=== PATIENT | female | born 1940 | race Caucasian/White ===

== ENCOUNTER → 2023-07-07 09:14 | Outpatient (REF) | payer MEDICARE, BC, SELFPAY | LOC: RAD 09:14 | PROVIDERS: ATTENDING PHYSICIAN Internal Medicine Gastroenterology; FAMILY PHYSICIAN Family Medicine | DX: R14.0 Abdominal distension (gaseous) (principal) | CPT/HCPCS: 74246; 74248 ==

== ENCOUNTER 2023-07-20 08:32 | Day surgery (SDC) | payer MEDICARE, BC, SELFPAY ==
[2023-07-20] VITALS (9 sets, daily range): BP systolic 125–150; BP diastolic 42–76
[2023-07-20] MEDS: CYSVIEW KIT 100 MG INTRAVES (12:25)
[2023-07-20] MEDS: NORMOSOL-R 1000 IV (12:26)
[2023-07-20] MEDS: DETROL LA 4 MG PO (14:01)
[2023-07-20] MEDS: Pyridium 200 MG PO (14:01)
== END 2023-07-20 14:52 | disposition home or self-care (01) ==
LOC: SDS 08:32
PROVIDERS: ATTENDING PHYSICIAN Surgery
DX: N32.89 Other specified disorders of bladder (principal); D49.4 Neoplasm of unspecified behavior of bladder
CPT/HCPCS: 52204; C9738; 88305; A9589

== ENCOUNTER → 2023-10-20 10:55 | Outpatient (REF) | payer MEDICARE, BC, SELFPAY | LOC: RAD 10:55 | PROVIDERS: ATTENDING PHYSICIAN Physician Assistant Medical | DX: I87.2 Venous insufficiency (chronic) (peripheral) (principal) | CPT/HCPCS: 93970 ==

== ENCOUNTER → 2023-11-19 08:58 | Outpatient (REF) | payer MEDICARE, BC, SELFPAY | LOC: RCS 08:58 | PROVIDERS: ATTENDING PHYSICIAN Internal Medicine Cardiovascular Disease; FAMILY PHYSICIAN Physician Assistant Medical | DX: I34.0 Nonrheumatic mitral (valve) insufficiency (principal) | CPT/HCPCS: 93306 ==

== ENCOUNTER 2024-03-16 19:23 | Inpatient (IN) | payer MEDICARE, BC, SELFPAY ==
[2024-03-16] VITALS (7 sets, daily range): BP systolic 132–150; BP diastolic 70–90; BMI 30.6; BMI 29.8
[2024-03-16 15:24] LABS: % Basophils 0.7 % (0-2); % Eosinophils 1.5 % (0-6); % Immature Granulocytes 0.3 % (0-0.5); % Lymphocytes 18.9 % (20.5-51.1); % Monocytes 8.9 % (1.7-9.3); % Neutrophils 69.7 % (42.2-75.2); Absolute Eosinophils 0.1 10^3/uL (0-0.7); Absolute Lymphocytes 1.1 10^3/uL (1.2-3.4); Absolute Monocytes 0.5 10^3/uL (0.1-0.6); Absolute Neutrophils 4.1 10^3/uL (1.4-6.5); Hemoglobin 10.9 g/dL (12.0-16.0); Mean Corp Hgb Conc. 31.1 g/dL (33.0-37.0); Mean Corpuscular Hgb 27.7 pg (27.0-31.0); Mean Corpuscular Volume 88.8 fL (81.0-99.0); Nucleated Red Blood Cells % 0 %; Platelet Count 351 10^3/uL (130-400); Red Blood Cell Count 3.94 10^6/uL (4.20-5.40); Red Cell Dist. Width 17.5 % (11.5-14.5); White Blood Cell Count 5.9 10^3/uL (4.8-10.8)
[2024-03-16 15:29] LABS: ALT (SGPT) 13 U/L (0-35); AST (SGOT) 29 U/L (14-36); Albumin 3.4 g/dl (3.5-5.0); Alkaline Phosphatase 77 U/L (38-126); Blood Urea Nitrogen 32 mg/dl (7-17); Calcium 8.4 mg/dl (8.4-10.2); Carbon Dioxide 28 mmol/L (22-30); Chloride 104 mmol/L (98-107); Glucose 118 mg/dl (70-99); Potassium 4.4 mmol/L (3.5-5.1); Sodium 141 mmol/L (135-145); Total Bilirubin 0.4 mg/dl (0.2-1.3); Total Protein 7.9 g/dl (6.3-8.2)
[2024-03-16 15:31] LABS: Lactic Acid 0.6 mmol/L (0.7-2.0)
--- NOTE | 2024-03-16 15:58 | ED.GENMED ---
History of Present Illness
<Coco Girard PA-C - Last Filed: 03/16/24 20:27>
General
Chief Complaint: Musculo-Skeletal Complaint
Source: patient
Exam Limitations: none
Time Seen by Provider: 03/16/24 15:25
Nursing documentation reviewed up to this point in time: agreed with
History of Present Illness
History of Present Illness:
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
lower extremity pain for the past few weeks. Patient states that when this first started, she noticed pain at the front of her knee and noticed a bump there. Patient reports that it started to become increasingly painful and the pain radiating
down the leg and she also started to get swelling in that leg as well as overlying redness. Patient also reports subjective fevers and chills. Patient states that she went to see her orthopedist Dr. Hamlin today who did her knee replacement and he
aspirated fluid from the left knee mass. Dr. Hamlin is concern for possible intra articular spread as well, patient does have a left knee replacement. She denies chest pain, shortness of breath, nausea or vomiting, diarrhea or constipation. She
states that ambulation is painful, she has not had any recent falls.
Past History
<Coco Girard PA-C - Last Filed: 03/16/24 20:27>
Past History
ED Past Medical History: Arrthythmia, NIDDM, Valvular disease, Hypothyroidism and Other
ED Past Surgical History: Appendectomy, Cardiac (Ablation for SVT/A. fib), Gynecological (Tubal ligation), Orthopedic (Shoulder surgery knee surgery), Tonsilectomy and Other (Eye operation)
Social History
Tobacco: Former smoker
Alcohol: Occasional (One glass a wine per day)
Drug: None
Personal:
Living: with family
Employment: Retired
Family History
Family History: Other (Noncontributory)
Review of Systems
<Coco Girard PA-C - Last Filed: 03/16/24 20:27>
Review of Systems
All Other Systems: ROS reviewed and negative except as documented in HPI and ROS
Phy Exam
<Coco Girard PA-C - Last Filed: 03/16/24 20:27>
Physical Exam
Physical Exam:
General: Patient is well appearing and in no acute distress; non-toxic
Skin: Warm and dry, erythema noted on the left lower extremity with soft tissue swelling, 2 cm fluctuant mass noted to left anterior knee
Head: Normocephalic, atraumatic
Eyes: Sclera non-icteric. EOMs intact.
Cardiac: Heart rate mildly tachycardic, irregular regular rhythm
Peripheral Vascular: Left-sided pedal pitting edema noted
Pulm: Normal respiratory effort, no wheezes, rales, rhonchi
Musculoskeletal: Full range of motion of bilateral lower extremity
Neuro: CN II-XII intact, no focal neurologic deficits.
Psychiatric: Appropriate mood and affect.
Course
<Coco Giradr PA-C - Last Filed: 03/16/24 20:27>
Orders/Labs/Results
Orders:
Orders
03/16/24 14:55
Electrocardiogram (*1) Urgent
Reason for Study: Other
Other Reason for Exam: Possible Sepsis
EKG- Treatment ONCE
03/16/24 15:05
C-Reactive Protein Urgent
Comment: ADD ON
Complete Blood Count/With Diff Urgent
Comprehensive Metabolic Panel Urgent
Erythrocyte Sed Rate Urgent
Comment: ADD ON
Lactic Acid Q4H
Comment: ON ICE, CANCEL 2ND ORDER IF FIRST LACTIC ACID LEVEL <2
03/16/24 16:13
CR Knee - Left 4 Or More View* Urgent
Comment:
Reason For Exam: left knee pain
US Legs, Left [US Periph Venous LOWER Ext LT] Urgent
Comment:
Reason For Exam: left calf swelling
03/16/24 16:24
Electrocardiogram (*1) Urgent
Reason for Study: Tachycardia
Blood Culture Q30M
ONEAL Source: Blood/Venous
Specimen Description:
Blood Culture Q30M
ONEAL Source: Blood/Venous
Specimen Description:
Wound Culture [Wound/Abscess/Other Culture] Urgent
ONEAL Source: Abscess
Specimen Description:
Date Specimen was Collected: 03/16/24
Time Specimen was Collected: 16:22
03/16/24 19:08
Admit/Transfer Patient As Directed
Co-Sign Provider:
Level of Care: Inpatient admission
Assign to:: Telemetry
Physician / Group: hospitalist
Diagnosis: cellulitis
Reason for Telemetry: Medication for Arrhythmia
Date to Stop Telemetry: 03/18/24
Time to Stop Telemetry: 11:00
Reason for Hospitalization: cellulitis
Expected length of stay greater than two midnights?: Yes
ELOS- Estimated Length of Stay in days: 2
I certify the patient meets the requirements for IP care: Yes
PRN Pain Medication Management As Directed
May give lesser potent ordered pain med per pt: Yes
preference::
Protocol:: Medication orders for pain may be administered in a
manner that supports deferring to patient preference
when the pt is:
- Requesting an ordered lesser potent pain medication.
Least to most potent pain medications are defined
as: acetaminophen < NSAID < tramadol < opioids
(morphine, oxycodone, hydromorphone).
- Requesting a lesser dose of the same medication IF
ORDERED.
- Requesting a less intrusive route of administration
if both routes are prescribed by the provider (PO <
IV).
03/16/24 19:10
Code Status As Directed
Resuscitation Status: Full Code
03/16/24 19:20
Add On- LAB Urgent
Tests Added?: CRP, ESR
03/18/24 11:00
DC Protocol for Telemetry ONCE
Abnormal Lab Results
03/16/24
15:05
RBC 3.94 L 10^6/uL
(4.20-5.40)
Hgb 10.9 L g/dL
(12.0-16.0)
Hct 35.0 L %
(37.0-47.0)
MCHC 31.1 L g/dL
(33.0-37.0)
RDW 17.5 H %
(11.5-14.5)
Absolute Lymphs (auto) 1.1 L 10^3/uL
(1.2-3.4)
Lymphocytes % 18.9 L %
(20.5-51.1)
ESR 82 H mm/hour
(0-20)
BUN 32 H mg/dl
(7-17)
Glucose 118 H mg/dl
(70-99)
Lactic Acid 0.6 L mmol/L
(0.7-2.0)
C-Reactive Protein 53.50 H mg/L
(0.0-10.00)
Albumin 3.4 L g/dl
(3.5-5.0)
03/16/24 15:05
03/16/24 15:05
Vital Signs
Initial and Last Documented VS:
Initial Vital Signs
Temp Pulse Resp BP Pulse Ox
99.6 F 127 16 150/90 98
03/16/24 14:51 03/16/24 14:51 03/16/24 14:51 03/16/24 14:51 03/16/24 14:51
Last Documented Vital Signs
Temp Pulse Resp BP Pulse Ox
99.6 F 104 21 133/71 96
03/16/24 14:51 03/16/24 19:15 03/16/24 19:15 03/16/24 17:19 03/16/24 19:15
<Duc Alatorre, DO - Last Filed: 03/16/24 17:16>
Orders/Labs/Results
Orders:
Orders
03/16/24 14:55
Electrocardiogram (*1) Urgent
Reason for Study: Other
Other Reason for Exam: Possible Sepsis
EKG- Treatment ONCE
03/16/24 15:05
C-Reactive Protein Urgent
Comment: ADD ON
Complete Blood Count/With Diff Urgent
Comprehensive Metabolic Panel Urgent
Erythrocyte Sed Rate Urgent
Comment: ADD ON
Lactic Acid Q4H
Comment: ON ICE, CANCEL 2ND ORDER IF FIRST LACTIC ACID LEVEL <2
03/16/24 16:13
CR Knee - Left 4 Or More View* Urgent
Comment:
Reason For Exam: left knee pain
US Legs, Left [US Periph Venous LOWER Ext LT] Urgent
Comment:
Reason For Exam: left calf swelling
03/16/24 16:24
Electrocardiogram (*1) Urgent
Reason for Study: Tachycardia
Blood Culture Q30M
ONEAL Source: Blood/Venous
Specimen Description:
Blood Culture Q30M
ONEAL Source: Blood/Venous
Specimen Description:
Wound Culture [Wound/Abscess/Other Culture] Urgent
ONEAL Source: Abscess
Specimen Description:
Date Specimen was Collected: 03/16/24
Time Specimen was Collected: 16:22
03/16/24 19:08
Admit/Transfer Patient As Directed
Co-Sign Provider:
Level of Care: Inpatient admission
Assign to:: Telemetry
Physician / Group: hospitalist
Diagnosis: cellulitis
Reason for Telemetry: Medication for Arrhythmia
Date to Stop Telemetry: 03/18/24
Time to Stop Telemetry: 11:00
Reason for Hospitalization: cellulitis
Expected length of stay greater than two midnights?: Yes
ELOS- Estimated Length of Stay in days: 2
I certify the patient meets the requirements for IP care: Yes
PRN Pain Medication Management As Directed
May give lesser potent ordered pain med per pt: Yes
preference::
Protocol:: Medication orders for pain may be administered in a
manner that supports deferring to patient preference
when the pt is:
- Requesting an ordered lesser potent pain medication.
Least to most potent pain medications are defined
as: acetaminophen < NSAID < tramadol < opioids
(morphine, oxycodone, hydromorphone).
- Requesting a lesser dose of the same medication IF
ORDERED.
- Requesting a less intrusive route of administration
if both routes are prescribed by the provider (PO <
IV).
03/16/24 19:10
Code Status As Directed
Resuscitation Status: Full Code
03/16/24 19:20
Add On- LAB Urgent
Tests Added?: CRP, ESR
03/18/24 11:00
DC Protocol for Telemetry ONCE
Abnormal Lab Results
03/16/24
15:05
RBC 3.94 L 10^6/uL
(4.20-5.40)
Hgb 10.9 L g/dL
(12.0-16.0)
Hct 35.0 L %
(37.0-47.0)
MCHC 31.1 L g/dL
(33.0-37.0)
RDW 17.5 H %
(11.5-14.5)
Absolute Lymphs (auto) 1.1 L 10^3/uL
(1.2-3.4)
Lymphocytes % 18.9 L %
(20.5-51.1)
ESR 82 H mm/hour
(0-20)
BUN 32 H mg/dl
(7-17)
Glucose 118 H mg/dl
(70-99)
Lactic Acid 0.6 L mmol/L
(0.7-2.0)
C-Reactive Protein 53.50 H mg/L
(0.0-10.00)
Albumin 3.4 L g/dl
(3.5-5.0)
03/16/24 15:05
03/16/24 15:05
Vital Signs
Initial and Last Documented VS:
Initial Vital Signs
Temp Pulse Resp BP Pulse Ox
99.6 F 127 16 150/90 98
03/16/24 14:51 03/16/24 14:51 03/16/24 14:51 03/16/24 14:51 03/16/24 14:51
Last Documented Vital Signs
Temp Pulse Resp BP Pulse Ox
99.6 F 104 21 133/71 96
03/16/24 14:51 03/16/24 19:15 03/16/24 19:15 03/16/24 17:19 03/16/24 19:15
Keyurlt;Coco Girard PA-C - Last Filed: 03/16/24 20:27>
MDM/Problems Addressed
Differential Diagnosis Includes:
Differentials include osteoarthritis, septic arthritis, cellulitis, abscess, folliculitis,
MDM/Problems Addressed:
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
lower extremity pain for the past few weeks. She also started develop redness and swelling of the left lower extremity. On physical exam, she has a fluctuant mass noted to the left anterior knee with associated surrounding erythema and swelling.
She saw her orthopedist today who is concerned about possible septic arthritis versus MRSA infection of the skin. Will admit for further evaluation IV antibiotics. Patient accepted by hospitalist for admission.
Chronic conditions affecting care:
Chronic spinal infection, hypothyroidism, chronic UTIs
<Coco Girard PA-C - Last Filed: 03/16/24 20:27>
*Pulse Oximetry
Patient hypoxic: no
*Critical Care Note
Total Time (30-74mins, 75-104mins- exclusive of procedures): Not Applicable
Data Reviewed
Review of Other/Old Records Reveals: Records (Reviewed discharge summary from 01/08/2023, patient seen for shortness of breath)
Source: patient and records
<Coco Girard PA-C - Last Filed: 03/16/24 20:27>
Patient Management
Discussion with other providers: Assignment Agent (Dr. Hamlin)
Escalation/DeEscalation of care consider admission/obs:
I did speak to Dr. Hamlin on the phone today regarding patient's case--he recommends patient be admitted and expresses concern that there may be infection within the joint itself. He saw the patient in the office today and aspirated fluid from the
abscess. He does not want knee joint aspiration or I and D of the abscess at this time and reports that an I&D of the knee abscess is too high risk and would like to take patient to the OR for incision and drainage.
ED Attending Note
<MICK Del Cid Last Filed: 03/16/24 20:27>
-
Portions of this chart may have been created with voice recognition software.� Occasional wrong word or��sound alike� substitutions may have occurred due to the inherent limitations of voice recognition software.
<Duc Alatorre DO - Last Filed: 03/16/24 17:16>
ED Attending Note
Patient seen and examined by attending physician: Yes
I performed the substantive portion of visit, reviewed & personally made and approve the management plan that is documented in note by myself or ANGEL.: Yes
ED Attending Note:
I have seen and evaluated the patient with a [id number] encounter. I have spoken to the advance practicer provider and involved in the medical history, the physical exam, medical decision making.
Evaluation and management service: agree unless noted differently below.
Results interpretation: agree unless noted differently below.
Focused HPI: 84-year-old female presenting for evaluation of abscess to her left leg. Patient orthopedics. It was apparently drained and sent for culture. She is already on chronic doxycycline for spine infection
Physical exam: Sitting in bed comfortably. Abscess noted to right leg around the tibial plateau. Surrounding cellulitic changes noted
Medical Decision Making: Orthopedics and the patient and will evaluate in the morning. Will admit
Discharge Plan
Departure
Patient Disposition: Admit
Date of Disposition: 03/16/24
Time of Disposition: 18:41
Admit to: Telemetry
Presentation/result/management discussed w/ accepting MD/DO: Hospitalist
Condition: Fair
Discharge Problem:
Cellulitis, Infection of knee
Interventions
Interventions:
*Risk Screen - Suicide Last Done: 03/16/24 14:51
*General Assessment Last Done: 03/16/24 14:51
*Neglect/Abuse Screening Last Done: 03/16/24 14:51
ED- Fall Risk Assessment Last Done: 03/16/24 15:45
*ED COVID-19 Vaccine History Last Done: 03/16/24 15:45
ED-Musculoskeletal Assessment Last Done: 03/16/24 15:45
--- NOTE | 2024-03-16 18:57 | HPS.HSE ---
Family Physician
-
Family Physician: Nannette Louise
Chief Complaint
-
Left leg swelling and redness
History of Present Illness
84 y.o female with a past medical history significant for proximal atrial fibrillation on anticoagulation, hypertension, CHF, hypothyroid and history of spinal surgery and chronic bacterial suppression with doxycycline presenting to the emergency
department with swelling and redness of the left leg.
Patient reports that she has been having pain and swelling in that leg for a few weeks now. States he particularly notices the swelling has worsened a few days ago. She complained of redness below the knee to just above the ankle. She has some
mild ambulatory difficulties with this. She reports having chills at home. She denies of maggy fevers. Patient has a history of spine surgery with implanted foreign body, incidental finding of possible abscess during that procedure and is now
currently on chronic doxycycline suppression. He has had no recent hospitalizations. She denies water antibiotic use recently.
She was seen in the office today and had a incision and drainage with culture sent.
In the Emergency Department she was afebrile with temp of 99.6, blood pressure was 133/71 and satting 99% room air. ECG shows atrial fibrillation at a ventricular rate of 111. CBC was unremarkable. Likewise electrolytes BUN/creatinine were within
normal limits. Ultrasound of the left lower extremities negative for DVT.
Medical History
Past Medical History
Past Medical History: Reports Arrhythmia (Atrial fibrillation), CHF, HTN, Hypercholesterolemia and Hypothyroidism
Past Surgical History: Reports Orthopedic (Spine surgery, bilateral total knee arthroplasty)
Social History
Tobacco: Non-smoker
Alcohol: None
Drug: None
Personal:
Living: With Family
Employment: Retired
Family History
Family History: Not pertinent
Allergies / Home Medications
Allergies reflects when Allergies were last updated in [employer].
Home Medications with original date entered in [employer]
Allergy/Medication List:
Allergies
Allergy/AdvReac Type Severity Reaction Status Date / Time
vancomycin Allergy Itching, Verified 03/16/24 14:51
Lip
swelling,
Erythema
Home Medications
ascorbic acid (vitamin C) 500 mg tablet (Vitamin C) 500 mg PO DAILY Supplement 12/01/12
levothyroxine 125 mcg tablet 125 mcg PO DAILY@0400 Thyroid 12/01/12
cholecalciferol (vitamin D3) 50 mcg (2,000 unit) tablet 2,000 unit PO DAILY Supplement 12/02/12
calcium carbonate 600 mg PO DAILY Supplement 12/10/20
vitamin E 670 mg (1,000 unit) capsule 1,000 unit PO DAILY Supplement 12/10/20
atorvastatin 10 mg tablet (Lipitor) 10 mg PO DAILY High cholesterol 07/23/22
omeprazole 20 mg tablet,delayed release 20 mg PO DAILY gerd 07/23/22
apixaban 5 mg tablet (Eliquis) 5 mg PO BID Blood Clot Prevention/Tx 01/06/23
cyanocobalamin (vitamin B-12) 500 mcg tablet 500 mcg PO DAILY Supplement 01/06/23
losartan 25 mg tablet 25 mg PO DAILY Blood Pressure 01/06/23
potassium chloride 10 mEq tablet,extended release 20 meq PO DAILY Electrolyte Repletion 01/06/23
acetaminophen 500 mg tablet 1,000 mg PO Q6HPRN PRN mild pain 07/15/23
darbepoetin joseluis in polysorbat 200 mcg/0.4 mL in polysorbate injection syringe (Aranesp) 200 mcg SC DAILYPRN PRN Hgb<11 07/15/23
doxycycline hyclate 100 mg tablet 100 mg PO BID 07/15/23
gabapentin 100 mg capsule 100 mg PO TID 07/15/23
albuterol sulfate 90 mcg/actuation aerosol inhaler 2 puff inhalation R Q6HPRN PRN sob 03/16/24
furosemide 40 mg tablet 40 mg PO DAILY 03/16/24
metoprolol succinate 25 mg tablet,extended release 24 hr 12.5 mg PO DAILY 03/16/24
polyethylene glycol 3350 17 gram oral powder packet (Miralax) 17 g PO DAILYPRN PRN constipation 03/16/24
Review of Systems
-
Constitutional: Reports Chills
EENT: Reports No Symptoms
Respiratory: Reports No Symptoms
Cardiac: Reports No Symptoms
Abdomen/GI: Reports No Symptoms
: Reports No Symptoms
Musculoskeletal: Reports Joint Swelling
Skin: Reports Rash and Other
Neurological: Reports No Symptoms
Endocrine: Reports No Symptoms
Hematologic/Lymphatic: Reports No Symptoms
Psych: Reports No Symptoms
Physical Exam
Vital Signs
Vital Signs
Temp Pulse Resp BP Pulse Ox
99.6 F 110 23 133/71 98
03/16/24 14:51 03/16/24 17:30 03/16/24 17:30 03/16/24 17:19 03/16/24 17:19
Physical Exam
General: Well Developed, Well Nourished and No Apparent Distress
HEENT: NormoCephalic, Anicteric, Moist mucous membranes and Atraumatic
Respiratory: Clear
Cardiac: S1/S2 and Irregular Rhythm
Breast: Deferred by me
GI: Soft, Non Tender, Non Distended and Normal Bowel Sounds
Genito-urinary: Deferred by me
Musculoskeletal: No Clubbing, No Cyanosis, No Edema and Other (No joint effusion)
Skin: Warm and Other (Small collection just below the knee, skin redness in the left leg above the ankle and below the knee. Mild induration.)
Neuro: AO x 3
Hematologic/Lymphatic: No Lymphadenopathy
Psych: Calm
Laboratory Results
-
03/16/24 15:05
03/16/24 15:05
Laboratory Results
Lactic Acid Cancelled 03/16/24 19:00
Total Bilirubin 0.4 mg/dl (0.2-1.3) 03/16/24 15:05
AST 29 U/L (14-36) 03/16/24 15:05
ALT 13 U/L (0-35) 03/16/24 15:05
Alkaline Phosphatase 77 U/L (38-126) 03/16/24 15:05
Data Reviewed
-
Diagnostic Radiology: Image Personally Visualized and interpreted
Ultrasound: Report Reviewed by me
Medical Tests (Nuc Med, Echo, EKG etc): Image Personally Visualized and interpreted
Lab Data: Labs Reviewed by me
Old Records: Reviewed
Impression/Plan
-
IMPRESSION:
PLAN:
1. Purulent Cellulitis - There is obvious fluid collection, erythema and edema. She has low grade temps. The collection is below the knee. The knee does not show effusion, no decrease in ROM. No tenderness to palpation of knee. Possible
bursitis.
- admit to telemetry due to afib
- she has had blood and fluid cultures sent
- abx regimen = clindamycin iv (hx of urine mrsa but otherwise no mrsa history) but concern for caMRSA. Patient on oral doxycycline chronically and has severe allergy to vancomycin
- ID consult
- Dr. Davis had office visit with tap of overlying abscess on the left knee and culture and wants to see in am, did not consult.
2. pAFIB - Slightly tachycardic afib
- amio 200 daily
- continue rate control with metoprolol succinate with prn metoprolol tartrate iv
- apixaban
3. Mitral regurge/ CHF - euvolemic
- continue lasix 40 daily, losartan 25 daily with hold parameters
DVT PPX - on apixaban
Code status - full code
[2024-03-16 19:56] LABS: Erythrocyte Sed Rate 82 mm/hour (0-20)
[2024-03-16] MEDS: CLEOCIN 50 IV (22:11)
[2024-03-16] MEDS: NEURONTIN 100 MG PO (22:11)
[2024-03-16] MEDS: VIBRAMYCIN 100 MG PO (22:11)
[2024-03-16] MEDS: ZOFRAN 4 MG IV (22:54)
--- NOTE | 2024-03-17 01:33 | PTCARENOTE ---
Pt transferred from ED. Pt ambulated into room with assistance. Pt AAOX3, able to make needs known, VSS. Pt oriented to unit, call parker within reach. Will continue with current plan.
[2024-03-17 03:02] VITALS: BP 119/69
[2024-03-17] MEDS: SYNTHROID 125 MCG PO (03:17)
[2024-03-17] MEDS: CLEOCIN 50 IV (03:18)
[2024-03-17 05:35] VITALS: BMI 29.8
[2024-03-17 07:00] VITALS: BP 128/81
--- NOTE | 2024-03-17 07:45 | W.PN.UPDATE ---
Addendum entered and electronically signed by Erich Hamlin MD 03/17/24 14:28:
Patient seen and examined. AVSS. Unchanged from yesterday. WBC normal. ESR 82 and CRP 53.5. Gram stain without bacteria. Blood cultures and abscess cultures pending. Appreciate ID consult and hospitalist assistance. MRI reveals a collection
in the pes bursa with some fluid about the knee joint. Knee ROM is 0-105 degrees without increased pain. Thickened synovium about the knee joint without erythema. Erythema and swelling as yesterday distal to the knee joint in the area of the pes
bursa. Have discussed treatment with the patient and her . Have recommended bedside aspiration of the knee joint to determine if concern for periprosthetic joint infection. Knee prepped with betadine and alcohol. No fluid able to be
aspirated from the knee joint. Based on an dry tap of the knee joint, highly unlikely patient currently has periprosthetic infection. Plan for tomorrow for I&D of the pes bursa without entering the knee joint. NPO after MN. Hold Eliquis. May
continue antibiotics.
Original Note:
Update Note
Progress Note Update
Patient underwent left total knee arthroplasty nearly [address] Hamlin. Unfortunately she has noted painful swelling with redness over the anterior aspect of her knee. X-rays of the left knee are negative for fracture, dislocation or
evidence of mechanical failure. She did undergo ultrasound which was negative for DVT but edema noted in the lower extremity. Dr. Hamlin did see her in office yesterday and aspirated the prepatellar region for blood/purulent fluid which he sent
for cultures with sensitivities. She was admitted to the hospital and started on antibiotics. Patient has declined her Eliquis last night. Her last dose of Eliquis was March 16, 2020 4 in the morning. No white count while ESR is 82 and CRP
was 53.50. Examination of the left knee had well-healed surgical incision. No pain to palpation about the knee joint. No significant effusion appreciated. Passive motion 0 to 90 degrees without pain and no evidence of instability. Along the
prepatella region there is a small pustule with trace erythema and fluctuance in the prepatellar bursa. Minimal pain noted in this vicinity. Calf is soft and nontender. Distal neurovascular was intact. At this juncture I am going to order MRI of
the left knee with that suppression for surgical planning. She is going to be n.p.o. after midnight. Dr. Hamlin to reevaluate later today.
[2024-03-17 08:00] VITALS: BMI 29.8
[2024-03-17] MEDS: VIBRAMYCIN 100 MG PO (08:00)
[2024-03-17] MEDS: LIPITOR 10 MG PO (08:00)
[2024-03-17] MEDS: NEURONTIN 100 MG PO ×3 (08:00→20:57)
[2024-03-17] MEDS: COZAAR 25 MG PO (08:00)
[2024-03-17] MEDS: LASIX 40 MG PO (08:00)
[2024-03-17] MEDS: TOPROL XL 12.5 MG PO (08:01)
[2024-03-17] MEDS: PROTONIX 40 MG PO (08:01)
[2024-03-17 08:41] LABS: Hematocrit 30.4 % (37.0-47.0); Hemoglobin 9.4 g/dL (12.0-16.0); Mean Corp Hgb Conc. 30.9 g/dL (33.0-37.0); Mean Corpuscular Hgb 28.1 pg (27.0-31.0); Mean Platelet Volume 9.3 fL (7.4-10.4); Platelet Count 267 10^3/uL (130-400); Red Blood Cell Count 3.34 10^6/uL (4.20-5.40); Red Cell Dist. Width 17.5 % (11.5-14.5); White Blood Cell Count 4.3 10^3/uL (4.8-10.8)
[2024-03-17 08:55] LABS: Blood Urea Nitrogen 26 mg/dl (7-17); Calcium 7.6 mg/dl (8.4-10.2); Carbon Dioxide 26 mmol/L (22-30); Chloride 105 mmol/L (98-107); Estimated Creatinine Clearance 48 ml/min; Glucose 83 mg/dl (70-99); Magnesium 1.7 mg/dl (1.6-2.3); Potassium 4.2 mmol/L (3.5-5.1); Sodium 139 mmol/L (135-145); eGFR > 60.00
--- NOTE | 2024-03-17 09:32 | CON.ID ---
Consultation
-
Date/Time Consultation Requested: March 17 [id number]
Date/Time Consultation Performed: March 17, 2024 [id number]
Requesting Provider: Dr. Cisco Kamara
Performing Provider: Dr. Sushila Bueno
Reason for Consultation: Purulent cellulitis, chronic antibiotic suppression with doxycycline
Chief Complaint / Past History
Chief Complaint
Keft knee swelling and pain
History of Present Illness
84-year-old female with history of atrial fibrillation, hypothyroidism, history of spinal fusion with hardware and incidental finding of abscess while in OR currently on chronic doxycycline since 2020, history of left total knee replacement 2015 who
was sent to the ED from orthopedics office on March 16 due to left knee abscess and cellulitis. Patient noted a small lump below the left knee approximately end of February. The lump continued to enlarge. She has discomfort. Then her left leg
became swollen. She developed redness from the lump extending down to her ankle. She saw orthopedic yesterday in the office who aspirated the lump with pus and blood. She was sent to the ER. She brought the aspirated fluid with her and currently
culture in progress. She denies fevers. Positive chills. No trauma or abrasion to the leg. She is able to ambulate. Mild chronic back pain stable.
Past History
Additional Past Medical History:
Spine fusion with hardware (10/2020) at [facility] with incidental finding of abscess, cx ?MSSA s/p 6 weeks ?IV cefazolin then on doxycycline suppression
Afib
CHF
HTN
HLD
Hypothyroidism
Depression
BORIS
Interstitial cystitis
Left knee TKR 2015
Right knee TKR
Arthroscopy right shoulder.
Tonsillectomy.
Appendectomy.
Tubal ligation.
Allergy History:
vancomycin Allergy (Verified 03/16/24 14:51)
Itching, Lip swelling, Erythema
Amiodarone - skin black discoloration
Medications Reviewed: Yes
Current Antibiotics:
Clindamycin 900mg IV q8h
Doxycycline (chronic)
Social History
Tobacco: Non-Smoker
Alcohol: None
Drug: None
Personal:
Living: With Family
Family History
Family History: Not Pertinent
Review of Systems
Review of Systems
General: Chills; Negative Fever or Change in Appetite
HEENT: Negative Sinus Problems or Headache
Cardiovascular: Negative Chest Pain or Dyspnea
Respiratory: Negative Dyspnea or Cough
Gasteroenterology: Negative Nausea or Vomiting
Genital / Urological: Negative Dysuria or Flank Pain
Endocrine: Negative Weakness
Neurological: Negative Headache or Dizziness
All systems: All other systems were reviewed and were negative
Vital Signs
Temp Pulse Resp BP Pulse Ox
97.8 F 87 18 119/69 96
03/17/24 03:02 03/17/24 03:02 03/17/24 03:02 03/17/24 03:02 03/17/24 03:02
Physical Exam
Physical Exam
Constitutional: No Acute Distress and Comfortable
Eyes: No Conjunctival Hemorrhage and Sclera Anicteric
Cardiovascular: Regular Rate and S1/S2
Pulmonary: Clear
Gastrointestinal: Soft, Non Tender, Non Distended and Normal Bowel Sounds
Genito-Urinary: Negative CVA Tenderness
Extremities: Erythema (LLE below knee to ankle) and Other (Below left knee + abscess); Negative Edema (LLE 3+ edema)
Musculoskeletal: Other (Left knee no erythema, + induraion, ROM intact)
Skin: Other (black skin discoloration anterior BLE)
Neurological: AO x 3
Lab / Diagnostic Study Results
03/17/24 06:49
03/17/24 06:49
Abs Immat Gran (auto) 0.0 10^3/uL (0-0.05) 03/16/24 15:05
Absolute Neuts (auto) 4.1 10^3/uL (1.4-6.5) 03/16/24 15:05
Absolute Lymphs (auto) 1.1 10^3/uL (1.2-3.4) L 03/16/24 15:05
Absolute Monos (auto) 0.5 10^3/uL (0.1-0.6) 03/16/24 15:05
Absolute Basos (auto) 0.0 10^3/uL (0-0.2) 03/16/24 15:05
Immature Gran % 0.3 % (0-0.5) 03/16/24 15:05
Neutrophils % 69.7 % (42.2-75.2) 03/16/24 15:05
Lymphocytes % 18.9 % (20.5-51.1) L 03/16/24 15:05
Monocytes % 8.9 % (1.7-9.3) 03/16/24 15:05
Eosinophils % 1.5 % (0-6) 03/16/24 15:05
Basophils % 0.7 % (0-2) 03/16/24 15:05
ESR Cancelled 03/16/24 18:42
Lactic Acid Cancelled 03/16/24 19:00
C-Reactive Protein Cancelled 03/16/24 18:42
Microbiology Results
Micro:
03/16/24 16:24 Blood Culture - Pending
Blood/Venous
03/16/24 16:24 Blood Culture - Pending
Blood/Venous
03/16/24 16:24 Wound Culture - Pending
Abscess Gram Stain - Pending
03/16/24 Left knee XRAY: Left total knee arthroplasty in place without radiographic evidence for acute periprosthetic fracture or hardware loosening. Moderate-sized left knee joint effusion and moderate diffuse anterior soft tissue
swelling/subcutaneous edema (possibly secondary to infection).
Assessment / Plan
# Left knee soft tissue abscess, septic bursitis
# LLE cellulitis
# Vancomycin allergy - lip swelling, rash
- Await aspirated fluid culture
- DC Clindamycin
- Start daptomycin. Follow CK
- For I+D, bursectomy per Ortho. Pls send deep cultures.
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
- Per pt, spinal fusion with hardware (10/2020) at [facility] with incidental finding of abscess, cx ?MSSA s/p 6 weeks ?IV cefazolin then on doxycycline suppression
- Will obtain OR report and culture from [facility]
- Hold doxycycline while on Daptomycin.
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
Spine fusion with hardware (10/2020) at [facility] with incidental finding of abscess, cx ?MSSA s/p 6 weeks ?IV cefazolin then on doxycycline suppression
Afib
CHF
HTN
HLD
Hypothyroidism
Depression
BORIS
Interstitial cystitis
Left knee TKR 2015
Right knee TKR
Arthroscopy right shoulder.
Tonsillectomy.
Appendectomy.
Tubal ligation
[2024-03-17 11:00] VITALS: BP 126/77
--- NOTE | 2024-03-17 11:35 | W.PN.HOSP.TC ---
Today's Communication/Plan
-
see PN
Assessment / Plan
Assessment / Plan
84yo F with PMHx of HTN, HFpEF, hypothyroidism, neuropathy, HLD, a.fib on eliquis, Hx of spinal Sx with recent fall and hardware dislodgement found 2 mo ago (already followed with her NeuroSx) b/l TKA came with L knee sweeling, redness and
infrapatellar collection worsening for past 2 weeks to the point that patient could not use her leg. Was sen by ortho and sent to ED.US found abscess that was aspirated.
A/P:
#L knee abscess, cellulitis, concern for arthritis (less likely)
Dapro as per ID
follow abscess Cx
Follow Bcx
MRI knee
Ortho consult
US le neg for DVT
#HLD
#Hypothyroidism
#Essential HTN
#Neuropathy
#chronic HFpEF
#Afib, paroxysmal
Cont home meds
#Anemia, chronic
anemia w/u
check FOBT if possible
#Hypocalcemia
#Hypomagnesemia
replete and follow
DVT ppx on Eliquis
FUll code
I have spent at least 59min reviewing chart, test results, communication with consultants and direct patient care
Anticipated Discharge: > 48 hours
Subjective/Interval History
-
Date of Service: March 17, 2024
Objective Data
-
Labs:
Laboratory Results
03/17/24
06:49
WBC 4.3 L
Hgb 9.4 L
Hct 30.4 L
Plt Count 267 D
Sodium 139
Potassium 4.2
Chloride 105
Carbon Dioxide 26
BUN 26 H
Creatinine 0.9
Glucose 83
Calcium 7.6 L
Vital Signs:
Vital Signs
Temp Pulse Resp BP Pulse Ox
99.3 F 110 20 128/81 100
03/17/24 07:00 03/17/24 07:00 03/17/24 07:00 03/17/24 07:00 03/17/24 08:00
I&O
03/16/24 03/17/24 03/18/24
06:59 06:59 06:59
Intake Total 240 / 240
Balance 240 / 240
Review of Systems
-
History Source: Patient
All other systems: Reviewed and negative
Musculoskeletal: Reports Joint Pain
Physical Exam
-
General: No Apparent Distress
HEENT: Moist Mucous Membranes
Musculoskeletal: No Clubbing, No Cyanosis and Other (L knee swelling)
Skin: Other (multiple bruising over UE and LE)
Neuro: Awake, Alert, Oriented and AO x 3
Psych: Calm
[2024-03-17] MEDS: OSCAL CAL 500 1000 MG PO (12:02)
[2024-03-17] MEDS: MAGNESIUM OXIDE 500 MG PO (12:03)
[2024-03-17] MEDS: CUBICIN 10 MG IV (12:22)
--- NOTE | 2024-03-17 12:46 | CM ---
CM reviewed chart, patient seen bedside. Patient resides with her in a single story home, two steps to enter through garage (grab rails into home). Patient reports having a cane for ambulation, has had [facility] in past, reports SNF in past ([facility]). Patient confirms PCP Nannette Louise, pharmacy [facility], confirms prescription coverage. Patient denies insecurities at home. Patient on IV antibiotics. CM will continue to follow for all discharge planning needs.
Plan;home with spouse, watch for VN needs
[2024-03-17 15:00] VITALS: BP 118/83
[2024-03-17 20:03] VITALS: BP 121/70
[2024-03-17] MEDS: MIRALAX 17 GRAMS PO (20:54)
[2024-03-17 23:30] VITALS: BP 118/62
[2024-03-18] VITALS (18 sets, daily range): BP systolic 81–128; BP diastolic 47–76; BMI 29.8
[2024-03-18] MEDS: SYNTHROID 125 MCG PO (04:56)
[2024-03-18 08:09] LABS: ALT (SGPT) 12 U/L (0-35); AST (SGOT) 23 U/L (14-36); Albumin 2.9 g/dl (3.5-5.0); Alkaline Phosphatase 69 U/L (38-126); Blood Urea Nitrogen 28 mg/dl (7-17); Calcium 8.2 mg/dl (8.4-10.2); Carbon Dioxide 31 mmol/L (22-30); Chloride 104 mmol/L (98-107); Creatine Phosphokinase 39 U/L (30-135); Estimated Creatinine Clearance 43 ml/min; Glucose 89 mg/dl (70-99); Iron 61 ug/dl (37-170); LDH 207 U/L (120-246); Potassium 4.4 mmol/L (3.5-5.1); Sodium 142 mmol/L (135-145); Total Bilirubin 0.3 mg/dl (0.2-1.3); Total Protein 6.9 g/dl (6.3-8.2)
[2024-03-18 08:17] LABS: % Basophils 0.7 % (0-2); % Eosinophils 2.3 % (0-6); % Immature Granulocytes 0.5 % (0-0.5); % Lymphocytes 19.6 % (20.5-51.1); % Monocytes 9.8 % (1.7-9.3); % Neutrophils 67.1 % (42.2-75.2); Absolute Eosinophils 0.1 10^3/uL (0-0.7); Absolute Lymphocytes 0.9 10^3/uL (1.2-3.4); Absolute Monocytes 0.4 10^3/uL (0.1-0.6); Hematocrit 34.1 % (37.0-47.0); Hemoglobin 10.3 g/dL (12.0-16.0); Mean Corp Hgb Conc. 30.2 g/dL (33.0-37.0); Mean Corpuscular Volume 92.7 fL (81.0-99.0); Mean Platelet Volume 9.5 fL (7.4-10.4); Nucleated Red Blood Cells % 0 %; Platelet Count 276 10^3/uL (130-400); Red Blood Cell Count 3.68 10^6/uL (4.20-5.40); Red Cell Dist. Width 17.5 % (11.5-14.5); Reticulocyte Count 1.4 % (0.4-2.8); White Blood Cell Count 4.4 10^3/uL (4.8-10.8)
[2024-03-18 08:19] LABS: Percent Saturation 35 % (20-50); Total Iron Binding Capacity 172 ug/dl (265-497)
--- NOTE | 2024-03-18 08:23 | W.PN.UPDATE ---
Update Note
Progress Note Update
84-year-old female plan for or today 18 March 2024 for right Pez anserine debridement irrigation
-N.p.o.
-Hold Eliquis
-Consent on file
-Continue antibiotics
[2024-03-18 08:45] LABS: Ferritin 62.1 ng/ml (11.1-264.0)
[2024-03-18] MEDS: PROTONIX 40 MG PO (08:59)
[2024-03-18] MEDS: OSCAL CAL 500 1000 MG PO (08:59)
[2024-03-18] MEDS: LASIX 40 MG PO (09:00)
[2024-03-18] MEDS: TOPROL XL 12.5 MG PO (09:00)
[2024-03-18] MEDS: NEURONTIN 100 MG PO ×3 (09:00→21:57)
[2024-03-18] MEDS: COZAAR 25 MG PO (09:00)
[2024-03-18] MEDS: MAGNESIUM OXIDE 500 MG PO (09:00)
[2024-03-18] MEDS: LIPITOR 10 MG PO (09:00)
[2024-03-18 09:17] LABS: Folate 10.1 ng/ml (2.76-20); Vitamin B12 > 1000 pg/ml (239-931)
[2024-03-18] MEDS: CUBICIN 10 MG IV (12:17)
--- NOTE | 2024-03-18 12:55 | W.PN.HOSP.TC ---
Today's Communication/Plan
-
cont Abx
Assessment / Plan
Assessment / Plan
84yo F with PMHx of HTN, HFpEF, hypothyroidism, neuropathy, HLD, a.fib on eliquis, Hx of spinal Sx with recent fall and hardware dislodgement found 2 mo ago (already followed with her NeuroSx) b/l TKA came with L knee sweeling, redness and
infrapatellar collection worsening for past 2 weeks to the point that patient could not use her leg. Was seen by ortho and sent to ED. US found abscess that was aspirated. Plan for further I&D by ortho as MRI showed abscess and with concern for
septic joint, however less likely as per ortho due to dry tap.
A/P:
#L knee abscess, cellulitis, concern for arthritis (less likely)
Dapro as per ID
follow abscess Cx
Follow Bcx
MRI knee
Ortho consult
US le neg for DVT
#HLD
#Hypothyroidism
#Essential HTN
#Neuropathy
#chronic HFpEF
Cont home meds
#Anemia, chronic, MIGUEL
Outpatient f/u
Iron recommended
check FOBT if possible
#Afib, paroxysmal
poorly controlled
Cardiology follow up
Telemetrt
cont Eliquis when able (stopped for I&D by ortho)
#Hypocalcemia
#Hypomagnesemia
replete and follow
DVT ppx on SCDs
FUll code
I have spent at least 58min reviewing chart, test results, communication with consultants and direct patient care
Anticipated Discharge: > 48 hours
Subjective/Interval History
-
Date of Service: March 18, 2024
Objective Data
-
Labs:
Laboratory Results
03/18/24
07:07
WBC 4.4 L
Hgb 10.3 L
Hct 34.1 L
Plt Count 276
Sodium 142
Potassium 4.4
Chloride 104
Carbon Dioxide 31 H
BUN 28 H
Creatinine 1.0
Glucose 89
Calcium 8.2 L
Total Bilirubin 0.3
AST 23
ALT 12
Alkaline Phosphatase 69
Vital Signs:
Vital Signs
Temp Pulse Resp BP Pulse Ox
97.5 F 115 18 119/76 96
03/18/24 11:10 03/18/24 11:10 03/18/24 11:10 03/18/24 11:10 03/18/24 11:10
I&O
03/17/24 03/18/24 03/19/24
06:59 06:59 06:59
Intake Total 240 / 240 480 / 480
Balance 240 / 240 480 / 480
Review of Systems
-
History Source: Patient
All other systems: Reviewed and negative
Physical Exam
-
General: No Apparent Distress
HEENT: Normocephalic
Respiratory: Clear to Auscultation
GI: Soft, Nontender and Nondistended
Musculoskeletal: No Clubbing, No Cyanosis and Other (L knee swelling)
Neuro: Awake, Alert, Oriented and AO x 3
Psych: Calm
--- NOTE | 2024-03-18 13:09 | CON.CAR ---
Addendum entered and electronically signed by Mahendra Esposito MD 03/18/24 14:11:
I saw and examined the patient.
The PARALEGAL LEGAL SECRETARY or PA's note was reviewed and I agree with the note.
Comment: General: Well developed, well nourished in NAD.
Neck: Supple, no JVD, HJR, carotids +2 B/L, no bruits bilaterally.
Heart: Non displaced PMI, irregular, no murmurs, No S3, S4, no rubs.
Lungs: Scattered rhonchi
Extremities: Black discoloration of legs bilaterally
Neuro: Grossly nonfocal, awake, alert and oriented x3.
Nicolette has a history of chronic diastolic CHF ejection fraction 40-45%, paroxysmal atrial flutter status post cardioversion July 2022 as well as PVI and atrial tach ablation 2020 on chronic Eliquis, left bundle branch block, hypertension. She
presented with possible left knee abscess. She is noted to be in atrial tachycardia and cardiology consulted. No she has no symptoms of palpitations, chest pain, shortness of breath
Discussed with patient and in detail. She does not want to have another cardioversion. She thinks she could have had a vertebrae issue at the last cardioversion. Of note amiodarone had been stopped in January 2024 and may have been the
cause of the recurrent atrial tachycardia. At this point we will rate control and continue Eliquis. Will increase Toprol. A second ablation has been discussed and this can be pursued as an outpatient but for need to remain on Eliquis indefinitely
either way and is asymptomatic. Other option would be to change to Tikosyn or sotalol.
Original Note:
Consultation
Consultation Request
Date/Time Consultation Requested: 03/18/2024
Date/Time Consultation Performed: 03/18/2024
Requesting Provider: Dr. Kamara
Performing Provider: Dr. Esposito
Reason for Consultation: Afib w/ RVR
Medical History
-
History of Present Illness:
HPI: Nicolette is an 84 year old female with PMH of chronic HFmrEF, NICM, paroxysmal atrial fibrillation/flutter, LBBB, MR, HTN, HLD, BORIS, hypothyroidism, and GERD. She [facility] to [facility] for evaluation of LLE pain and swelling. She was seen by
orthopedics earlier in the day and had an area around her knee drained. There was concern for possible intra-articular spread and she was sent to ER for further workup and management. In ER, US negative for DVT. She was admitted with cellulitis/ L
knee abscess and was started on antibiotics. In ER she was noted to be in atrial fibrillation w/ RVR. She was continued on her usual medications and Eliquis was held in preparation for pes anserine debridement and irrigation 03/18. Cardiology
consulted for evaluation due to uncontrolled heart rates in atrial fibrillation.
PMH:
Chronic HFmrEF
NICM EF 40-45%
Paroxysmal typical atrial flutter 07/23/22
urgent CV in ER restoring SR with blocked PACs and PVCs 07/23/22
Paroxysmal Afib/tach
s/p PVI and Atach ablation 12/10/20
Chronic Eliquis OAC
Chronic LBBB
Moderate to severe MR by TTE 07/23/22, but more mild to moderate by LYNETTE 08/22/22
Aortic sclerosis without stenosis
HTN
Hyperlipidemia
Chronic back pain s/p back surgery at [facility] 10/2022
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
BORIS w/ CPAP
GERD
H/o bowel obstruction
Hypothyroidism
Past Medical History
Past Medical History: Other (in HPI)
Past Surgical History: Cardiac (PVI and Atach ablation 12/10/20), Gynecological (vaginal hysterectomy) and Orthopedic
Social History
Tobacco: Former Smoker
Alcohol: Other (1-2 drinks four or more times a week, sometimes more than 4 drinks a day)
Drug: None
Personal:
Living: With Family
Family History
Family History: Cancer
Allergies / Home Medications
Allergy/AdvReac Type Severity Reaction Status Date / Time
vancomycin Allergy Itching, Verified 03/16/24 14:51
Lip
swelling,
Erythema
�Medication �Instructions �Recorded �Confirmed �Type
ascorbic acid (vitamin C) 500 mg 500 mg PO DAILY Supplement 12/01/12 03/16/24 History
tablet (Vitamin C)
levothyroxine 125 mcg tablet 125 mcg PO DAILY@0400 Thyroid 12/01/12 03/16/24 History
cholecalciferol (vitamin D3) 50 2,000 unit PO DAILY Supplement 12/02/12 03/16/24 History
mcg (2,000 unit) tablet
calcium carbonate 600 mg PO DAILY Supplement 12/10/20 03/16/24 History
vitamin E 670 mg (1,000 unit) 1,000 unit PO DAILY Supplement 12/10/20 03/16/24 History
capsule
atorvastatin 10 mg tablet (Lipitor) 10 mg PO DAILY High cholesterol 07/23/22 03/16/24 History
omeprazole 20 mg tablet,delayed 20 mg PO DAILY gerd 07/23/22 03/16/24 History
release
apixaban 5 mg tablet (Eliquis) 5 mg PO BID Blood Clot 01/06/23 03/16/24 History
Prevention/Tx
cyanocobalamin (vitamin B-12) 500 500 mcg PO DAILY Supplement 01/06/23 03/16/24 History
mcg tablet
losartan 25 mg tablet 25 mg PO DAILY Blood Pressure 01/06/23 03/16/24 History
potassium chloride 10 mEq 20 meq PO DAILY Electrolyte 01/06/23 03/16/24 History
tablet,extended release Repletion
acetaminophen 500 mg tablet 1,000 mg PO Q6HPRN PRN mild pain 07/15/23 03/16/24 History
darbepoetin joseluis in polysorbat 200 200 mcg SC DAILYPRN PRN Hgb<11 07/15/23 03/16/24 History
mcg/0.4 mL in polysorbate
injection syringe (Aranesp)
doxycycline hyclate 100 mg tablet 100 mg PO BID 07/15/23 03/16/24 History
gabapentin 100 mg capsule 100 mg PO TID 07/15/23 03/16/24 History
albuterol sulfate 90 mcg/actuation 2 puff inhalation R Q6HPRN PRN sob 03/16/24 03/16/24 History
aerosol inhaler
furosemide 40 mg tablet 40 mg PO DAILY 03/16/24 03/16/24 History
metoprolol succinate 25 mg 12.5 mg PO DAILY 03/16/24 03/16/24 History
tablet,extended release 24 hr
polyethylene glycol 3350 17 gram 17 g PO DAILYPRN PRN constipation 03/16/24 03/16/24 History
oral powder packet (Miralax)
Review of Systems
-
History Source: Patient
All other systems: Negative unless noted
Physical Exam
Vital Signs
Temp Pulse Resp BP Pulse Ox
97.5 F 115 18 119/76 96
03/18/24 11:10 03/18/24 11:10 03/18/24 11:10 03/18/24 11:10 03/18/24 11:10
Lab Results
03/18/24 07:07
03/18/24 07:07
Impression / Plan
-
PCP: Nannette Louise PA-C
[facility]: Dr. Maria Del Rosario Cortes
EP: Dr. Jose Eduardo Cortes
Impression:
Presented w/ LLE pain, swelling
L knee abscess/cellulitis
Paroxysmal afib w/ RVR
Paroxysmal typical atrial flutter/atrial tachycardia
urgent CV in ER restoring SR with blocked PACs and PVCs 07/23/22
s/p PVI and Atach ablation 12/10/20
Prior amiodarone therapy d/c due to hyperpigmentation of legs and arms
Chronic Eliquis OAC
Chronic HFmrEF
NICM EF 40-45%
Chronic LBBB
Moderate to severe MR by TTE 07/23/22, but more mild to moderate by LYNETTE 08/22/22
Aortic sclerosis without stenosis
HTN
Hyperlipidemia
Chronic back pain s/p back surgery at [facility] 10/2022
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
BORIS w/ CPAP
GERD
H/o bowel obstruction
Hypothyroidism
Exercise mibi 06/06/19: Completed 6 minutes Josesito protocol for 107% MPHR and abnormal ECG with 1.[address] depression II, III, aVF that did not improve until 2 min into recovery, but there was normal perfusion imaging
Cardiac catheterization 08/22/2022:�Nonobstructive coronary artery disease with only minor luminal irregularity, Normal/near normal LVEDP measuring 15 mmHg
Echo 10/04/20: EF 52%, possible mild abnormal relaxation, mild MR
ECHO 07/23/22:�EF 40 to 45%, mild global hypokinesis, stage I diastolic dysfunction, severely dilated left atrium, moderate to severe central mitral regurgitation, mild to moderate AAS with peak/mean gradients 19/13 mmHg, HERMINIA 1.3 cm�, mild TR, PAP 45
to 50 mmHg
LYNETTE 08/22/2022:�EF 45%, mildly reduced systolic function.� Mild to moderate central MR.
Echo 01/07/23: EF 46%, stage II diastolic dysfunction, mod to sev MR, mild peak/mean 16/10 mmHg, mild to mod TR with PAP 62 mmHg
Echo 11/19/2023: EF 48%, mild cLVH, stage I diastolic dysfunction, mild MR, mild with peak/mean gradients 18/10 mmHg, mild AI
Plan:
-Presented for evaluation of L knee abscess/cellulitis. Continue abx per primary service. Planned for I&D today, 03/18.
-Cardiology consulted due to rapid atrial fibrillation.
-EKG reviewed, Afib w/ RVR, HR 111 bpm.
-On review of telemetry, HR has been ~100 bpm. Continue metoprolol succinate, however will increase dose to 25mg daily.
-Previously on amiodarone, stopped 12/2023 due to hyperpigmentation of arms and legs.
-Will focus on rate control for now. No plans for CV as AC on hold. Will reassess as OP.
-On Eliquis 5mg BID for anticoagulation, on hold currently for planned procedure today, 03/18. Resume as soon as safe post op.
-K 4.4, check TSH. Continue levothyroxine.
-Recent echo 11/2023 with EF 48%, mid MR, mild . No need to repeat at this time. Continue Toprol, losartan.
-Appears euvolemic. Weight stable. Continue PO lasix 40mg daily
-Continue lipitor 10mg daily.
HPI: Nicolette is an 84 year old female with PMH of chronic HFrEF, NICM, paroxysmal atrial fibrillation/flutter, LBBB, MR, HTN, HLD, BORIS, hypothyroidism, and GERD. She presented to [facility] for evaluation of LLE pain and swelling. She was seen by
orthopedics earlier in the day and had an area around her knee drained. There was concern for possible intra-articular spread and she was sent to ER for further workup and management. In ER, US negative for DVT. She was admitted with cellulitis/ L
knee abscess and was started on antibiotics. In ER she was noted to be in atrial fibrillation w/ RVR. She was continued on her usual medications and Eliquis was held in preparation for pes anserine debridement and irrigation 03/18. Cardiology
consulted for evaluation due to uncontrolled heart rates in atrial fibrillation.
Data Reviewed
-
EKG: Tracing Personally Visualized and interpreted
Labs: Labs Reviewed by me
Old Records: Reviewed
--- NOTE | 2024-03-18 13:22 | W.PN.ID1 ---
Date of Service
Date of Service: March 18, 2024
Today's Communication
Continue daptomycin.
Assessment / Plan
# Left knee soft tissue abscess, septic bursitis
# LLE cellulitis
# Possible septic PJI left knee based on MRI, clinically intact ROM, no effusion.
# Vancomycin allergy - lip swelling, rash
- Abscess fluid culture: S. aureus
- Continue daptomycin.
- To OR today.
Pls send deep cultures.
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
- I spoke to Dr. Lillian Kemp (ID at [facility]) - spinal fusion with hardware (10/2021) at [facility] with incidental finding of abscess, cx MSSA s/p 6 weeks IV cefazolin then on doxycycline suppression
- Hold doxycycline while on Daptomycin.
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
Spine fusion with hardware (10/2021) at [facility] with incidental finding of abscess, cx MSSA s/p 6 weeks IV cefazolin then on doxycycline suppression
Afib
CHF
HTN
HLD
Hypothyroidism
Depression
BORIS
Interstitial cystitis
Left knee TKR 2015
Right knee TKR
Arthroscopy right shoulder.
Tonsillectomy.
Appendectomy.
Tubal ligation
Chief Complaint
-: Cellulitis and Other
Subjective / Review of Systems
To OR today.
Vital Signs / Physical Exam
Vital Signs
Vital Signs
Temp Pulse Resp BP Pulse Ox
97.5 F 115 18 119/76 96
03/18/24 11:10 03/18/24 11:10 03/18/24 11:10 03/18/24 11:10 03/18/24 11:10
Objective Data
Lab Data
Lab Results
03/18/24 07:07
03/18/24 07:07
ESR Cancelled 03/16/24 18:42
Estimated Creat Clear 43 ml/min 03/18/24 07:07
Lactic Acid Cancelled 03/16/24 19:00
Total Bilirubin 0.3 mg/dl (0.2-1.3) 03/18/24 07:07
AST 23 U/L (14-36) 03/18/24 07:07
ALT 12 U/L (0-35) 03/18/24 07:07
Alkaline Phosphatase 69 U/L (38-126) 03/18/24 07:07
C-Reactive Protein Cancelled 03/16/24 18:42
Most recent labs reviewed.
Micro Results:
03/16/24 16:24 Wound Culture - Preliminary
Abscess Staphylococcus aureus
Gram Stain - Preliminary
03/16/24 16:24 Blood Culture - Preliminary
Blood/Venous No Growth in 24 hours- Final report to follow
03/16/24 16:24 Blood Culture - Preliminary
Blood/Venous No Growth in 24 hours- Final report to follow
03/16/24 Left knee XRAY: Left total knee arthroplasty in place without radiographic evidence for acute periprosthetic fracture or hardware loosening. Moderate-sized left knee joint effusion and moderate diffuse anterior soft tissue
swelling/subcutaneous edema (possibly secondary to infection).
03/17/24 MRI left knee: Status post total left knee arthroplasty. 4.6 cm diameter collection of fluid in the anteromedial proximal left leg in the region of the pes anserine tendon insertions. This appears to be extra-articular position. This could
represent abscess. Consider percutaneous aspiration for further evaluation. Moderate amount of fluid in the lateral gutter of the knee. There is considerable synovial thickening in this portion of the knee. Findings worrisome for represent septic
arthritis. Consider arthrocentesis for further evaluation
[2024-03-18 14:38] LABS: TSH Reflex To Free T4 1.95 uIU/ml (0.47-4.68)
[2024-03-18] MEDS: MORPHINE SULFATE 1 MG IV ×2 (15:58→16:09)
[2024-03-19 03:46] VITALS: BP 137/80
[2024-03-19] MEDS: SYNTHROID 125 MCG PO (04:56)
[2024-03-19 05:24] VITALS: BMI 29.3
[2024-03-19 07:00] VITALS: BP 121/72
[2024-03-19 07:53] LABS: % Basophils 0.1 % (0-2); % Immature Granulocytes 0.3 % (0-0.5); % Lymphocytes 10.9 % (20.5-51.1); % Neutrophils 82.7 % (42.2-75.2); Absolute Lymphocytes 0.7 10^3/uL (1.2-3.4); Absolute Monocytes 0.4 10^3/uL (0.1-0.6); Absolute Neutrophils 5.6 10^3/uL (1.4-6.5); Hematocrit 31.7 % (37.0-47.0); Hemoglobin 9.8 g/dL (12.0-16.0); Mean Corp Hgb Conc. 30.9 g/dL (33.0-37.0); Mean Corpuscular Hgb 28.3 pg (27.0-31.0); Mean Corpuscular Volume 91.6 fL (81.0-99.0); Mean Platelet Volume 9.4 fL (7.4-10.4); Nucleated Red Blood Cells % 0 %; Platelet Count 305 10^3/uL (130-400); Red Blood Cell Count 3.46 10^6/uL (4.20-5.40); Red Cell Dist. Width 17.1 % (11.5-14.5); White Blood Cell Count 6.7 10^3/uL (4.8-10.8)
[2024-03-19 08:31] LABS: ALT (SGPT) 12 U/L (0-35); AST (SGOT) 22 U/L (14-36); Albumin 2.8 g/dl (3.5-5.0); Alkaline Phosphatase 72 U/L (38-126); Blood Urea Nitrogen 24 mg/dl (7-17); Calcium 8.3 mg/dl (8.4-10.2); Carbon Dioxide 31 mmol/L (22-30); Chloride 104 mmol/L (98-107); Estimated Creatinine Clearance 48 ml/min; Glucose 121 mg/dl (70-99); Potassium 4.9 mmol/L (3.5-5.1); Sodium 140 mmol/L (135-145); Total Bilirubin 0.2 mg/dl (0.2-1.3); Total Protein 6.7 g/dl (6.3-8.2); eGFR > 60.00
[2024-03-19] MEDS: COZAAR 25 MG PO (09:29)
[2024-03-19] MEDS: PROTONIX 40 MG PO (09:30)
[2024-03-19] MEDS: LASIX 40 MG PO (09:30)
[2024-03-19] MEDS: LIPITOR 10 MG PO (09:30)
[2024-03-19] MEDS: NEURONTIN 100 MG PO ×3 (09:30→21:28)
[2024-03-19] MEDS: OSCAL CAL 500 1000 MG PO (09:30)
[2024-03-19] MEDS: TOPROL XL 25 MG PO ×2 (09:30→20:20)
[2024-03-19] MEDS: MAGNESIUM OXIDE 500 MG PO (09:31)
--- NOTE | 2024-03-19 09:40 | W.PN.CARDCBS ---
Today's Communication / Plan
-
Increase Toprol to 25 mg p.o. twice daily for atrial tachycardia with rapid rates at times which are asymptomatic
She does not want to consider cardioversion or other medications and might consider a second ablation but can be discussed as an outpatient
Stable cardiology status for discharge but may need to stay for IV antibiotics
Discussed with primary service
Impression / Plan
-
PCP: Nannette Louise PA-C
Garbage Stoker: Dr. Maria Del Rosario Cortes
EP: Dr. Jose Eduardo Cortes
Impression:
Presented w/ LLE pain, swelling
L knee abscess/cellulitis
Paroxysmal afib w/ RVR
Paroxysmal typical atrial flutter/atrial tachycardia
urgent CV in ER restoring SR with blocked PACs and PVCs 07/23/22
s/p PVI and Atach ablation 12/10/20
Prior amiodarone therapy d/c due to hyperpigmentation of legs and arms
Chronic Eliquis OAC
Chronic HFmrEF
NICM EF 40-45%
Chronic LBBB
Moderate to severe MR by TTE 07/23/22, but more mild to moderate by LYNETTE 08/22/22
Aortic sclerosis without stenosis
HTN
Hyperlipidemia
Chronic back pain s/p back surgery at [facility] 10/2022
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
BORIS w/ CPAP
GERD
H/o bowel obstruction
Hypothyroidism
Exercise mibi 06/06/19: Completed 6 minutes Josesito protocol for 107% MPHR and abnormal ECG with 1.[address] depression II, III, aVF that did not improve until 2 min into recovery, but there was normal perfusion imaging
Cardiac catheterization 08/22/2022:�Nonobstructive coronary artery disease with only minor luminal irregularity, Normal/near normal LVEDP measuring 15 mmHg
Echo 10/04/20: EF 52%, possible mild abnormal relaxation, mild MR
ECHO 07/23/22:�EF 40 to 45%, mild global hypokinesis, stage I diastolic dysfunction, severely dilated left atrium, moderate to severe central mitral regurgitation, mild to moderate AAS with peak/mean gradients 19/13 mmHg, HERMINIA 1.3 cm�, mild TR, PAP 45
to 50 mmHg
LYNETTE 08/22/2022:�EF 45%, mildly reduced systolic function.� Mild to moderate central MR.
Echo 01/07/23: EF 46%, stage II diastolic dysfunction, mod to sev MR, mild peak/mean 16/10 mmHg, mild to mod TR with PAP 62 mmHg
Echo 11/19/2023: EF 48%, mild cLVH, stage I diastolic dysfunction, mild MR, mild with peak/mean gradients 18/10 mmHg, mild AI
Plan:
She feels much better after drainage procedure on left knee
Heart rate control in atrial tachycardia at times is fast but remains asymptomatic
She does not want to consider cardioversion or other medications and might consider a second ablation but can be discussed as an outpatient
Will increase Toprol to 25 mg p.o. twice daily
Patient wants to go home and stable cardiology status for discharge but may need to stay for IV antibiotic
Discussed with primary service
HPI: Nicolette is an 84 year old female with PMH of chronic HFrEF, NICM, paroxysmal atrial fibrillation/flutter, LBBB, MR, HTN, HLD, BORIS, hypothyroidism, and GERD. She presented to [facility] for evaluation of LLE pain and swelling. She was seen by
orthopedics earlier in the day and had an area around her knee drained. There was concern for possible intra-articular spread and she was sent to ER for further workup and management. In ER, US negative for DVT. She was admitted with cellulitis/ L
knee abscess and was started on antibiotics. In ER she was noted to be in atrial fibrillation w/ RVR. She was continued on her usual medications and Eliquis was held in preparation for pes anserine debridement and irrigation 03/18. Cardiology
consulted for evaluation due to uncontrolled heart rates in atrial fibrillation.
Progress Note - Garbage Stoker
Subjective
Date of Service: March 19, 2024
No complaints
Objective
Labs:
03/19/24 07:01
03/19/24 07:01
Labs
Hgb 9.8 g/dL (12.0-16.0) L 03/19/24 07:01
Hct 31.7 % (37.0-47.0) L 03/19/24 07:01
Plt Count 305 10^3/uL (130-400) 03/19/24 07:01
Sodium 140 mmol/L (135-145) 03/19/24 07:01
Potassium 4.9 mmol/L (3.5-5.1) 03/19/24 07:01
BUN 24 mg/dl (7-17) H 03/19/24 07:01
Creatinine 0.9 mg/dL (0.6-1.0) 03/19/24 07:01
Glucose 121 mg/dl (70-99) H 03/19/24 07:01
Vital Signs and I&O:
Vital Signs
Temp Pulse Resp BP Pulse Ox
97.7 F 96 18 121/72 98
03/19/24 07:00 03/19/24 07:00 03/19/24 07:00 03/19/24 07:00 03/19/24 07:00
Vital Signs
Temp Pulse Resp BP Pulse Ox
97.7 F 96 18 121/72 98
03/19/24 07:00 03/19/24 07:00 03/19/24 07:00 03/19/24 07:00 03/19/24 07:00
Intake & Output
03/17/24 03/18/24 03/19/24 03/20/24
06:59 06:59 06:59 06:59
Intake Total 240 / 240 480 / 480 1350 / 1350
Balance 240 / 240 480 / 480 1350 / 1350
Physical Exam
Physical Exam
General: Well developed, well nourished in NAD.
Neck: Supple, no JVD, HJR, carotids +2 B/L, no bruits bilaterally.
Heart: Non displaced PMI, irregular, no murmurs, No S3, S4, no rubs.
Lungs: Clear to auscultation bilaterally, no wheeze, rhonchi, rubs bilaterally,
normal expiratory phase.
Extremities: No clubbing, cyanosis or edema bilaterally.
Neuro: Grossly nonfocal, awake, alert and oriented x3.
[2024-03-19 11:00] VITALS: BP 125/70
--- NOTE | 2024-03-19 11:39 | W.PN.ID1 ---
Date of Service
Date of Service: March 19, 2024
Today's Communication
- Continue daptomycin.
- At time if discharge, will transition to po abx.
Assessment / Plan
# Left knee soft tissue abscess, septic bursitis
# LLE cellulitis
# Vancomycin allergy - lip swelling, rash
- 03/18/24 s/p I+D of bursa, NO joint infection per Ortho Dr. Hamlin
- OR cx pending
- Outpt abscess fluid culture: S. aureus
- Continue daptomycin.
- At time if discharge, will transition to po abx.
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
- I spoke to Dr. Lillian Kemp (ID at [facility]) - spinal fusion with hardware (10/2021) at [facility] with incidental finding of abscess, cx MSSA s/p 6 weeks IV cefazolin then on doxycycline suppression
- Hold doxycycline while on Daptomycin.
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
Spine fusion with hardware (10/2021) at [facility] with incidental finding of abscess, cx MSSA s/p 6 weeks IV cefazolin then on doxycycline suppression
Afib
CHF
HTN
HLD
Hypothyroidism
Depression
BORIS
Interstitial cystitis
Left knee TKR 2016
Right knee TKR
Arthroscopy right shoulder.
Tonsillectomy.
Appendectomy.
Tubal ligation
Chief Complaint
-: Cellulitis and Other
Subjective / Review of Systems
feels well
Vital Signs / Physical Exam
Vital Signs
Vital Signs
Temp Pulse Resp BP Pulse Ox
97.7 F 96 18 121/72 98
03/19/24 07:00 03/19/24 07:00 03/19/24 07:00 03/19/24 07:00 03/19/24 07:00
Physical Exam
Constitutional: No Acute Distress and Comfortable
Musculoskeletal: Other (Left leg darion-wrap in place)
Objective Data
Lab Data
Lab Results
03/19/24 07:01
03/19/24 07:01
ESR Cancelled 03/16/24 18:42
Estimated Creat Clear 48 ml/min 03/19/24 07:01
Lactic Acid Cancelled 03/16/24 19:00
Total Bilirubin 0.2 mg/dl (0.2-1.3) 03/19/24 07:01
AST 22 U/L (14-36) 03/19/24 07:01
ALT 12 U/L (0-35) 03/19/24 07:01
Alkaline Phosphatase 72 U/L (38-126) 03/19/24 07:01
C-Reactive Protein Cancelled 03/16/24 18:42
Most recent labs reviewed.
Micro Results:
03/16/24 16:24 Wound Culture - Preliminary
Abscess Staphylococcus aureus
Gram Stain - Preliminary
03/18/24 15:05 Wound Culture - Pending
Bursa Gram Stain - Preliminary
03/16/24 16:24 Blood Culture - Preliminary
Blood/Venous No Growth in 48 hours- Final report to follow
03/16/24 16:24 Blood Culture - Preliminary
Blood/Venous No Growth in 48 hours- Final report to follow
03/18/24 15:05 Anaerobic Culture - Pending
Bursa
03/16/24 Left knee XRAY: Left total knee arthroplasty in place without radiographic evidence for acute periprosthetic fracture or hardware loosening. Moderate-sized left knee joint effusion and moderate diffuse anterior soft tissue
swelling/subcutaneous edema (possibly secondary to infection).
03/17/24 MRI left knee: Status post total left knee arthroplasty. 4.6 cm diameter collection of fluid in the anteromedial proximal left leg in the region of the pes anserine tendon insertions. This appears to be extra-articular position. This could
represent abscess. Consider percutaneous aspiration for further evaluation. Moderate amount of fluid in the lateral gutter of the knee. There is considerable synovial thickening in this portion of the knee. Findings worrisome for represent septic
arthritis. Consider arthrocentesis for further evaluation
--- NOTE | 2024-03-19 12:04 | W.PN.HOSP.TC ---
Today's Communication/Plan
-
cont Abx pending Cx result
Assessment / Plan
Assessment / Plan
84yo F with PMHx of HTN, HFpEF, hypothyroidism, neuropathy, HLD, a.fib on eliquis, Hx of spinal Sx with recent fall and hardware dislodgement found 2 mo ago (already followed with her NeuroSx) b/l TKA came with L knee sweeling, redness and
infrapatellar collection worsening for past 2 weeks to the point that patient could not use her leg. Was seen by ortho and sent to ED. US found abscess that was aspirated. Plan for further I&D by ortho as MRI showed abscess and with concern for
septic joint, however less likely as per ortho due to dry tap.
A/P:
#L knee abscess, cellulitis, concern for arthritis (less likely)
Dapro as per ID, eventual oral Abx when Cx results
abscess Cx S.aureus
Follow Bcx
MRI knee: fluid collection and synovial thickening,m however dry tap as per ortho. Septic bursitis suspected
Ortho consult: s/p I&D on 03/18/24 - periOP Cx pending
US le neg for DVT
#HLD
#Hypothyroidism
#Essential HTN
#Neuropathy
#chronic HFpEF
Cont home meds
#Anemia, chronic, MIGUEL
Outpatient f/u
Iron recommended
check FOBT if possible
#Afib, paroxysmal
poorly controlled
Cardiology follow up: increased BB, possible outpatient ablation
since tachy asymptomatic - patient would like to defer CV
Telemetry
cont Eliquis when able (stopped for I&D by ortho)
#Hypocalcemia
#Hypomagnesemia
replete and follow
DVT ppx on SCDs
FUll code
I have spent at least 38min reviewing chart, test results, communication with consultants and direct patient care
Anticipated Discharge: 24 - 48 hours
Subjective/Interval History
-
Date of Service: March 19, 2024
Objective Data
-
Labs:
Laboratory Results
03/19/24
07:01
WBC 6.7
Hgb 9.8 L
Hct 31.7 L
Plt Count 305
Sodium 140
Potassium 4.9
Chloride 104
Carbon Dioxide 31 H
BUN 24 H
Creatinine 0.9
Glucose 121 H
Calcium 8.3 L
Total Bilirubin 0.2
AST 22
ALT 12
Alkaline Phosphatase 72
Vital Signs:
Vital Signs
Temp Pulse Resp BP Pulse Ox
97.9 F 98 16 125/70 98
03/19/24 11:00 03/19/24 11:00 03/19/24 11:00 03/19/24 11:00 03/19/24 11:00
I&O
03/18/24 03/19/24 03/20/24
06:59 06:59 06:59
Intake Total 480 / 480 1350 / 1350
Balance 480 / 480 1350 / 1350
Review of Systems
-
History Source: Patient
All other systems: Reviewed and negative
Physical Exam
-
General: Well Nourished
HEENT: Normocephalic
Cardiac: Regular Rhythm
GI: Soft, Nontender and Nondistended
Neuro: Awake, Alert, Oriented and AO x 3
Psych: Calm
[2024-03-19] MEDS: CUBICIN 10 MG IV (12:25)
--- NOTE | 2024-03-19 13:11 | W.PN.ORTHO ---
Today's Communication / Plan
-
Postop day #1 status post left knee I&D of pes anserine bursa.
-PT/OT as tolerated. May continue with activities to tolerance.
-Appreciate infectious disease involvement for antibiotic recommendations. Currently on IV daptomycin with eventual transition to p.o. antibiotics.
-Intraoperative cultures currently with no growth, but preoperative cultures with Staph aureus.
-Will continue to follow along with cultures to determine appropriate antibiotics and discharge home.
-Aquacel dressing to remain in place. Sutures will remain in place for 3 to 4 weeks.
-Would like to see her back 7 to 10 days postop for wound check.
Assessment
.
Distal Motor Intact: Yes
Dressing:
Clean, dry and intact.
Assessment:
Postop day #1 status post left knee I&D of pes anserine bursa.
-PT/OT as tolerated. May continue with activities to tolerance.
-Appreciate infectious disease involvement for antibiotic recommendations. Currently on IV daptomycin with eventual transition to p.o. antibiotics.
-Intraoperative cultures currently with no growth, but preoperative cultures with Staph aureus.
-Will continue to follow along with cultures to determine appropriate antibiotics and discharge home.
-Aquacel dressing to remain in place. Sutures will remain in place for 3 to 4 weeks.
-Would like to see her back 7 to 10 days postop for wound check.
Plan
.
Surgery / Date: 03/18/24 Left knee I&D pes anserine bursa
Activity:
Out of bed.
PT/OT
Discharge Plan: Home
Subjective
.
.:
Patient resting comfortably. She denies any pain in her left knee and reports she has been able to ambulate and move the knee without any discomfort
Vital Signs and Labs
.
Vital Signs and Labs:
Lab Results
03/19/24 07:01
03/19/24 07:01
Temp Pulse Resp BP Pulse Ox
97.9 F 98 16 125/70 98
03/19/24 11:00 03/19/24 11:00 03/19/24 11:00 03/19/24 11:00 03/19/24 11:00
Physical Exam
-
Left knee: Geovanny wrap in place over left lower extremity. Aquacel dressing in place on top of incision is clean, dry, and intact. Mild sanguinous drainage noted. Minimal swelling. No erythema. Gentle range of motion without any discomfort.
[2024-03-19 15:00] VITALS: BP 100/62
[2024-03-19 19:51] VITALS: BP 103/56
[2024-03-19 20:30] VITALS: BMI 29.3
[2024-03-19] MEDS: SENOKOT-S 1 TABLET PO (21:32)
[2024-03-19 23:27] VITALS: BP 112/63
[2024-03-20] MEDS: SYNTHROID 125 MCG PO (03:00)
[2024-03-20 03:41] VITALS: BP 134/76
[2024-03-20 05:43] VITALS: BMI 29.5
[2024-03-20 08:00] VITALS: BP 121/64
[2024-03-20] MEDS: MIRALAX 17 GRAMS PO (09:11)
[2024-03-20] MEDS: OSCAL CAL 500 1000 MG PO (09:12)
[2024-03-20] MEDS: MAGNESIUM OXIDE 500 MG PO (09:12)
[2024-03-20] MEDS: PROTONIX 40 MG PO (09:12)
[2024-03-20] MEDS: NEURONTIN 100 MG PO (09:13)
[2024-03-20] MEDS: LIPITOR 10 MG PO (09:14)
[2024-03-20] MEDS: COZAAR 25 MG PO (09:14)
[2024-03-20] MEDS: TOPROL XL 25 MG PO (09:15)
[2024-03-20] MEDS: LASIX 40 MG PO (09:15)
--- NOTE | 2024-03-20 09:56 | W.PN.CARDCBS ---
Today's Communication / Plan
-
Remains in rate controlled atrial tachycardia on Toprol
Stable cardiology status for discharge
Sign off, call with questions
Impression / Plan
-
PCP: Nannette Louise PA-C
Per Diem: Dr. Maria Del Rosario Cortes
EP: Dr. Jose Eduardo Cortes
Impression:
Presented w/ LLE pain, swelling
L knee abscess/cellulitis
Atrial tachycardia
Paroxysmal typical atrial flutter/atrial tachycardia
urgent CV in ER restoring SR with blocked PACs and PVCs 07/23/22
s/p PVI and Atach ablation 12/10/20
Prior amiodarone therapy d/c due to hyperpigmentation of legs and arms
Chronic Eliquis OAC
Chronic HFmrEF
NICM EF 40-45%
Chronic LBBB
Moderate to severe MR by TTE 07/23/22, but more mild to moderate by LYNETTE 08/22/22
Aortic sclerosis without stenosis
HTN
Hyperlipidemia
Chronic back pain s/p back surgery at [facility] 10/2022
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
BORIS w/ CPAP
GERD
H/o bowel obstruction
Hypothyroidism
Exercise mibi 06/06/19: Completed 6 minutes Josesito protocol for 107% MPHR and abnormal ECG with 1.[address] depression II, III, aVF that did not improve until 2 min into recovery, but there was normal perfusion imaging
Cardiac catheterization 08/22/2022:�Nonobstructive coronary artery disease with only minor luminal irregularity, Normal/near normal LVEDP measuring 15 mmHg
Echo 10/04/20: EF 52%, possible mild abnormal relaxation, mild MR
ECHO 07/23/22:�EF 40 to 45%, mild global hypokinesis, stage I diastolic dysfunction, severely dilated left atrium, moderate to severe central mitral regurgitation, mild to moderate AAS with peak/mean gradients 19/13 mmHg, HERMINIA 1.3 cm�, mild TR, PAP 45
to 50 mmHg
LYNETTE 08/22/2022:�EF 45%, mildly reduced systolic function.� Mild to moderate central MR.
Echo 01/07/23: EF 46%, stage II diastolic dysfunction, mod to sev MR, mild peak/mean 16/10 mmHg, mild to mod TR with PAP 62 mmHg
Echo 11/19/2023: EF 48%, mild cLVH, stage I diastolic dysfunction, mild MR, mild with peak/mean gradients 18/10 mmHg, mild AI
Plan:
Heart rate control much better on higher doses of Toprol
Continue Eliquis
She declined cardioversion
Could consider redo ablation as an outpatient versus rate control and anticoagulation
HPI: Nicolette is an 84 year old female with PMH of chronic HFrEF, NICM, paroxysmal atrial fibrillation/flutter, LBBB, MR, HTN, HLD, BORIS, hypothyroidism, and GERD. She presented to [facility] for evaluation of LLE pain and swelling. She was seen by
orthopedics earlier in the day and had an area around her knee drained. There was concern for possible intra-articular spread and she was sent to ER for further workup and management. In ER, US negative for DVT. She was admitted with cellulitis/ L
knee abscess and was started on antibiotics. In ER she was noted to be in atrial fibrillation w/ RVR. She was continued on her usual medications and Eliquis was held in preparation for pes anserine debridement and irrigation 03/18. Cardiology
consulted for evaluation due to uncontrolled heart rates in atrial fibrillation.
Progress Note - Per Diem
Subjective
Date of Service: March 20, 2024
No complaints
Objective
Labs:
03/19/24 07:01
03/19/24 07:01
Labs
Hgb 9.8 g/dL (12.0-16.0) L 03/19/24 07:01
Hct 31.7 % (37.0-47.0) L 03/19/24 07:01
Plt Count 305 10^3/uL (130-400) 03/19/24 07:01
Sodium 140 mmol/L (135-145) 03/19/24 07:01
Potassium 4.9 mmol/L (3.5-5.1) 03/19/24 07:01
BUN 24 mg/dl (7-17) H 03/19/24 07:01
Creatinine 0.9 mg/dL (0.6-1.0) 03/19/24 07:01
Glucose 121 mg/dl (70-99) H 03/19/24 07:01
Vital Signs and I&O:
Vital Signs
Temp Pulse Resp BP Pulse Ox
97.6 F 73 17 121/64 98
03/20/24 08:00 03/20/24 08:00 03/20/24 08:00 03/20/24 08:00 03/20/24 08:00
Vital Signs
Temp Pulse Resp BP Pulse Ox
97.6 F 73 17 121/64 98
03/20/24 08:00 03/20/24 08:00 03/20/24 08:00 03/20/24 08:00 03/20/24 08:00
Intake & Output
03/18/24 03/19/24 03/20/24 03/21/24
06:59 06:59 06:59 06:59
Intake Total 480 / 480 1350 / 1350 1620 / 1620
Balance 480 / 480 1350 / 1350 1620 / 1620
Physical Exam
Physical Exam
General: Well developed, well nourished in NAD.
Neck: Supple, no JVD, HJR, carotids +2 B/L, no bruits bilaterally.
Heart: Non displaced PMI, irregular, no murmurs, No S3, S4, no rubs.
Lungs: Clear to auscultation bilaterally, no wheeze, rhonchi, rubs bilaterally,
normal expiratory phase.
Extremities: Left leg dressings noted
Neuro: Grossly nonfocal, awake, alert and oriented x3.
--- NOTE | 2024-03-20 10:55 | W.PN.HOSP.TC ---
Today's Communication/Plan
-
restart Eliquis
pending final ID recommendations
Assessment / Plan
Assessment / Plan
84yo F with PMHx of HTN, HFpEF, hypothyroidism, neuropathy, HLD, a.fib on eliquis, Hx of spinal Sx with recent fall and hardware dislodgement found 2 mo ago (already followed with her NeuroSx) b/l TKA came with L knee sweeling, redness and
infrapatellar collection worsening for past 2 weeks to the point that patient could not use her leg. Was seen by ortho and sent to ED. US found abscess that was aspirated. Plan for further I&D by ortho as MRI showed abscess and with concern for
septic joint, however less likely as per ortho due to dry tap. Abscess Cx grew MSSA.
A/P:
#L knee abscess, cellulitis, concern for arthritis (less likely)
Dapro as per ID, eventual oral Abx when Cx results
abscess Cx - MSSA
Bcx NTD
MRI knee: fluid collection and synovial thickening,m however dry tap as per ortho. Septic bursitis suspected
Ortho consult: s/p I&D on 03/18/24 - periOP Cx pending
US le neg for DVT
#HLD
#Hypothyroidism
#Essential HTN
#Neuropathy
#chronic HFpEF
Cont home meds
#Anemia, chronic, MIGUEL
Outpatient f/u
Iron recommended
check FOBT if possible
#Afib, paroxysmal
poorly controlled
Cardiology follow up: increased BB, possible outpatient ablation
since tachy asymptomatic - patient would like to defer CV
Telemetry
cont Eliquis
#Hypocalcemia
#Hypomagnesemia
replete and follow
DVT ppx on Eliquis
FUll code
I have spent at least 38min reviewing chart, test results, communication with consultants and direct patient care
Anticipated Discharge: Within 24 hours
Subjective/Interval History
-
Date of Service: March 20, 2024
Objective Data
-
Vital Signs:
Vital Signs
Temp Pulse Resp BP Pulse Ox
97.6 F 73 17 121/64 98
03/20/24 08:00 03/20/24 08:00 03/20/24 08:00 03/20/24 08:00 03/20/24 08:00
I&O
03/19/24 03/20/24 03/21/24
06:59 06:59 06:59
Intake Total 1350 / 1350 1620 / 1620
Balance 1350 / 1350 1620 / 1620
Review of Systems
-
History Source: Patient
All other systems: Reviewed and negative
Physical Exam
-
HEENT: Normocephalic, Atraumatic and Moist Mucous Membranes
Neuro: Awake, Alert, Oriented and AO x 3
Psych: Calm
[2024-03-20 11:06] VITALS: BP 112/52
--- NOTE | 2024-03-20 11:09 | W.PN.ORTHO ---
Today's Communication / Plan
-
Postop day #2 status post left knee I&D of pes anserine bursa.
-PT/OT as tolerated. May continue with activities to tolerance.
-Appreciate infectious disease involvement for antibiotic recommendations. Currently on IV daptomycin with eventual transition to p.o. antibiotics.
-Intraoperative cultures currently with no growth, but preoperative cultures with Staph aureus - methicillin sensitive.
-Will continue to follow along with cultures to determine appropriate antibiotics and discharge home.
-Aquacel dressing to remain in place. Dressing changed today. Sutures will remain in place for 3 to 4 weeks.
-Would like to see her back 7 to 10 days postop for wound check.
Assessment
.
Distal Motor Intact: Yes
Dressing:
Clean, dry and intact.
Assessment:
Postop day #2 status post left knee I&D of pes anserine bursa.
-PT/OT as tolerated. May continue with activities to tolerance.
-Appreciate infectious disease involvement for antibiotic recommendations. Currently on IV daptomycin with eventual transition to p.o. antibiotics.
-Intraoperative cultures currently with no growth, but preoperative cultures with Staph aureus - methicillin sensitive.
-Will continue to follow along with cultures to determine appropriate antibiotics and discharge home.
-Aquacel dressing to remain in place. Dressing changed today. Sutures will remain in place for 3 to 4 weeks.
-Would like to see her back 7 to 10 days postop for wound check.
Plan
.
Surgery / Date: 03/18/24 Left knee I&D pes anserine bursa
Activity:
Out of bed.
PT/OT
Discharge Plan: Home
Subjective
.
.:
Patient resting comfortably.
More discomfort today than yesterday, but still able to be more active than pre-op
Vital Signs and Labs
.
Vital Signs and Labs:
Lab Results
03/19/24 07:01
03/19/24 07:01
Temp Pulse Resp BP Pulse Ox
97.9 F 70 17 112/52 98
03/20/24 11:06 03/20/24 11:06 03/20/24 11:06 03/20/24 11:06 03/20/24 11:06
Physical Exam
-
Left knee: aquacel dressing in place with stable saturation. Dressing is peeling away and no longer water proof. New dressing to be applied. Diffuse swelling of LLE with discoloration. Calf soft and non tender to palpation. n/v intact.
--- NOTE | 2024-03-20 11:25 | W.PN.ID1 ---
Date of Service
Date of Service: March 20, 2024
Today's Communication
Transition daptomycin to cephalexin 1000mg po qq8 through 04/01/24
Resume chronic doxycycline on 04/02/24.
Follow-up with me in 2 weeks.
Assessment / Plan
# Left knee MSSA soft tissue abscess, septic bursitis
# LLE cellulitis improving
# Vancomycin allergy - lip swelling, rash
- 03/18/24 s/p I+D of bursa, NO joint infection per Ortho Dr. Hamlin
- OR cx negative to date (on abx)
- Outpt abscess fluid culture: MSSA (interestingly sensitive to doxycycline, pt on chronic suppression)
- Source controlled with I+D
- Transition daptomycin to cephalexin 1000mg po qq8 through
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
- I spoke to Dr. Lillian Kemp (ID at [facility]) - spinal fusion with hardware (10/2021) at [facility] with incidental finding of abscess, cx MSSA s/p 6 weeks IV cefazolin then on doxycycline suppression
- Hold doxycycline while on cephalexin.
-Can resume doxycycline 04/02.
# Conditions [employer]
Spine fusion with hardware (10/2021) at [facility] with incidental finding of abscess, cx MSSA s/p 6 weeks IV cefazolin then on doxycycline suppression
Afib
CHF
HTN
HLD
Hypothyroidism
Depression
BORIS
Interstitial cystitis
Left knee TKR 2015
Right knee TKR
Arthroscopy right shoulder.
Tonsillectomy.
Appendectomy.
Tubal ligation
Chief Complaint
-: Cellulitis and Other
Subjective / Review of Systems
no complaints
Vital Signs / Physical Exam
Vital Signs
Vital Signs
Temp Pulse Resp BP Pulse Ox
97.9 F 70 17 112/52 98
03/20/24 11:06 03/20/24 11:06 03/20/24 11:06 03/20/24 11:06 03/20/24 11:06
Physical Exam
Constitutional: No Acute Distress and Comfortable
Pulmonary: Clear
Gastrointestinal: Soft, Non Tender and Non Distended
Neurological: AO x 3
Objective Data
Lab Data
Lab Results
03/19/24 07:01
03/19/24 07:01
ESR Cancelled 03/16/24 18:42
Estimated Creat Clear 48 ml/min 03/19/24 07:01
Lactic Acid Cancelled 03/16/24 19:00
Total Bilirubin 0.2 mg/dl (0.2-1.3) 03/19/24 07:01
AST 22 U/L (14-36) 03/19/24 07:01
ALT 12 U/L (0-35) 03/19/24 07:01
Alkaline Phosphatase 72 U/L (38-126) 03/19/24 07:01
C-Reactive Protein Cancelled 03/16/24 18:42
Most recent labs reviewed.
Micro Results:
03/16/24 16:24 Wound Culture - Final
Abscess S aureus-Methicillin Sensitive
Gram Stain - Final
03/16/24 16:24 Blood Culture - Preliminary
Blood/Venous No Growth in 72 hours- Final report to follow
03/16/24 16:24 Blood Culture - Preliminary
Blood/Venous No Growth in 72 hours- Final report to follow
03/18/24 15:05 Anaerobic Culture - Preliminary
Bursa Culture pending. Anaerobic cultures are examined after 3
days incubation. Additional information to follow.
03/18/24 15:05 Wound Culture - Preliminary
Bursa No growth
Gram Stain - Preliminary
03/16/24 Left knee XRAY: Left total knee arthroplasty in place without radiographic evidence for acute periprosthetic fracture or hardware loosening. Moderate-sized left knee joint effusion and moderate diffuse anterior soft tissue
swelling/subcutaneous edema (possibly secondary to infection).
03/17/24 MRI left knee: Status post total left knee arthroplasty. 4.6 cm diameter collection of fluid in the anteromedial proximal left leg in the region of the pes anserine tendon insertions. This appears to be extra-articular position. This could
represent abscess. Consider percutaneous aspiration for further evaluation. Moderate amount of fluid in the lateral gutter of the knee. There is considerable synovial thickening in this portion of the knee. Findings worrisome for represent septic
arthritis. Consider arthrocentesis for further evaluation
Care Review
Plan reviewed with: Physician (Dr. Kamara)
--- NOTE | 2024-03-20 11:50 | W.DCSUMMARY ---
Discharge Summary
Discharge Data
Date of Admission: 03/16/24
Date of Discharge: 03/20/24
-
Pending Results: Yes
Additional Pending Results:
Surgical cultures
Hospital Course
84yo F with PMHx of HTN, HFpEF, hypothyroidism, neuropathy, HLD, a.fib on eliquis, Hx of spinal Sx with recent fall and hardware dislodgement found 2 mo ago (already followed with her NeuroSx), spinal abscess on chronic Doxy, b/l TKA came with L
knee swelling, redness and infrapatellar collection worsening for past 2 weeks to the point that patient could not use her leg. Was seen by ortho and sent to ED. US found abscess that was aspirated. Plan for further I&D by ortho as MRI showed
abscess and with concern for septic joint, however less likely as per ortho due to dry tap. Abscess Cx grew MSSA - ID recommended 13 days of Keflex 1g TID, then restart chronic doxy
I have spent at least 38min reviewing chart, test results, communication with consultants and direct patient care
Patient was managed for:
#L knee abscess, cellulitis, concern for arthritis (less likely)
#HLD
#Hypothyroidism
#Essential HTN
#Neuropathy
#chronic HFpEF
#Anemia, chronic, MIGUEL
#Afib, paroxysmal
#Hypocalcemia
#Hypomagnesemia
Discharge Plan
-
Patient Disposition: Home (Routine Discharge)
Discharge Diagnosis/Procedures: L knee bursitis
Diet: Low Cholesterol
Activity: As tolerated
Driving Restrictions: As prior to admission
Activity Restrictions/Additional Instructions:
Transition daptomycin to cephalexin 1000mg po qq8 through 04/01/24
Resume chronic doxycycline on 04/02/24.
Referrals:
Erich Hamlin MD [Active] - in less than 1 week
Nannette Louise PA-C [Family Provider] - in less than 1 week (Iron deficiency workup, might need repeated EGD/Colonoscopy)
Marty Cortes MD [Active] - 03/29/24 12:40 pm (You have a follow up visit with Dr. Jose Eduardo Cortes at the [place] office. Please call with questions. )
Sushila Bueno MD [Active] - in two weeks
Prescriptions:
New
cephalexin 500 mg capsule
1,000 mg PO Q8H 13 Days Qty: 78 0RF
ferrous sulfate 325 mg (65 mg iron) tablet
325 mg PO DAILY Qty: 30 0RF
sennosides-docusate sodium 8.6-50 mg tablet
1 tab-cap PO HS Qty: 30 0RF
Continued
levothyroxine 125 MCG tablet
125 mcg PO DAILY@0400
cholecalciferol (vitamin D3) 2,000 UNIT tablet
2,000 unit PO DAILY
calcium carbonate 600 MG tablet
600 mg PO DAILY
atorvastatin [Lipitor] 10 mg Tablet
10 mg PO DAILY
omeprazole 20 mg Tablet,Delayed Release (Dr/Ec)
20 mg PO DAILY
potassium chloride 10 mEq Tablet Extended Release
20 meq PO DAILY
cyanocobalamin (vitamin B-12) 500 mcg Tablet
500 mcg PO DAILY
losartan 25 mg tablet
25 mg PO DAILY
Eliquis 5 MG tablet
5 mg PO BID
acetaminophen 500 mg Tablet
1,000 mg PO Q6HPRN PRN (Reason: mild pain)
gabapentin 100 mg Capsule
100 mg PO TID
Aranesp (in polysorbate) 200 mcg/0.4 mL Syringe
200 mcg SC DAILYPRN PRN (Reason: Hgb<11)
furosemide 40 mg Tablet
40 mg PO DAILY
polyethylene glycol 3350 [Miralax] 17 gram Powder In Packet
17 g PO DAILYPRN PRN (Reason: constipation)
metoprolol succinate 25 mg Tablet Extended Release 24 Hr
12.5 mg PO DAILY
albuterol sulfate 90 mcg/actuation Hfa Aerosol Inhaler
2 puff INHALATION R Q6HPRN PRN (Reason: sob)
Held
doxycycline hyclate 100 mg Tablet
100 mg PO BID
Hold Instructions: Resume on 04/02/24. Restart after completion of cefalexin
Discontinued
ascorbic acid (vitamin C) [Vitamin C] 500 MG tablet
500 mg PO DAILY
vitamin E 1,000 UNIT capsule
1,000 unit PO DAILY
Discharge Orders:
Discharge Patient (As Directed); Ordered 03/20/24
Ordered By: Cisco Kamara
Discharge Date and Time
Print Language: ARGENTINE
[2024-03-20] MEDS: ELIQUIS 5 MG PO (12:08)
[2024-03-20] MEDS: CUBICIN 10 MG IV (12:09)
[2024-03-20] MEDS: FLUAD (65 yr+) 2024-2025 FORMULA 0.5 ML IM (12:15)
--- NOTE | 2024-03-20 12:26 | CM ---
Patient is for discharge to home today, no needs.
Plan; Home no needs.
== END 2024-03-20 14:06 | disposition home or self-care (01) | DRG 501 ==
LOC: 4 WEST ACU 19:23
PROVIDERS: Emergency Medicine; Orthopaedic Surgery; ADMITTING PHYSICIAN Internal Medicine; ATTENDING PHYSICIAN Internal Medicine; CONSULT PHYSICIAN Internal Medicine Cardiovascular Disease; CONSULT PHYSICIAN Internal Medicine Infectious Disease; EMERGENCY PHYSICIAN Student in an Organized Health Care Education/Training Program; FAMILY PHYSICIAN Physician Assistant Medical
PROC: 5A09357 Assistance with Respiratory Ventilation, Less than 24 Consecutive Hours, Continuous Positive Airway Pressure (ICD-10-PCS; 2024-03-16)
PROC: 0J9P0ZZ Drainage of Left Lower Leg Subcutaneous Tissue and Fascia, Open Approach (ICD-10-PCS; 2024-03-18)
PROC: 0MBP0ZZ Excision of Left Knee Bursa and Ligament, Open Approach (ICD-10-PCS; 2024-03-18)
PROC: 3E02340 Introduction of Influenza Vaccine into Muscle, Percutaneous Approach (ICD-10-PCS; 2024-03-20)
DX: M71.162 Other infective bursitis, left knee (principal); I42.8 Other cardiomyopathies; L02.416 Cutaneous abscess of left lower limb; I50.42 Chronic combined systolic (congestive) and diastolic (congestive) heart failure; I47.19 Other supraventricular tachycardia; I48.3 Typical atrial flutter; L03.116 Cellulitis of left lower limb; I48.0 Paroxysmal atrial fibrillation; E03.9 Hypothyroidism, unspecified; E11.40 Type 2 diabetes mellitus with diabetic neuropathy, unspecified; I11.0 Hypertensive heart disease with heart failure; E78.00 Pure hypercholesterolemia, unspecified; D64.9 Anemia, unspecified; M25.462 Effusion, left knee; E83.51 Hypocalcemia; E83.42 Hypomagnesemia; F32.A Depression, unspecified; G47.33 Obstructive sleep apnea (adult) (pediatric); N30.10 Interstitial cystitis (chronic) without hematuria; I44.7 Left bundle-branch block, unspecified; K21.9 Gastro-esophageal reflux disease without esophagitis; I70.0 Atherosclerosis of aorta; G89.29 Other chronic pain; I34.0 Nonrheumatic mitral (valve) insufficiency; B95.61 Methicillin susceptible Staphylococcus aureus infection as the cause of diseases classified elsewhere; Z96.653 Presence of artificial knee joint, bilateral; Z88.1 Allergy status to other antibiotic agents; Z98.1 Arthrodesis status; Z90.710 Acquired absence of both cervix and uterus; Z86.61 Personal history of infections of the central nervous system; Z79.890 Hormone replacement therapy; Z87.891 Personal history of nicotine dependence; Z98.51 Tubal ligation status; Z79.01 Long term (current) use of anticoagulants; Z79.2 Long term (current) use of antibiotics; Z23 Encounter for immunization; Z87.19 Personal history of other diseases of the digestive system
CPT/HCPCS: 73564; 73721; 80048; 80053; 82550; 82607; 82728; 82746; 83540; 83550; 83605; 83615; 83735; 84443; 85025; 85027; 85045; 85652; 86140; 87040; 87070; 87075; 87147; 87186; 87205; 90662; 93005; 93971; 99285; G0008; J0878

== ENCOUNTER → 2024-04-14 13:49 | Outpatient (REF) | payer MEDICARE, BC, SELFPAY | LOC: CLAB 13:49 | PROVIDERS: ATTENDING PHYSICIAN Internal Medicine Infectious Disease | DX: M71.162 Other infective bursitis, left knee (principal) | CPT/HCPCS: 87070; 87205 ==

== ENCOUNTER 2024-04-18 08:53 | Inpatient (IN) | payer MEDICARE, BC, SELFPAY ==
[2024-04-18 10:02] VITALS: BP 105/55
--- NOTE | 2024-04-18 10:16 | CON.ID ---
Consultation
-
Date/Time Consultation Requested: April 18, 2024 0950
Date/Time Consultation Performed: April 18, 2024 1020
Requesting Provider: ANAID Willoughby
Performing Provider: Dr. Sushila Bueno
Reason for Consultation: Septic knee bursitis
Chief Complaint / Past History
Chief Complaint
Admitted for Tikosyn infusion
History of Present Illness
84-year-old female with history of atrial fibrillation, hypothyroidism, history of MSSA discitis s/p spinal fusion with hardware on chronic doxycycline since 2022, history of left total knee replacement 2015 who was recently hospitalized from
03/16/24 to 03/20/24 with left knee prepatellar bursitis s/p I+D 03/18/24, no joint involvement seen in OR.� OR cx +MSSA (pansensitive). She received daptomycin in the hospital then dc'd on� cephalexin through 04/01/24 then resume suppressive
doxycycline 100mg daily.� She had follow-up with me in the office last week. Moderate amount of serous drainage noted on the gauze. There was soft induration medial to the sutures. (Of note, I did swab the drainage for culture which was probably
false negative as the collection swab had . I recommended trial of 6 weeks of IV cefazolin. If drainage persists on IV abx, she may need eventual prosthetic left knee revision. Since patient scheduled for admission today for Tikosyn, plan was
to set up PICC IV abx during hospitalization. Today, the nurse changed the dressing and purulence noted. She cleaned the area. Pt c/o soreness of the knee. Still able to ambulate.
Past History
Additional Past Medical History:
Afib
CHF
HTN
HLD
Hypothyroidism
Depression
BORIS
Interstitial cystitis
MSSA (pansensitive) bacteremia 10/01/22 ([facility])
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
MSSA left knee bursitis s/p I+D 03/18/24
Left knee TKR 2015
Right knee TKR
Arthroscopy right shoulder.
Tonsillectomy.
Appendectomy.
Tubal ligation.
Allergy History:
vancomycin Allergy (Verified 03/16/24 14:51)
Itching, Lip swelling, Erythema
Medications Reviewed: Yes
Current Antibiotics:
Clindamycin 900mg IV q8h
Doxycycline (chronic)
Social History
Tobacco: Non-Smoker
Alcohol: None
Drug: None
Personal:
Living: With Family
Family History
Family History: Not Pertinent
Review of Systems
Review of Systems
General: Negative Fever, Chills or Change in Appetite
HEENT: Negative Lymphadenopathy, Sinus Problems or Headache
Cardiovascular: Negative Chest Pain or Edema
Respiratory: Negative Dyspnea or Cough
Gasteroenterology: Negative Nausea, Vomiting or Diarrhea
Genital / Urological: Negative Dysuria or Flank Pain
Endocrine: Negative Weakness
Neurological: Negative Dizziness
All systems: All other systems were reviewed and were negative
Vital Signs
T= 98.8, P 80, BP 105/55,
Physical Exam
Physical Exam
Constitutional: No Acute Distress and Comfortable
Eyes: No Conjunctival Hemorrhage and Sclera Anicteric
Cardiovascular: Irregular Rate and S1/S2
Pulmonary: Clear
Gastrointestinal: Soft, Non Tender and Normal Bowel Sounds
Genito-Urinary: Negative CVA Tenderness
Musculoskeletal: Other (left knee: mild induration, no erythema/warmth, ROM intact)
Wound: Other (LLE below knee sutures in place, laterally increase in size of fluctuant collection)
Neurological: Awake and AO x 3
Assessment / Plan
#Relapsed Left knee MSSA septic bursitis
- Recent 03/18/24 s/p I+D of bursa, NO left knee prosthetic joint involvement as per Ortho Dr. Hamlin. OR cx MSSA (interestingly sensitive to doxycycline, pt on chronic suppression), Completed�cephalexin 1000mg po qq8 through , now on
suppressive doxycyline for hx MSSA spine discititis with hardware in place.
- There appears to be an abscess in surgical site. Suspect she may have developed sinus tract to bone. There is also small possibility of left knee PJI.
- Consult Orthopedic to drain abscess. Please send culture.
- Plan to treat with 6 weeks of IV cefazolin 2g IV q8 through 05/30/24.
- Ordered PICC.
#Conditions [employer]
Afib
CHF
HTN
HLD
Hypothyroidism
Depression
BORIS
Interstitial cystitis
MSSA (pansensitive) bacteremia 10/01/22 ([facility])
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
MSSA left knee bursitis s/p I+D 03/18/24
Left knee TKR 2015
Right knee TKR
Arthroscopy right shoulder.
Tonsillectomy.
Appendectomy.
Tubal ligation.
Care Review
Plan reviewed with: Other Provider (ANAID Holland)
[2024-04-18 10:23] VITALS: BMI 28.7
--- NOTE | 2024-04-18 10:35 | CON.HOSP ---
Consultation
-
Date/Time Consultation Requested: 04/18/24
Date/Time Consultation Performed: 04/18/24
Requesting Provider: Carmita More PA-C
Performing Provider: Dr. Louis Akers
Reason for Consultation: Concern for Septic Arthritis
Family Physician
-
Family Physician: Nannette Louise
Chief Complaint
-
Knee area infection
History of Present Illness
84 year old female with past medical history of chronic HFmrEF, NICM EF 40-45%, paroxysmal atrial fibrillation (s/p PVI and Atach ablation 12/10/20), paroxysmal typical atrial flutter status post cardioversion, aortic sclerosis without stenosis,
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
patient was hospitalized in [facility] in March 2024 for left knee abscess and cellulitis and underwent anserine debridement and irrigation 03/18/2024. During that admission, cardiology was consulted for evaluation due to uncontrolled
heart rates in atrial fibrillation and patient was rate controlled with increase in outpatient Toprol dose to 25 mg twice daily. She was seen by infectious disease last week and there were concerns for persistent serous drainage from the prepatellar
bursa with concern for development of sinus tract to the bone. A 6-week course of IV cefazolin was advised, patient was being admitted for Tikon and it was decided to also place a PICC line to set up for IV antibiotics while inpatient.
At the time patient was seen, she denied any complaints, no chest pain, fever or any other new symptoms.
Medical History
Past Medical History
Past Medical History: Reports Other (As per HPI above)
Past Surgical History: Reports Cardiac (PVI and Atach ablation 12/10/20), Gynocological (Vaginal hysterectomy) and Orthopedic
Social History
Tobacco: Former Smoker
Alcohol: Occasional
Drug: None
Family History
Family History: Cancer
Allergies / Home Medications
Allergies reflects when Allergies were last updated in [facility].
Home Medications with original date entered in [facility]
Allergy/Medication List:
Allergies
Allergy/AdvReac Type Severity Reaction Status Date / Time
vancomycin Allergy Itching, Verified 03/16/24 14:51
Lip
swelling,
Erythema
Home Medications
levothyroxine 125 mcg tablet 125 mcg PO DAILY@0400 Thyroid 12/01/12
cholecalciferol (vitamin D3) 50 mcg (2,000 unit) tablet 2,000 unit PO DAILY Supplement 12/02/12
calcium carbonate 600 mg PO DAILY Supplement 12/10/20
atorvastatin 10 mg tablet (Lipitor) 10 mg PO DAILY High cholesterol 07/23/22
omeprazole 20 mg tablet,delayed release 20 mg PO DAILY gerd 07/23/22
apixaban 5 mg tablet (Eliquis) 5 mg PO BID Blood Clot Prevention/Tx 01/06/23
cyanocobalamin (vitamin B-12) 500 mcg tablet 500 mcg PO DAILY Supplement 01/06/23
losartan 25 mg tablet 25 mg PO DAILY Blood Pressure 01/06/23
potassium chloride 10 mEq tablet,extended release 20 meq PO DAILY Electrolyte Repletion 01/06/23
acetaminophen 500 mg tablet 1,000 mg PO Q6HPRN PRN mild pain 07/15/23
darbepoetin joseluis in polysorbat 200 mcg/0.4 mL in polysorbate injection syringe (Aranesp) 200 mcg SC DAILYPRN PRN Hgb<11 07/15/23
doxycycline hyclate 100 mg tablet 100 mg PO BID 07/15/23
gabapentin 100 mg capsule 100 mg PO TID 07/15/23
albuterol sulfate 90 mcg/actuation aerosol inhaler 2 puff inhalation R Q6HPRN PRN sob 03/16/24
furosemide 40 mg tablet 40 mg PO DAILY 03/16/24
polyethylene glycol 3350 17 gram oral powder packet (Miralax) 17 g PO DAILYPRN PRN constipation 03/16/24
cephalexin 500 mg capsule 1,000 mg (2 x 500 mg) PO Q8H 13 days #78 caps 03/20/24
ferrous sulfate 325 mg (65 mg iron) tablet 325 mg PO DAILY #30 tabs 03/20/24
metoprolol succinate 25 mg tablet,extended release 24 hr 25 mg PO BID #60 tabs 03/20/24
sennosides 8.6 mg-docusate sodium 50 mg tablet 1 tab-cap PO HS #30 tabs 03/20/24
Review of Systems
-
A 12 point Review of Systems was completed except as noted: Yes
Physical Exam
Vital Signs
Vital Signs
Temp Pulse Resp BP Pulse Ox
98.8 F 80 20 105/55 96
04/18/24 10:00 04/18/24 10:15 04/18/24 10:00 04/18/24 10:02 04/18/24 10:00
Physical Exam
General: No Apparent Distress
HEENT: Normocephalic
Respiratory: Clear
Cardiac: S1/S2 and Irregular Rhythm
GI: Soft, Non Tender and Normal Bowel Sounds
Musculoskeletal: No Cyanosis
Skin: Warm and Dry
Neuro: Awake, Alert and AO x 3
Psych: Calm and Intact Judgement
Impression / Plan
-
Assessment/Plan
Relapsed Left knee MSSA septic bursitis
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
Left knee prepatellar bursitis status post I&D 03/18/2024 no joint involvement seen in OR
-Antibiotics as per ID: plan to treat with 6 weeks of IV cefazolin 2g IV q8 through 05/30/24.
-Ortho consulted by cardiology, drained some fluid from abscess
Chronic HFmrEF
NICM EF 40-45%
-Continue Losartan, Toprol and Lasix
Paroxysmal atrial fibrillation (s/p PVI and Atach ablation 12/10/20)
Paroxysmal typical atrial flutter status post cardioversion
-Given hyperpigmentation of legs and arms, prior amiodarone therapy stopped
-Continues Eliquis anticoagulation
-Continue Toprol 25 mg twice daily
-Eventual initiation of dofetilide once ID evaluated wound and plan for treatment determined (will need to wait for wound cultures to see whether alternative antibiotics that could be contraindicated with Tikosyn and/or surgery requiring hold of
anticoagulation is not needed).
Aortic sclerosis without stenosis
Chronic LBBB
MR
Hypertension
Hyperlipidemia
BORIS
Hypothyroidism
GERD
Chronic back pain status post back surgery
DVT Prophylaxis: Eliquis
Code Status: Full Code
--- NOTE | 2024-04-18 11:00 | PTCARENOTE ---
Pt admitted as a direct admit this AM for Tikosyn loading; Pt AAOx3 w/no CP or SOB. Pt does c/o 'mild, 3/10 L knee pain'. Upon examination & during pt's admission assessment, pt found to have a chronic L knee wound that she's been seeing ID & Ortho
for since Mar 2024. Pt explained that she is supposed to be getting a PICC line after this D/C to start on 6 wks of IV ABX. The L knee wound found to be draining clear, orange serous fluid from near healing sutures & then another small open area was
draining yellowish-green purulent drainage. This RN spoke w/cardiology & rec'd orders for WOC, ID, & Ortho consults for the pt. L knee wound cleaned, measured & redressed by this RN. Pt's VS stable w/HR in the 80's & BP 105/55 on admission. RUE
single lumen PICC line placed by VAT. Awaiting CXR for PICC placement confirmation. Pt w/call pakrer within reach & plan of care ongoing.
[2024-04-18 11:28] VITALS: BMI 28.7
[2024-04-18 12:11] VITALS: BP 126/84
[2024-04-18 12:11] LABS: Hematocrit 33.7 % (37.0-47.0); Hemoglobin 10.4 g/dL (12.0-16.0); Mean Corp Hgb Conc. 30.9 g/dL (33.0-37.0); Mean Corpuscular Hgb 27.9 pg (27.0-31.0); Mean Corpuscular Volume 90.3 fL (81.0-99.0); Mean Platelet Volume 9.1 fL (7.4-10.4); Platelet Count 243 10^3/uL (130-400); Red Blood Cell Count 3.73 10^6/uL (4.20-5.40); White Blood Cell Count 6.3 10^3/uL (4.8-10.8)
[2024-04-18 12:35] LABS: ALT (SGPT) 13 U/L (0-35); AST (SGOT) 23 U/L (14-36); Albumin 3.3 g/dl (3.5-5.0); Alkaline Phosphatase 75 U/L (38-126); Blood Urea Nitrogen 30 mg/dl (7-17); Calcium 8.4 mg/dl (8.4-10.2); Carbon Dioxide 32 mmol/L (22-30); Chloride 102 mmol/L (98-107); Estimated Creatinine Clearance 44 ml/min; Glucose 94 mg/dl (70-99); Magnesium 1.9 mg/dl (1.6-2.3); Sodium 140 mmol/L (135-145); Total Bilirubin 0.5 mg/dl (0.2-1.3)
[2024-04-18] MEDS: LIPITOR PO (13:04)
[2024-04-18] MEDS: HIPREX PO (13:05)
[2024-04-18] MEDS: NEURONTIN PO ×3 (13:05→22:25)
[2024-04-18] MEDS: ELIQUIS PO (13:05)
[2024-04-18] MEDS: MIRALAX PO ×2 (13:05→20:00)
--- NOTE | 2024-04-18 13:12 | CON.CAR ---
Addendum entered and electronically signed by Maria Del Rosario Cortes MD 04/18/24 13:50:
I saw and examined the patient.
The Seismograph Recorder's note was reviewed and I agree with the note.
Comment: She was initially brought in for elective dofetilide load. She however has a left knee MSSA soft tissue abscess with septic bursitis. On initial assessment it appeared worse than previously described. Infectious disease was consulted and
agreed that this is worse. Dofetilide load is on hold right now pending assessment by ID, orthopedics and hospitalist service. Appreciate hospitalist service becoming primary service on this patient. Dofetilide loading is on hold at this point.
Continue oral anticoagulation. Continue to follow rhythm. Defer current care to services as noted above. Continue to follow telemetry.
Exam is stable without change. No evidence of heart failure on exam. Vital signs stable.
Original Note:
Consultation
Consultation Request
Date/Time Consultation Requested: 04/18/2024
Date/Time Consultation Performed: 04/18/2024, 11 AM
Performing Provider: ANAID Willoughby for Maria Del Rosario Cortes MD
Reason for Consultation: afib, initiation for Dofetilide
Medical History
-
Chief Complaint: afib
History of Present Illness:
HPI: Nicolette is an 84 year old female with PMH of chronic HFmrEF, NICM, paroxysmal atrial fibrillation/flutter, LBBB, MR, HTN, HLD, BORIS, hypothyroidism, GERD, left knee MSSA soft tissue abscess with septic bursitis.
Her atrial fibrillation had been managed with amiodarone but she developed bluegray hyperpigmentation of her bilateral lower and upper extremities and the medication was stopped on 01/30/2024. She has developed paroxysmal atrial fibrillation since
coming off amiodarone. An echocardiogram 11/19/2023 showed mildly reduced left ventricular systolic function with a EF of 48% and moderately enlarged left atrium with mild MR and mild aortic stenosis. It was decided to initiate dofetilide after 2
months amiodarone washout. Of note she was hospitalized at March 2024 for left knee abscess and cellulitis and underwent anserine debridement and irrigation 03/18/2024. Cardiology consulted during that admission for evaluation due to
uncontrolled heart rates in atrial fibrillation and patient was rate controlled with increase in outpatient Toprol dose to 25 mg twice daily.
She was seen by ID last week and there were concerns for persistent serous drainage from the prepatellar bursa with concern for development of sinus tract to the bone. A 6-week course of IV cefazolin was advised. Since she was being admitted for
Tikosyn it was decided to also place a PICC line to set up for IV antibiotics while inpatient.
PMH:
Paroxysmal atrial fibrillation
-s/p PVI and Atach ablation 12/10/20
-Developed blue-garibay hyper pigmentation on amiodarone, medication stopped 01/30/2024
-Chronic Eliquis OAC
Chronic HFmrEF
NICM EF 40-45%
Paroxysmal typical atrial flutter 07/23/22
urgent CV in ER restoring SR with blocked PACs and PVCs 07/23/22
Chronic LBBB
Moderate to severe MR by TTE 07/23/22, but more mild to moderate by LYNETTE 08/22/22
Aortic sclerosis without stenosis
HTN
Hyperlipidemia
Chronic back pain s/p back surgery at [facility] 10/2022
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
Left knee prepatellar bursitis status post I&D 03/18/2024 no joint involvement seen in OR
BORIS w/ CPAP
GERD
H/o bowel obstruction
Hypothyroidism
Past Medical History
Past Medical History: Other (in HPI)
Past Surgical History: Cardiac (PVI and Atach ablation 12/10/20), Gynecological (vaginal hysterectomy) and Orthopedic
Social History
Tobacco: Former Smoker
Alcohol: Other (1-2 drinks four or more times a week, sometimes more than 4 drinks a day)
Drug: None
Personal:
Living: With Family
Family History
Family History: Cancer
Allergies / Home Medications
Allergy/AdvReac Type Severity Reaction Status Date / Time
vancomycin Allergy Itching, Verified 03/16/24 14:51
Lip
swelling,
Erythema
�Medication �Instructions �Recorded �Confirmed �Type
levothyroxine 125 mcg tablet 125 mcg PO DAILY@0400 Thyroid 12/01/12 03/16/24 History
cholecalciferol (vitamin D3) 50 2,000 unit PO DAILY Supplement 12/02/12 03/16/24 History
mcg (2,000 unit) tablet
calcium carbonate 600 mg PO DAILY Supplement 12/10/20 03/16/24 History
atorvastatin 10 mg tablet (Lipitor) 10 mg PO DAILY High cholesterol 07/23/22 03/16/24 History
omeprazole 20 mg tablet,delayed 20 mg PO DAILY gerd 07/23/22 03/16/24 History
release
apixaban 5 mg tablet (Eliquis) 5 mg PO BID Blood Clot 01/06/23 03/16/24 History
Prevention/Tx
cyanocobalamin (vitamin B-12) 500 500 mcg PO DAILY Supplement 01/06/23 03/16/24 History
mcg tablet
losartan 25 mg tablet 25 mg PO DAILY Blood Pressure 01/06/23 03/16/24 History
potassium chloride 10 mEq 20 meq PO DAILY Electrolyte 01/06/23 03/16/24 History
tablet,extended release Repletion
acetaminophen 500 mg tablet 1,000 mg PO Q6HPRN PRN mild pain 07/15/23 03/16/24 History
darbepoetin joseluis in polysorbat 200 200 mcg SC DAILYPRN PRN Hgb<11 07/15/23 03/16/24 History
mcg/0.4 mL in polysorbate
injection syringe (Aranesp)
doxycycline hyclate 100 mg tablet 100 mg PO BID 07/15/23 03/16/24 History
gabapentin 100 mg capsule 100 mg PO TID 07/15/23 03/16/24 History
albuterol sulfate 90 mcg/actuation 2 puff inhalation R Q6HPRN PRN sob 03/16/24 03/16/24 History
aerosol inhaler
furosemide 40 mg tablet 40 mg PO DAILY 03/16/24 03/16/24 History
polyethylene glycol 3350 17 gram 17 g PO DAILYPRN PRN constipation 03/16/24 03/16/24 History
oral powder packet (Miralax)
cephalexin 500 mg capsule 1,000 mg (2 x 500 mg) PO Q8H 13 03/20/24 Rx
days #78 caps
ferrous sulfate 325 mg (65 mg 325 mg PO DAILY #30 tabs 03/20/24 Rx
iron) tablet
metoprolol succinate 25 mg 25 mg PO BID #60 tabs 03/20/24 Rx
tablet,extended release 24 hr
sennosides 8.6 mg-docusate sodium 1 tab-cap PO HS #30 tabs 03/20/24 Rx
50 mg tablet
Review of Systems
-
History Source: Patient
All other systems: Negative unless noted
Physical Exam
Vital Signs
Temp Pulse Resp BP Pulse Ox
98.8 F 80 20 105/55 96
04/18/24 10:00 04/18/24 10:15 04/18/24 10:00 04/18/24 10:02 04/18/24 10:00
GEN: No distress, awake, Ox3
HEENT: supple, anicteric, mmm
LUNGS: CTA, no wheezes/rales
CV: Irregular irregular, no murmur
ABD: soft, BS+, NT/ND
EXT: Bluegray hyperpigmentation bilateral lower extremities and upper extremities. Left knee with dressing covering wound
NEURO: Gross non-focal
Lab Results
04/18/24 11:59
04/18/24 11:59
Impression / Plan
-
PCP: Nannette Louise PA-C
Security System Engineer: Dr. Maria Del Rosario Cortes
EP: Dr. Jose Eduardo Cortes
Impression/plan:
Paroxysmal atrial fibrillation
-Prior amiodarone therapy d/c due to hyperpigmentation of legs and arms
-Continues oral anticoagulation with Eliquis
-Rate control with Toprol 25 mg twice daily
-Eventual initiation of dofetilide once ID/Ortho have evaluated wound and plan for treatment determined
-QTc monitoring with initiation of dofetilide
-EKG: Atrial fibrillation: QT 446 ms, QTc 508 ms
Left knee MSSA soft tissue abscess with septic bursitis, concern for worsening infection upon presentation
-ID consult
-Ortho consult
Paroxysmal typical atrial flutter/atrial tachycardia
urgent CV in ER restoring SR with blocked PACs and PVCs 07/23/22
s/p PVI and Atach ablation 12/10/20
Chronic HFmrEF
-Continue outpatient meds: Losartan, Toprol, Lasix
NICM EF 40-45%
Chronic LBBB
Moderate to severe MR by TTE 07/23/22, but more mild to moderate by LYNETTE 08/22/22
Aortic sclerosis without stenosis
HTN
Hyperlipidemia
Chronic back pain s/p back surgery at [facility] 10/2022
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
BORIS w/ CPAP
GERD
H/o bowel obstruction
Hypothyroidism
Exercise mibi 06/06/19: Completed 6 minutes Josesito protocol for 107% MPHR and abnormal ECG with 1.[address] depression II, III, aVF that did not improve until 2 min into recovery, but there was normal perfusion imaging
Cardiac catheterization 08/22/2022:�Nonobstructive coronary artery disease with only minor luminal irregularity, Normal/near normal LVEDP measuring 15 mmHg
Echo 10/04/20: EF 52%, possible mild abnormal relaxation, mild MR
ECHO 07/23/22:�EF 40 to 45%, mild global hypokinesis, stage I diastolic dysfunction, severely dilated left atrium, moderate to severe central mitral regurgitation, mild to moderate AAS with peak/mean gradients 19/13 mmHg, HERMINIA 1.3 cm�, mild TR, PAP 45
to 50 mmHg
LYNETTE 08/22/2022:�EF 45%, mildly reduced systolic function.� Mild to moderate central MR.
Echo 01/07/23: EF 46%, stage II diastolic dysfunction, mod to sev MR, mild peak/mean 16/10 mmHg, mild to mod TR with PAP 62 mmHg
Echo 11/19/2023: EF 48%, mild cLVH, stage I diastolic dysfunction, mild MR, mild with peak/mean gradients 18/10 mmHg, mild AI
Nicolette is an 84 year old female with PMH of chronic HFmrEF, NICM, paroxysmal atrial fibrillation/flutter, LBBB, MR, HTN, HLD, BORIS, hypothyroidism, GERD, left knee MSSA soft tissue abscess with septic bursitis.
Her atrial fibrillation had been managed with amiodarone but she developed bluegray hyperpigmentation of her bilateral lower and upper extremities and the medication was stopped on 01/30/2024. She has developed paroxysmal atrial fibrillation since
coming off amiodarone. An echocardiogram 11/19/2023 showed mildly reduced left ventricular systolic function with a EF of 48% and moderately enlarged left atrium with mild MR and mild aortic stenosis. It was decided to initiate dofetilide after 2
months amiodarone washout. Of note she was hospitalized at March 2024 for left knee abscess and cellulitis and underwent anserine debridement and irrigation 03/18/2024. Cardiology consulted during that admission for evaluation due to
uncontrolled heart rates in atrial fibrillation and patient was rate controlled with increase in outpatient Toprol dose to 25 mg twice daily.
She was seen by ID last week and there were concerns for persistent serous drainage from the prepatellar bursa with concern for development of sinus tract to the bone. A 6-week course of IV cefazolin was advised. Since she was being admitted for
Tikosyn it was decided to also place a PICC line to set up for IV antibiotics while inpatient.
--- NOTE | 2024-04-18 13:52 | W.PN.UPDATE ---
Update Note
Progress Note Update
Mrs. Castillo is an 84 year old female known to our practice s/p I&D left knee pes anserine bursa with Dr. Hamlin on 03/18/24. She was placed on oral antibiotics on discharge and has resumed her suppressive doxycycline. She was seen by Dr. Hamlin
and myself last Thursday and noted to have persistent serous drainage, but the incision itself was healing nicely. Attempted aspiration of the pes anserine bursa at that time did not yield anything other than scant bloody drainage. She was seen
by Dr. Bueno the following day and it was determined they would proceed with IV antibiotics x 6 weeks upon her regularly scheduled admission to initiate Tikosyn for a-fib.
On exam today, there is increased swelling about the incision, moreso than noted on 04/13/24, with associated fluctuance. Purulent material is easily expressed just distal to the remaining sutures. No surrounding erythema spreading beyond the
surgical incision. No joint effusion. Good ROM knee without pain. No swelling of lower extremity.
Under sterile technique, I attempted to aspirate fluid from the bursal region. No material was aspirated through the needle, but through palpation, gross purulent material was easily expressed. This was swabbed and sent to the lab to run gram
stain, culture and sensitivity. No material was able to be sent for cell count. A new dressing was applied. Wound care nursing has been consulted to help with wound care recommendations going forward. She may continue with activities to
tolerance. Appreciate Dr. Bueno's recommendations for IV antibiotics. PICC line has been placed in patient. She is currently admitted for Tikosyn monitoring, so we will continue to follow cultures during this admission. Will order updated x-rays
to be completed today.
[2024-04-18 14:56] VITALS: BP 101/63
[2024-04-18] MEDS: LASIX PO (15:26)
[2024-04-18] MEDS: COZAAR PO (15:26)
[2024-04-18] MEDS: PROTONIX PO (15:27)
[2024-04-18] MEDS: TOPROL XL PO (15:27)
[2024-04-18] MEDS: VITAMIN E PO (15:29)
[2024-04-18] MEDS: VITAMIN B-12 PO (15:29)
[2024-04-18] MEDS: VITAMIN D3 (cholecalciferol) PO (15:29)
[2024-04-18] MEDS: VITAMIN C PO (15:29)
[2024-04-18] MEDS: ANCEF 10 IV ×2 (15:32→22:30)
[2024-04-18] MEDS: KCL 20 MEQ PO (15:32)
--- NOTE | 2024-04-18 16:19 | WOUNDNOTE ---
WO RN NOTE: Reviewed chart and met with patient. ARAVIND Ortiz had recently palpated left knee wound for culture. The wound was draining a small amount of serosanguineous drainage and was swollen. Wound was clean and local wound care completed
with assistance of BENOIT Carcamo. Patient will continue to follow up with ortho and ID as planned. Will confirm orders and update care plan and discharge information. Will continue to follow as needed.
--- NOTE | 2024-04-18 17:31 | W.PN.UPDATE ---
Update Note
Progress Note Update
- Plan to hold on starting Tikosyn load at this time due to current ID issues. Wait for wound cultures to come back to make sure alternative antibiotics that could be contraindicated with Tikosyn and/or surgery requiring hold of anticoagulation is
not needed. Continue Toprol 25 mg bid and Eliquis. Case discussed with Dr Jose Eduardo Cortes.
--- NOTE | 2024-04-18 18:05 | CM ---
spoke to pt in room, she is pre vindep, lives with her husb in a 2 story home with a first floor set up. and 3 steps to enter. she ldenies any dc planning needs. she has a cane she uses. plan is for dc to home when medically stable.
[2024-04-18 18:19] VITALS: BP 128/72
[2024-04-18 19:56] VITALS: BP 119/62
[2024-04-18] MEDS: TOPROL XL 25 MG PO (20:00)
[2024-04-18] MEDS: HIPREX 1 GRAM PO (20:01)
[2024-04-18] MEDS: ELIQUIS 5 MG PO (20:01)
--- NOTE | 2024-04-18 20:40 | PTCARENOTE ---
received patient at the change of shift. AAOx3. denies any cp/palps/sob. Afib on tele 80s-90s. bp stable. reviewed plan of care and verbalized understanding. oob independently-steady. L knee dressing intact/dry. denies any knee pain. educated
patient to inform RN with any changes. patient wears own CPAP HS. call parker within reach.
[2024-04-18 22:33] VITALS: BP 104/74
[2024-04-19 03:47] VITALS: BP 134/81
--- NOTE | 2024-04-19 04:08 | PTCARENOTE ---
patient questioning plan of care-asking when she can start cardiac medications. patient states increased labored breathing this morning, on exertion. patient ambulated to the BR- appeared dyspneic. increased HR as well- 120s. at rest- HR 80s-90s. bp
134/81. once patient was back in bed- breathing normalized. educated patient to inform RN with any new changes.
L knee wound care completed per order. mild drainage from site-serosanguineous.
patient asking for sleeping pill to be added. added to plan of care on white board. patient states taking one at home.
[2024-04-19 05:05] LABS: Hematocrit 36.1 % (37.0-47.0); Hemoglobin 10.9 g/dL (12.0-16.0); Mean Corp Hgb Conc. 30.2 g/dL (33.0-37.0); Mean Corpuscular Hgb 28.2 pg (27.0-31.0); Mean Corpuscular Volume 93.3 fL (81.0-99.0); Mean Platelet Volume 9.3 fL (7.4-10.4); Platelet Count 271 10^3/uL (130-400); Red Blood Cell Count 3.87 10^6/uL (4.20-5.40); Red Cell Dist. Width 17.2 % (11.5-14.5); White Blood Cell Count 5.8 10^3/uL (4.8-10.8)
[2024-04-19 05:42] LABS: Blood Urea Nitrogen 30 mg/dl (7-17); Calcium 8.7 mg/dl (8.4-10.2); Carbon Dioxide 31 mmol/L (22-30); Chloride 102 mmol/L (98-107); Estimated Creatinine Clearance 44 ml/min; Glucose 100 mg/dl (70-99); Potassium 4.5 mmol/L (3.5-5.1); Sodium 141 mmol/L (135-145)
[2024-04-19] MEDS: ANCEF 10 IV ×3 (05:56→22:00)
[2024-04-19] MEDS: SYNTHROID 125 MCG PO (05:56)
[2024-04-19 06:00] VITALS: BMI 28.6
--- NOTE | 2024-04-19 06:45 | W.PN.UPDATE ---
Update Note
Progress Note Update
Patient seen and examined by Orthopedic surgery this AM. Resting comfortably in bedside chair. Wound culture currently pending; will continue to follow. Continue wound care treatment. Continue treatment per primary team and ID. Currently on
Cefazolin per ID. Orthopedic surgery will continue to follow.
--- NOTE | 2024-04-19 08:03 | PTCARENOTE ---
resumed care of patient from previous RN. AAOx3. Afib on tele 80s-90s at rest. 115+ while walking. VSS. independent with care. L knee dressing intact/dry. PRN neurontin/tylenol for knee pain. RA. PICC line intact for IV ABX. will continue to monitor.
[2024-04-19 08:13] VITALS: BP 121/70
[2024-04-19] MEDS: HIPREX 1 GRAM PO ×2 (08:34→19:49)
[2024-04-19] MEDS: VITAMIN B-12 500 MCG PO (08:35)
[2024-04-19] MEDS: VITAMIN C 500 MG PO (08:35)
[2024-04-19] MEDS: ELIQUIS 5 MG PO ×2 (08:36→19:49)
[2024-04-19] MEDS: LASIX 40 MG PO (08:36)
[2024-04-19] MEDS: VITAMIN D3 (cholecalciferol) 50 MCG PO (08:36)
[2024-04-19] MEDS: KCL 20 MEQ PO (08:36)
[2024-04-19] MEDS: VITAMIN E 800 UNITS PO (08:36)
[2024-04-19] MEDS: PROTONIX 20 MG PO (08:37)
[2024-04-19] MEDS: MIRALAX PO ×2 (08:38→19:49)
[2024-04-19] MEDS: NEURONTIN 100 MG PO (08:41)
[2024-04-19] MEDS: COZAAR 25 MG PO (08:42)
[2024-04-19] MEDS: TOPROL XL 25 MG PO ×3 (08:50→19:49)
--- NOTE | 2024-04-19 08:56 | W.PN.HOSP.TC ---
Today's Communication/Plan
-
Continue Ancef, follow cultures
Toprol increased for better rate control
Assessment / Plan
Assessment / Plan
Physical Exam
General: No Apparent Distress
HEENT: Normocephalic
Respiratory: Clear
Cardiac: S1/S2 and Irregular Rhythm
GI: Soft, Non Tender and Normal Bowel Sounds
Musculoskeletal: No Cyanosis. RLE covered in dressing/bandage.
Skin: Warm and Dry
Neuro: Awake, Alert and AO x 3
Psych: Calm and Intact Judgement
Assessment/Plan
Relapsed Left knee MSSA septic bursitis -- abscess in surgical site (from surgical procedure in March 2024)
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
Left knee prepatellar bursitis status post I&D 03/18/2024 no joint involvement seen in OR
-Antibiotics as per ID: plan to treat with 6 weeks of IV cefazolin 2g IV q8 through 05/30/24.
-Ortho consulted by cardiology, drained some fluid from abscess, follow cultures
Chronic HFmrEF
NICM EF 40-45%
-Continue Losartan and Lasix
-Toprol: Increase Toprol to 50 mg in am and 25 mg in evening and continue to uptitrate for rate control.
Paroxysmal atrial fibrillation (s/p PVI and Atach ablation 12/10/20)
Paroxysmal typical atrial flutter status post cardioversion
-Given hyperpigmentation of legs and arms, prior amiodarone therapy stopped
-Continues Eliquis anticoagulation
-Toprol: Increase Toprol to 50 mg in am and 25 mg in evening and continue to uptitrate for rate control
-Eventual initiation of dofetilide once ID evaluated wound and plan for treatment determined (will need to wait for wound cultures to see whether alternative antibiotics that could be contraindicated with Tikosyn and/or surgery requiring hold of
anticoagulation is not needed).
Aortic sclerosis without stenosis
Chronic LBBB
MR
Hypertension
Hyperlipidemia
BORIS
Hypothyroidism
GERD
Chronic back pain status post back surgery
DVT Prophylaxis: Eliquis
Code Status: Full Code
Anticipated Discharge: > 48 hours
Subjective/Interval History
-
Date of Service: April 19, 2024
Patient was seen and examined. She reported no new significant chest pain or shortness of breath.
Objective Data
-
Labs:
Laboratory Results
04/19/24
03:41
WBC 5.8
Hgb 10.9 L
Hct 36.1 L
Plt Count 271
Sodium 141
Potassium 4.5
Chloride 102
Carbon Dioxide 31 H
BUN 30 H
Creatinine 1.0
Glucose 100 H
Calcium 8.7
Vital Signs:
Vital Signs
Temp Pulse Resp BP Pulse Ox
97.8 F 89 18 121/70 98
04/19/24 08:11 04/19/24 08:42 04/19/24 08:11 04/19/24 08:42 04/19/24 08:11
I&O
04/18/24 04/19/24 04/20/24
06:59 06:59 06:59
Intake Total 960 / 960
Balance 960 / 960
--- NOTE | 2024-04-19 10:45 | W.PN.ID1 ---
Date of Service
Date of Service: April 19, 2024
Today's Communication
Continue cefazolin.
Assessment / Plan
#Relapsed Left knee MSSA septic bursitis
- Recent 03/18/24 s/p I+D of bursa, NO left knee prosthetic joint involvement as per Ortho Dr. Hamlin. OR cx MSSA (interestingly sensitive to doxycycline, pt on chronic suppression), Completed�cephalexin 1000mg po qq8 through , now on
suppressive doxycyline for hx MSSA spine discititis with hardware in place.
- There appears to be an abscess in surgical site. Suspect she may have developed sinus tract to bone. There is also small possibility of left knee PJI.
- Ortho expressed pus from site, cx pending
- Plan to treat with 6 weeks of IV cefazolin 2g IV q8 through 05/30/24.
- PICC in place.
- Infusion sheet submitted to strategic alliances manager on 04/18.
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
Afib
CHF
HTN
HLD
Hypothyroidism
Depression
BORIS
Interstitial cystitis
MSSA (pansensitive) bacteremia 10/01/22 ([facility])
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
MSSA left knee bursitis s/p I+D 03/18/24
Left knee TKR 2015
Right knee TKR
Arthroscopy right shoulder.
Tonsillectomy.
Appendectomy.
Tubal ligation.
Chief Complaint
-: Other (bursitis)
Subjective / Review of Systems
Feels SOB today especially with activity.
Vital Signs / Physical Exam
Vital Signs
Vital Signs
Temp Pulse Resp BP Pulse Ox
97.8 F 80 18 121/70 98
04/19/24 08:11 04/19/24 09:00 04/19/24 08:11 04/19/24 08:42 04/19/24 08:11
Physical Exam
Constitutional: Comfortable
Pulmonary: Clear; Negative Rales
Gastrointestinal: Soft, Non Tender, Non Distended and Normal Bowel Sounds
Wound: Other (Reviewed wound photos: Inferior right knee sutures were removed, + induration, erythema at site)
Objective Data
Lab Data
Lab Results
04/19/24 03:41
04/19/24 03:41
Estimated Creat Clear 44 ml/min 04/19/24 03:41
Total Bilirubin 0.5 mg/dl (0.2-1.3) 04/18/24 11:59
AST 23 U/L (14-36) 04/18/24 11:59
ALT 13 U/L (0-35) 04/18/24 11:59
Alkaline Phosphatase 75 U/L (38-126) 04/18/24 11:59
Most recent labs reviewed.
Micro Results:
04/18/24 14:29 Wound Culture - Preliminary
Knee - Left No growth
Gram Stain - Preliminary
04/18/24 14:29 Anaerobic Culture - Preliminary
Knee - Left Culture pending. Anaerobic cultures are examined after 3
days incubation. Additional information to follow.
[2024-04-19 11:44] VITALS: BP 130/78
--- NOTE | 2024-04-19 12:12 | W.PN.CARDCBS ---
Addendum entered and electronically signed by Lico Jo MD 04/19/24 13:56:
patient seen and examined
agree with MICK Whitt's notes and assessment
agree with MICK Whitt's plan
exam:
cor irregularly irregular
lungs ctab
tele noted
aao x 3
non focal neurologically
Impression/plan:
Presented 04/18/2024 for elective admission for Tikosyn initiation
Concern for left lower extremity soft tissue abscess
Paroxysmal atrial fibrillation
NICM EF 40-45%
Chronic LBBB
Moderate to severe MR by TTE 07/23/22, but more mild to moderate by LYNETTE 08/22/22
Aortic sclerosis without stenosis
HTN
Hyperlipidemia
Chronic back pain s/p back surgery at [facility] 10/2022
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
BORIS w/ CPAP
GERD
H/o bowel obstruction
Hypothyroidism
Exercise mibi 06/06/19: Completed 6 minutes Josesito protocol for 107% MPHR and abnormal ECG with 1.[address] depression II, III, aVF that did not improve until 2 min into recovery, but there was normal perfusion imaging
Cardiac catheterization 08/22/2022:�Nonobstructive coronary artery disease with only minor luminal irregularity, Normal/near normal LVEDP measuring 15 mmHg
Echo 10/04/20: EF 52%, possible mild abnormal relaxation, mild MR
ECHO 07/23/22:�EF 40 to 45%, mild global hypokinesis, stage I diastolic dysfunction, severely dilated left atrium, moderate to severe central mitral regurgitation, mild to moderate AAS with peak/mean gradients 19/13 mmHg, HERMINIA 1.3 cm�, mild TR, PAP 45
to 50 mmHg
LYNETTE 08/22/2022:�EF 45%, mildly reduced systolic function.� Mild to moderate central MR.
Echo 01/07/23: EF 46%, stage II diastolic dysfunction, mod to sev MR, mild peak/mean 16/10 mmHg, mild to mod TR with PAP 62 mmHg
Echo 11/19/2023: EF 48%, mild cLVH, stage I diastolic dysfunction, mild MR, mild with peak/mean gradients 18/10 mmHg, mild AI
Plan:
Patient presented 04/18/2024 for elective admission for Tikosyn initiation due to paroxysmal atrial fibrillation. However on presentation patient found to have progression/worsening of left knee soft tissue abscess with septic bursitis. Given
these findings initiation of Tikosyn has been placed on hold given ongoing infection
Paroxysmal atrial fibrillation/atrial fibrillation/tachycardia
-Prior amiodarone therapy d/c due to hyperpigmentation of legs and arms
-Continues oral anticoagulation with Eliquis
-Increase Toprol to 50 mg in am and 25 mg in evening; continue to uptitrate for rate control.
-Eventual initiation of dofetilide; Possibly bring back in 2-4 weeks after infection is under better control
Left knee MSSA soft tissue abscess with septic bursitis, concern for worsening infection upon presentation
-Wound cultures pending
-Appreciate ID input. Plan to treat with 6 weeks of IV cefazolin 2g IV q8 through 05/30/24. PICC in place.
-Appreciate Ortho input; continue antibiotics.
Chronic HFmrEF
-Continue outpatient meds: Losartan, Toprol, Lasix
Original Note:
Today's Communication / Plan
-
Hold on initiation of Tikosyn at this time
Will increase Toprol for better rate control
Continue Eliquis
Continue IV antibiotics 6 weeks of IV cefazolin per ID
Impression / Plan
-
PCP: Nannette Louise PA-C
Subway Train Operator: Dr. Maria Del Rosario Cortes
EP: Dr. Jose Eduardo Cortes
Impression/plan:
Presented 04/18/2024 for elective admission for Tikosyn initiation
Concern for left lower extremity soft tissue abscess
Paroxysmal atrial fibrillation
NICM EF 40-45%
Chronic LBBB
Moderate to severe MR by TTE 07/23/22, but more mild to moderate by LYNETTE 08/22/22
Aortic sclerosis without stenosis
HTN
Hyperlipidemia
Chronic back pain s/p back surgery at [facility] 10/2022
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
BORIS w/ CPAP
GERD
H/o bowel obstruction
Hypothyroidism
Exercise mibi 06/06/19: Completed 6 minutes Josesito protocol for 107% MPHR and abnormal ECG with 1.[address] depression II, III, aVF that did not improve until 2 min into recovery, but there was normal perfusion imaging
Cardiac catheterization 08/22/2022:�Nonobstructive coronary artery disease with only minor luminal irregularity, Normal/near normal LVEDP measuring 15 mmHg
Echo 10/04/20: EF 52%, possible mild abnormal relaxation, mild MR
ECHO 07/23/22:�EF 40 to 45%, mild global hypokinesis, stage I diastolic dysfunction, severely dilated left atrium, moderate to severe central mitral regurgitation, mild to moderate AAS with peak/mean gradients 19/13 mmHg, HERMINIA 1.3 cm�, mild TR, PAP 45
to 50 mmHg
LYNETTE 08/22/2022:�EF 45%, mildly reduced systolic function.� Mild to moderate central MR.
Echo 01/07/23: EF 46%, stage II diastolic dysfunction, mod to sev MR, mild peak/mean 16/10 mmHg, mild to mod TR with PAP 62 mmHg
Echo 11/19/2023: EF 48%, mild cLVH, stage I diastolic dysfunction, mild MR, mild with peak/mean gradients 18/10 mmHg, mild AI
Plan:
Patient presented 04/18/2024 for elective admission for Tikosyn initiation due to paroxysmal atrial fibrillation. However on presentation patient found to have progression/worsening of left knee soft tissue abscess with septic bursitis. Given
these findings initiation of Tikosyn has been placed on hold given ongoing infection
Paroxysmal atrial fibrillation/atrial fibrillation/tachycardia
-Prior amiodarone therapy d/c due to hyperpigmentation of legs and arms
-Continues oral anticoagulation with Eliquis
-Increase Toprol to 50 mg in am and 25 mg in evening; continue to uptitrate for rate control.
-Eventual initiation of dofetilide; Possibly bring back in 2-4 weeks after infection is under better control
Left knee MSSA soft tissue abscess with septic bursitis, concern for worsening infection upon presentation
-Wound cultures pending
-Appreciate ID input. Plan to treat with 6 weeks of IV cefazolin 2g IV q8 through 05/30/24. PICC in place.
-Appreciate Ortho input; continue antibiotics.
Chronic HFmrEF
-Continue outpatient meds: Losartan, Toprol, Lasix
HPI 04/18/2024:
Nicolette is an 84 year old female with PMH of chronic HFmrEF, NICM, paroxysmal atrial fibrillation/flutter, LBBB, MR, HTN, HLD, BORIS, hypothyroidism, GERD, left knee MSSA soft tissue abscess with septic bursitis.
Her atrial fibrillation had been managed with amiodarone but she developed bluegray hyperpigmentation of her bilateral lower and upper extremities and the medication was stopped on 01/30/2024. She has developed paroxysmal atrial fibrillation since
coming off amiodarone. An echocardiogram 11/19/2023 showed mildly reduced left ventricular systolic function with a EF of 48% and moderately enlarged left atrium with mild MR and mild aortic stenosis. It was decided to initiate dofetilide after 2
months amiodarone washout. Of note she was hospitalized at March 2024 for left knee abscess and cellulitis and underwent anserine debridement and irrigation 03/18/2024. Cardiology consulted during that admission for evaluation due to
uncontrolled heart rates in atrial fibrillation and patient was rate controlled with increase in outpatient Toprol dose to 25 mg twice daily.
She was seen by ID last week and there were concerns for persistent serous drainage from the prepatellar bursa with concern for development of sinus tract to the bone. A 6-week course of IV cefazolin was advised. Since she was being admitted for
Tikosyn it was decided to also place a PICC line to set up for IV antibiotics while inpatient.
Progress Note - Subway Train Operator
Subjective
Date of Service: April 19, 2024
Patient seen and examined. Patient sitting up comfortably in chair. Notes palpitations and higher heart rates with activity but comfortable at rest. Still complaining of left knee pain
Objective
Labs:
04/19/24 03:41
04/19/24 03:41
Labs
Hgb 10.9 g/dL (12.0-16.0) L 04/19/24 03:41
Hct 36.1 % (37.0-47.0) L 04/19/24 03:41
Plt Count 271 10^3/uL (130-400) 04/19/24 03:41
Sodium 141 mmol/L (135-145) 04/19/24 03:41
Potassium 4.5 mmol/L (3.5-5.1) 04/19/24 03:41
BUN 30 mg/dl (7-17) H 04/19/24 03:41
Creatinine 1.0 mg/dL (0.6-1.0) 04/19/24 03:41
Glucose 100 mg/dl (70-99) H 04/19/24 03:41
Vital Signs and I&O:
Vital Signs
Temp Pulse Resp BP Pulse Ox
97.8 F 79 18 121/70 95
04/19/24 11:42 04/19/24 10:45 04/19/24 11:42 04/19/24 08:42 04/19/24 11:42
Vital Signs
Temp Pulse Resp BP Pulse Ox
97.8 F 79 18 121/70 95
04/19/24 11:42 04/19/24 10:45 04/19/24 11:42 04/19/24 08:42 04/19/24 11:42
Intake & Output
04/17/24 04/18/24 04/19/24 04/20/24
06:59 06:59 06:59 06:59
Intake Total 960 / 960
Balance 960 / 960
Physical Exam
Physical Exam
GEN: No distress, awake, Ox3, sitting up in chair
HEENT: supple, anicteric, mmm
LUNGS: CTA, no wheezes/rales
CV: Irregularly irregular, S1/S2, 1/6 murmur
ABD: soft, BS+, NT/ND
EXT: Bluegray hyperpigmentation bilateral lower extremities and upper extremities. Left knee with dressing covering wound
NEURO: Gross non-focal
--- NOTE | 2024-04-19 14:41 | CM ---
[facility] referral faxed, spoke to danielle jackson. she will confirm that a rep can come tomorrow to teach pt and that delivery of her med will be by 10pm thu evening. referral to fay- for am start date to care for the PICC .
copay for pt is approx- $140/wk-supplies and $90/wk for Medication cost.
[2024-04-19 15:53] VITALS: BP 122/89
[2024-04-19] MEDS: NEURONTIN PO ×2 (16:35→19:49)
[2024-04-19 19:31] VITALS: BP 107/82
[2024-04-19] MEDS: MELATONIN 3 MG PO (19:49)
[2024-04-19] MEDS: TOPROL XL PO (19:55)
--- NOTE | 2024-04-19 20:38 | PTCARENOTE ---
Pt received at change of shift. afib HR ranging from 90s- 120s with movement. Plan of care discussed. pt verbalized understanding. L knee dressing remains CDI. education on BB given. PICC flushed and wipes completed per protocol. Call parker within
reach.
[2024-04-19 22:05] VITALS: BP 116/99
[2024-04-20 04:29] VITALS: BP 135/92
[2024-04-20] MEDS: ANCEF 10 IV ×2 (04:58→14:46)
[2024-04-20] MEDS: SYNTHROID 125 MCG PO (04:58)
[2024-04-20 05:36] LABS: Hematocrit 35.6 % (37.0-47.0); Mean Corp Hgb Conc. 30.9 g/dL (33.0-37.0); Mean Corpuscular Volume 90.6 fL (81.0-99.0); Mean Platelet Volume 9.2 fL (7.4-10.4); Platelet Count 259 10^3/uL (130-400); Red Blood Cell Count 3.93 10^6/uL (4.20-5.40); Red Cell Dist. Width 17.1 % (11.5-14.5); White Blood Cell Count 5.3 10^3/uL (4.8-10.8)
[2024-04-20 05:47] LABS: Blood Urea Nitrogen 27 mg/dl (7-17); Calcium 8.8 mg/dl (8.4-10.2); Carbon Dioxide 33 mmol/L (22-30); Chloride 100 mmol/L (98-107); Estimated Creatinine Clearance 49 ml/min; Glucose 98 mg/dl (70-99); Potassium 4.2 mmol/L (3.5-5.1); Sodium 138 mmol/L (135-145); eGFR > 60.00
[2024-04-20 06:00] VITALS: BMI 28.7
--- NOTE | 2024-04-20 07:43 | W.PN.UPDATE ---
Update Note
Progress Note Update
Patient seen and examined by Orthopedic surgery.. She reports that she is feeling better this AM. Resting comfortably in bed. Preliminary Gram stain revealing many WBC, no organisms seen. Preliminary culture without growth; will continue to follow.
Continue wound care treatment. Continue treatment per primary team and ID. Currently on Cefazolin. Plan to treat with 6 weeks of IV cefazolin 2g IV q8 through 05/30/[address] ID. PICC in place. Orthopedic surgery will continue to follow.
[2024-04-20 07:52] VITALS: BP 133/67
[2024-04-20] MEDS: LASIX 40 MG PO (07:58)
[2024-04-20] MEDS: ELIQUIS 5 MG PO (07:58)
[2024-04-20] MEDS: PROTONIX 20 MG PO (07:59)
[2024-04-20] MEDS: KCL 20 MEQ PO (07:59)
[2024-04-20] MEDS: VITAMIN C 500 MG PO (07:59)
[2024-04-20] MEDS: VITAMIN E 800 UNITS PO (07:59)
[2024-04-20] MEDS: COZAAR 25 MG PO (08:00)
[2024-04-20] MEDS: HIPREX 1 GRAM PO (08:00)
[2024-04-20] MEDS: VITAMIN B-12 500 MCG PO (08:00)
[2024-04-20] MEDS: VITAMIN D3 (cholecalciferol) 50 MCG PO (08:00)
[2024-04-20] MEDS: LIPITOR 10 MG PO (08:04)
[2024-04-20] MEDS: MIRALAX 17 GRAMS PO (08:05)
[2024-04-20] MEDS: NEURONTIN 100 MG PO ×2 (08:05→16:07)
[2024-04-20] MEDS: TOPROL XL 50 MG PO (08:05)
--- NOTE | 2024-04-20 09:40 | PTCARENOTE ---
Assumed care of pt from night RN. Pt received awake and alert, Ox3. VSS, CM shows AF80's, POX 97% on RA. Ortho in to check left knee, which remains CDI. Pt ambulating to BR with walker easily. She denies any pain or discomfort. Will continue
to monitor closely.
--- NOTE | 2024-04-20 10:30 | W.PN.CARDCBS ---
Addendum entered and electronically signed by Lico Jo MD 04/20/24 10:55:
Patient seen and examined
Agree with MICK More's note and assessment
Agree with MICK More's plan
Exam:
Telemetry with underlying atrial tachyarrhythmias with better rate control
Palpation of left knee demonstrates less tenderness today and less swollen
Remainder of examination per MICK More's note
Impression:
Presented 04/18/2024 for elective admission for Tikosyn initiation
Concern for left lower extremity soft tissue abscess
Paroxysmal atrial fibrillation
NICM EF 40-45%
Chronic LBBB
Moderate to severe MR by TTE 07/23/22, but more mild to moderate by LYNETTE 08/22/22
Aortic sclerosis without stenosis
HTN
Hyperlipidemia
Chronic back pain s/p back surgery at [facility] 10/2022
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
BORIS w/ CPAP
GERD
H/o bowel obstruction
Hypothyroidism
Exercise mibi 06/06/19: Completed 6 minutes Josesito protocol for 107% MPHR and abnormal ECG with 1.[address] depression II, III, aVF that did not improve until 2 min into recovery, but there was normal perfusion imaging
Cardiac catheterization 08/22/2022:�Nonobstructive coronary artery disease with only minor luminal irregularity, Normal/near normal LVEDP measuring 15 mmHg
Echo 10/04/20: EF 52%, possible mild abnormal relaxation, mild MR
ECHO 07/23/22:�EF 40 to 45%, mild global hypokinesis, stage I diastolic dysfunction, severely dilated left atrium, moderate to severe central mitral regurgitation, mild to moderate AAS with peak/mean gradients 19/13 mmHg, HERMINIA 1.3 cm�, mild TR, PAP 45
to 50 mmHg
LYNETTE 08/22/2022:�EF 45%, mildly reduced systolic function.� Mild to moderate central MR.
Echo 01/07/23: EF 46%, stage II diastolic dysfunction, mod to sev MR, mild peak/mean 16/10 mmHg, mild to mod TR with PAP 62 mmHg
Echo 11/19/2023: EF 48%, mild cLVH, stage I diastolic dysfunction, mild MR, mild with peak/mean gradients 18/10 mmHg, mild AI
Plan:
-Patient was scheduled for direct admission for Tikosyn loading for paroxysmal Afib 04/18/24, but in the interim was found to MSSA septic bursitis and ID recommended a PICC line be placed and IV antibiotics be started at the time of Tikosyn
admission. When patient arrived for direct admission the knee infection looked worse and case was transferred to hospitalists service. Given the need for long-term antibiotics we will postpone dofetilide initiation and bring her back in 4 to 6
weeks for reattempt at antiarrhythmic drug therapy. From a cardiovascular standpoint on increased metoprolol she has better rate control and feels better. I have no objection to discharge from a cardiovascular standpoint but understand that there
is ongoing management of her septic arthritis.
-Patient was seen by ID and Ortho. ID note is concerned for possible sinus tract to bone, but Ortho note feels patient is improving. Current plan is for 6 weeks of cefazolin.
-From a cardiac standpoint the patient is not a candidate for Tikosyn loading at this time. Will arrange for outpatient follow up to see if patient is a candidate in the next 6-8 weeks pending current course.
-Tele reviewed by me and patient remains in Afib with HRs controlled in the 90s with slightly increased compared to admission dose of Toprol XL 50 mg AM and 25 mg PM daily.
-Outpatient dose of losartan 25 mg daily has been continued
-Outpatient dose of Lasix 40 mg daily has been continued
-Outpatient dose of Eliquis 5 mg twice daily has been continued. If there is interruption in her OAC then she will need to push back Tikosyn loading 4 weeks or would need a LYNETTE prior to Tikosyn loading if less than 4 weeks
-Will sign off, please call with questions
Original Note:
Today's Communication / Plan
-
Patient is not a candidate for Tikosyn loading at this time, will try again in 6-8 weeks
Will sign off, please call with questions
Impression / Plan
-
PCP: Nannette Louise PA-C
Turbo Electric Operator: Dr. Maria Del Rosario Cortes
EP: Dr. Jose Eduardo Cortes
Impression:
Presented 04/18/2024 for elective admission for Tikosyn initiation
Concern for left lower extremity soft tissue abscess
Paroxysmal atrial fibrillation
NICM EF 40-45%
Chronic LBBB
Moderate to severe MR by TTE 07/23/22, but more mild to moderate by LYNETTE 08/22/22
Aortic sclerosis without stenosis
HTN
Hyperlipidemia
Chronic back pain s/p back surgery at [facility] 10/2022
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
BORIS w/ CPAP
GERD
H/o bowel obstruction
Hypothyroidism
Exercise mibi 06/06/19: Completed 6 minutes Josesito protocol for 107% MPHR and abnormal ECG with 1.[address] depression II, III, aVF that did not improve until 2 min into recovery, but there was normal perfusion imaging
Cardiac catheterization 08/22/2022:�Nonobstructive coronary artery disease with only minor luminal irregularity, Normal/near normal LVEDP measuring 15 mmHg
Echo 10/04/20: EF 52%, possible mild abnormal relaxation, mild MR
ECHO 07/23/22:�EF 40 to 45%, mild global hypokinesis, stage I diastolic dysfunction, severely dilated left atrium, moderate to severe central mitral regurgitation, mild to moderate AAS with peak/mean gradients 19/13 mmHg, HERMINIA 1.3 cm�, mild TR, PAP 45
to 50 mmHg
LYNETTE 08/22/2022:�EF 45%, mildly reduced systolic function.� Mild to moderate central MR.
Echo 01/07/23: EF 46%, stage II diastolic dysfunction, mod to sev MR, mild peak/mean 16/10 mmHg, mild to mod TR with PAP 62 mmHg
Echo 11/19/2023: EF 48%, mild cLVH, stage I diastolic dysfunction, mild MR, mild with peak/mean gradients 18/10 mmHg, mild AI
Plan:
-Patient was scheduled for direct admission for Tikosyn loading for paroxysmal Afib 04/18/24, but in the interim was found to MSSA septic bursitis and ID recommended a PICC line be placed and IV antibiotics be started at the time of Tikosyn
admission. When patient arrived for direct admission the knee infection looked worse and case was transferred to hospitalists service
-Patient was seen by ID and Ortho. ID note is concerned for possible sinus tract to bone, but Ortho note feels patient is improving. Current plan is for 6 weeks of cefazolin.
-From a cardiac standpoint the patient is not a candidate for Tikosyn loading at this time. Will arrange for outpatient follow up to see if patient is a candidate in the next 6-8 weeks pending current course.
-Tele reviewed by me and patient remains in Afib with HRs controlled in the 90s with slightly increased compared to admission dose of Toprol XL 50 mg AM and 25 mg PM daily.
-Outpatient dose of losartan 25 mg daily has been continued
-Outpatient dose of Lasix 40 mg daily has been continued
-Outpatient dose of Eliquis 5 mg twice daily has been continued. If there is interruption in her OAC then she will need to push back Tikosyn loading 4 weeks or would need a LYNETTE prior to Tikosyn loading if less than 4 weeks
-Will sign off, please call with questions
HPI 04/18/2024:
Nicolette is an 84 year old female with PMH of chronic HFmrEF, NICM, paroxysmal atrial fibrillation/flutter, LBBB, MR, HTN, HLD, BORIS, hypothyroidism, GERD, left knee MSSA soft tissue abscess with septic bursitis.
Her atrial fibrillation had been managed with amiodarone but she developed bluegray hyperpigmentation of her bilateral lower and upper extremities and the medication was stopped on 01/30/2024. She has developed paroxysmal atrial fibrillation since
coming off amiodarone. An echocardiogram 11/19/2023 showed mildly reduced left ventricular systolic function with a EF of 48% and moderately enlarged left atrium with mild MR and mild aortic stenosis. It was decided to initiate dofetilide after 2
months amiodarone washout. Of note she was hospitalized at March 2024 for left knee abscess and cellulitis and underwent anserine debridement and irrigation 03/18/2024. Cardiology consulted during that admission for evaluation due to
uncontrolled heart rates in atrial fibrillation and patient was rate controlled with increase in outpatient Toprol dose to 25 mg twice daily.
She was seen by ID last week and there were concerns for persistent serous drainage from the prepatellar bursa with concern for development of sinus tract to the bone. A 6-week course of IV cefazolin was advised. Since she was being admitted for
Tikosyn it was decided to also place a PICC line to set up for IV antibiotics while inpatient.
Progress Note - Turbo Electric Operator
Subjective
Date of Service: April 20, 2024
Feels like she is doing better, no palpitations
Objective
Labs:
04/20/24 05:08
04/20/24 05:08
Labs
Hgb 11.0 g/dL (12.0-16.0) L 04/20/24 05:08
Hct 35.6 % (37.0-47.0) L 04/20/24 05:08
Plt Count 259 10^3/uL (130-400) 04/20/24 05:08
Sodium 138 mmol/L (135-145) 04/20/24 05:08
Potassium 4.2 mmol/L (3.5-5.1) 04/20/24 05:08
BUN 27 mg/dl (7-17) H 04/20/24 05:08
Creatinine 0.9 mg/dL (0.6-1.0) 04/20/24 05:08
Glucose 98 mg/dl (70-99) 04/20/24 05:08
Vital Signs and I&O:
Vital Signs
Temp Pulse Resp BP Pulse Ox
97.1 F 91 16 133/67 97
04/20/24 07:47 04/20/24 07:52 04/20/24 07:47 04/20/24 07:52 04/20/24 09:33
Vital Signs
Temp Pulse Resp BP Pulse Ox
97.1 F 91 16 133/67 97
04/20/24 07:47 04/20/24 07:52 04/20/24 07:47 04/20/24 07:52 04/20/24 09:33
Intake & Output
04/18/24 04/19/24 04/20/24 04/21/24
06:59 06:59 06:59 06:59
Intake Total 960 / 960
Balance 960 / 960
Physical Exam
Physical Exam
GEN: AAOx3
HEENT: mmm
LUNGS: RA. No audible wheeze
CV: Afib on tele
ABD: sND
EXT: Left knee with dressing covering wound
NEURO: Gross non-focal
--- NOTE | 2024-04-20 10:52 | W.PN.HOSP.TC ---
Today's Communication/Plan
-
Discharge today
Assessment / Plan
Assessment / Plan
Physical Exam
General: No Apparent Distress
HEENT: Normocephalic
Respiratory: Clear
Cardiac: S1/S2 and Irregular Rhythm
GI: Soft, Non Tender and Normal Bowel Sounds
Musculoskeletal: No Cyanosis. RLE covered in dressing/bandage.
Skin: Warm and Dry
Neuro: Awake, Alert and AO x 3
Psych: Calm and Intact Judgement
Assessment/Plan
Relapsed Left knee MSSA septic bursitis -- abscess in surgical site (from surgical procedure in March 2024)
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
Left knee prepatellar bursitis status post I&D 03/18/2024 no joint involvement seen in OR
-Antibiotics as per ID: continue 6 weeks of IV cefazolin 2g IV q8 through 05/30/24.
-Follow up with Dr. Sushila Bueno (Infectious Diseases) in 3 to 4 weeks.
Chronic HFmrEF
NICM EF 40-45%
-Continue Losartan 25 mg daily and Lasix 40 mg daily
-Toprol increased this hospitalization for better rate control: Toprol XL 50 mg in AM and 25 mg in PM
Paroxysmal atrial fibrillation (s/p PVI and Atach ablation 12/10/20)
Paroxysmal typical atrial flutter status post cardioversion
-Given hyperpigmentation of legs and arms, prior amiodarone therapy stopped
-Continues Eliquis 5 mg BID
-Toprol: Increase Toprol to 50 mg in am and 25 mg in evening and continue to uptitrate for rate control
-Eventual initiation of dofetilide once ID evaluated wound and plan for treatment determined (will need to wait for wound cultures to see whether alternative antibiotics that could be contraindicated with Tikosyn and/or surgery requiring hold of
anticoagulation is not needed).
Aortic sclerosis without stenosis
Chronic LBBB
MR
Hypertension
Hyperlipidemia
BORIS
Hypothyroidism
GERD
Chronic back pain status post back surgery
DVT Prophylaxis: Eliquis
Code Status: Full Code
More than 30 minutes spent in discharge including
Final examination of the patient
Summarizing hospital stay
Instructions for continuing care to all relevant caregivers
Preparation of discharge records, prescriptions, and referral forms
Total time spent (in minutes): 37
Anticipated Discharge: Today
Subjective/Interval History
-
Date of Service: April 20, 2024
Patient was seen and examined. She was feeling well, denied any pain, any new symptoms or complaints.
Objective Data
-
Labs:
Laboratory Results
04/20/24
05:08
WBC 5.3
Hgb 11.0 L
Hct 35.6 L
Plt Count 259
Sodium 138
Potassium 4.2
Chloride 100
Carbon Dioxide 33 H
BUN 27 H
Creatinine 0.9
Glucose 98
Calcium 8.8
Vital Signs:
Vital Signs
Temp Pulse Resp BP Pulse Ox
97.1 F 91 16 133/67 97
04/20/24 07:47 04/20/24 07:52 04/20/24 07:47 04/20/24 07:52 04/20/24 09:33
I&O
04/19/24 04/20/24 04/21/24
06:59 06:59 06:59
Intake Total 960 / 960
Balance 960 / 960
--- NOTE | 2024-04-20 11:01 | W.PN.ID1 ---
Date of Service
Date of Service: April 20, 2024
Today's Communication
Continue 6 weeks of IV cefazolin 2g IV q8 through 05/30/24.
Assessment / Plan
#Relapsed Left knee MSSA septic bursitis
- Recent 03/18/24 s/p I+D of bursa, NO left knee prosthetic joint involvement as per Ortho Dr. Hamlin. OR cx MSSA (interestingly sensitive to doxycycline, pt on chronic suppression), Completed�cephalexin 1000mg po qq8 through , now on
suppressive doxycyline for hx MSSA spine discititis with hardware in place.
- Suspect she may have developed sinus tract to bone. There is also small possibility of left knee PJI.
- Ortho expressed pus from site, cx negative to date.
- Plan to treat with 6 weeks of IV cefazolin 2g IV q8 through 05/30/24.
- PICC in place.
-Follow up with me in 3 to 4 weeks.
# Afib
- Not Tikosyn candidate at this time
#Conditions [employer] PERSON
Afib
CHF
HTN
HLD
Hypothyroidism
Depression
BORIS
Interstitial cystitis
MSSA (pansensitive) bacteremia 10/01/22 ([facility])
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
MSSA left knee bursitis s/p I+D 03/18/24
Left knee TKR 2016
Right knee TKR
Arthroscopy right shoulder.
Tonsillectomy.
Appendectomy.
Tubal ligation.
Chief Complaint
-: Other (bursitis)
Subjective / Review of Systems
No complaints today.
Vital Signs / Physical Exam
Vital Signs
Vital Signs
Temp Pulse Resp BP Pulse Ox
97.1 F 91 16 133/67 97
04/20/24 07:47 04/20/24 07:52 04/20/24 07:47 04/20/24 07:52 04/20/24 09:33
Physical Exam
Constitutional: No Acute Distress and Comfortable
Pulmonary: Clear
Gastrointestinal: Soft, Non Tender, Non Distended and Normal Bowel Sounds
Genito-Urinary: Negative CVA Tenderness
Wound: Other (Left inferior patella induration decreased)
Objective Data
Lab Data
Lab Results
04/20/24 05:08
04/20/24 05:08
Estimated Creat Clear 49 ml/min 04/20/24 05:08
Total Bilirubin 0.5 mg/dl (0.2-1.3) 04/18/24 11:59
AST 23 U/L (14-36) 04/18/24 11:59
ALT 13 U/L (0-35) 04/18/24 11:59
Alkaline Phosphatase 75 U/L (38-126) 04/18/24 11:59
Most recent labs reviewed.
Micro Results:
04/18/24 14:29 Wound Culture - Preliminary
Knee - Left No growth
Gram Stain - Preliminary
04/18/24 14:29 Anaerobic Culture - Preliminary
Knee - Left Culture pending. Anaerobic cultures are examined after 3
days incubation. Additional information to follow.
Care Review
Plan reviewed with: Physician (Dr. Akers)
--- NOTE | 2024-04-20 12:04 | CM ---
Chart reviewed. Patient is independent of ADLS, lives with her in a 2 STH, 1st floor set up, 3 ZULAY, ambulates with a SPC. Patient going home with IV antibiotics. [facility] in to see patient and teaching. Antibiotics to be delivered
Caroline MONTALVO to be see patient tomorrow 04/21. Plan is for the patient to go home with [facility] and [facility]. CM to follow
[2024-04-20 12:14] VITALS: BP 130/74
[2024-04-20 15:46] VITALS: BP 104/54
[2024-04-20] MEDS: TYLENOL 325 MG PO (18:27)
--- NOTE | 2024-04-20 18:33 | PTCARENOTE ---
All d/c info reviewed with pt, all questions answered. Pt d/c'd home with spouse.
== END 2024-04-20 18:30 | disposition home health service (06) | DRG 309 ==
LOC: IVU 08:53
PROVIDERS: Nurse Practitioner; ADMITTING PHYSICIAN Internal Medicine Cardiovascular Disease; ATTENDING PHYSICIAN Hospitalist; CONSULT PHYSICIAN Internal Medicine Infectious Disease; FAMILY PHYSICIAN Physician Assistant Medical; OTHER PHYSICIAN Internal Medicine Cardiovascular Disease
PROC: 02HV33Z Insertion of Infusion Device into Superior Vena Cava, Percutaneous Approach (ICD-10-PCS; 2024-04-18)
DX: I48.0 Paroxysmal atrial fibrillation (principal); I50.22 Chronic systolic (congestive) heart failure; B95.61 Methicillin susceptible Staphylococcus aureus infection as the cause of diseases classified elsewhere; I42.8 Other cardiomyopathies; M70.42 Prepatellar bursitis, left knee; I11.0 Hypertensive heart disease with heart failure; E78.00 Pure hypercholesterolemia, unspecified; E03.9 Hypothyroidism, unspecified; K21.9 Gastro-esophageal reflux disease without esophagitis; Z87.891 Personal history of nicotine dependence; I48.3 Typical atrial flutter
CPT/HCPCS: 71045; 73564; 80048; 80053; 83735; 85027; 87070; 87075; 87205; 93005

== ENCOUNTER 2024-04-27 09:24 | Emergency (ER) | payer MEDICARE, BC, SELFPAY ==
[2024-04-27 09:33] VITALS: BP 123/59
[2024-04-27 10:11] LABS: % Basophils 0.8 % (0-2); % Eosinophils 6.4 % (0-6); % Immature Granulocytes 0.4 % (0-0.5); % Lymphocytes 18.2 % (20.5-51.1); % Monocytes 6.8 % (1.7-9.3); % Neutrophils 67.4 % (42.2-75.2); Absolute Eosinophils 0.3 10^3/uL (0-0.7); Absolute Monocytes 0.4 10^3/uL (0.1-0.6); Absolute Neutrophils 3.6 10^3/uL (1.4-6.5); Hematocrit 37.6 % (37.0-47.0); Hemoglobin 11.7 g/dL (12.0-16.0); Mean Corp Hgb Conc. 31.1 g/dL (33.0-37.0); Mean Corpuscular Hgb 28.5 pg (27.0-31.0); Mean Corpuscular Volume 91.7 fL (81.0-99.0); Mean Platelet Volume 9.4 fL (7.4-10.4); Nucleated Red Blood Cells % 0 %; Platelet Count 267 10^3/uL (130-400); Red Cell Dist. Width 16.4 % (11.5-14.5); White Blood Cell Count 5.3 10^3/uL (4.8-10.8)
[2024-04-27 10:22] LABS: ALT (SGPT) < 10 U/L (0-35); AST (SGOT) 26 U/L (14-36); Albumin 3.8 g/dl (3.5-5.0); Alkaline Phosphatase 54 U/L (38-126); Blood Urea Nitrogen 33 mg/dl (7-17); Carbon Dioxide 33 mmol/L (22-30); Chloride 99 mmol/L (98-107); Glucose 99 mg/dl (70-99); Potassium 3.7 mmol/L (3.5-5.1); Sodium 140 mmol/L (135-145); Total Bilirubin 0.3 mg/dl (0.2-1.3); Total Protein 7.9 g/dl (6.3-8.2)
[2024-04-27 10:33] LABS: NT-proBNP 3860 pg/ml; Troponin I < 0.012 ng/ml
--- NOTE | 2024-04-27 11:34 | ED.GENMED ---
Addendum entered and electronically signed by Monik Melendez MD 04/27/24 15:09:
3:09 PM of note patient dropped her wallet while in the waiting room and suffered a superficial skin tear to the right lower alarcon in a V shape. This was cleaned, Steri-Strips were applied as well as a pressure dressing and patient advised regarding
importance of follow-up and close monitoring.
Original Note:
History of Present Illness
General
Chief Complaint: Breathing Problem
Source: patient, records and spouse
Time Seen by Provider: 04/27/24 11:17
History of Present Illness
History of Present Illness:
This patient is an 84-year-old female who who provides the history with at bedside. She states she was feeling perfectly well and she went to bed and she awoke at 4 AM feeling like she was short of breath. She said it took her 10 minutes
to catch her breath and then she walked to her recliner, sitting upright thinking that this would help her. However, every time she tried to sleep she would feel short of breath again and wake up. She denies associated palpitations but she does
note that she had chest 'pressure' which she says is 'not pain'. She decided to take her metoprolol approximately 5 AM and she states 'I am convinced that is what help'. She now denies dyspnea, but still notes mild chest pressure. She denies
radiation of the pressure. It is not pleuritic in nature. She denies recent URI symptoms such as cough, sore throat, fever, chills. She denies new leg swelling, hemoptysis, or history of DVT. Of note, patient is getting antibiotics through a
PICC line for a left lower extremity infection. She was recently taken off amiodarone but not yet transition to Tikosyn.
Past History
Past History
ED Past Medical History: Arrthythmia, NIDDM, Valvular disease, Hypothyroidism and Other
ED Past Surgical History: Appendectomy, Cardiac (Ablation for SVT/A. fib), Gynecological (Tubal ligation), Orthopedic (Shoulder surgery knee surgery), Tonsilectomy and Other (Eye operation)
Social History
Tobacco: Former smoker
Alcohol: Occasional (One glass a wine per day)
Drug: None
Personal:
Living: with family
Employment: Retired
Family History
Family History: Other (Noncontributory)
Phy Exam
Physical Exam
Physical Exam:
GENERAL: Alert , in no apparent distress, extremely well-appearing, pleasant, smiling, in no distress
EYE: pupils equal and reactive
NECK: Supple, no significant adenopathy.
ENT: o/p clr, mmm.
CARDIAC: Irregularly irregular
LUNGS: Clear breath sounds bilaterally, no acute respiratory distress, no wheezes rales or rhonchi, speaks in full sentences easily, no splinting
ABDOMEN: Soft, without focal tenderness, no r/g, no cvat
NEUROLOGICAL: Alert and oriented, no focal neuro deficits
SKIN: Warm and dry, skin intact.
MUSCULOSKELETAL: No edema, well perfused.
PSYCH: Normal and appropriate interaction.
Scores
Heart Failure Risk
Heart Failure Risk Score: Not Applicable
Course
Orders/Labs/Results
Orders:
Orders
04/27/24 09:38
Electrocardiogram (*1) Urgent
Reason for Study: Shortness of Breath
EKG- Treatment ONCE
04/27/24 09:39
CR Chest - 2 Views Urgent
Comment:
Reason For Exam: sob and chest pressure
04/27/24 09:54
Complete Blood Count/With Diff Urgent
Comprehensive Metabolic Panel Urgent
NT-proBNP Urgent
Troponin I Urgent
04/27/24 13:28
EKG [Electrocardiogram (*1)] Urgent
Reason for Study: Chest Pain
Comment: 2nd trop
EKG- Treatment ONCE
04/27/24 13:45
Troponin I Urgent
Abnormal Lab Results
04/27/24
09:54
RBC 4.10 L 10^6/uL
(4.20-5.40)
Hgb 11.7 L g/dL
(12.0-16.0)
MCHC 31.1 L g/dL
(33.0-37.0)
RDW 16.4 H %
(11.5-14.5)
Absolute Lymphs (auto) 1.0 L 10^3/uL
(1.2-3.4)
Lymphocytes % 18.2 L %
(20.5-51.1)
Eosinophils % 6.4 H %
(0-6)
Carbon Dioxide 33 H mmol/L
(22-30)
BUN 33 H mg/dl
(7-17)
Creatinine 1.3 H mg/dL
(0.6-1.0)
04/27/24 09:54
04/27/24 09:54
Vital Signs
Initial and Last Documented VS:
Initial Vital Signs
Temp Pulse Resp BP Pulse Ox
97.5 F 68 18 123/59 100
04/27/24 09:33 04/27/24 09:33 04/27/24 09:33 04/27/24 09:33 04/27/24 09:33
Last Documented Vital Signs
Temp Pulse Resp BP Pulse Ox
97.5 F 68 16 123/66 99
04/27/24 09:33 04/27/24 09:33 04/27/24 11:48 04/27/24 11:47 04/27/24 11:56
*Critical Care Note
Total Time (30-74mins, 75-104mins- exclusive of procedures): Not Applicable
Update Note
Update Note:
Patient presents to the Emergency Department with shortness of breath and chest pressure____
Number and Complexity of Problems Addressed at the Encounter
� Chronic conditions affecting care:
� Acute Exacerbation and/or Progression of Chronic Illness:
� Differential Diagnosis includes: But not limited to arrhythmia, pneumonia, ACS, etc. etc.
Amount and/or Complexity of Data to be Reviewed and Analyzed
� I performed an independent evaluation of and my interpretation is:
EKG: Read by me, A-fib, LAD, left bundle, no acute ischemia
CT:
Xrays: Read by me, NAD confirmed by radiology
Laboratory Studies: Generally unremarkable, renal insufficiency noted and patient made aware regarding importance of follow-up, troponin x 2 unremarkable
Other:
� Review of other/old records reveals: Admission 04/20/2024 given need for long-term antibiotics Tikosyn initiation will be delayed for several weeks, metoprolol increased
� Clinical information was obtained by an independent historian: who is bedside
� Prescriptions/Medications Considered but not given:
� Further testing considered but not performed:
Risk of Complications and/or Morbidity or Mortality of Patient Management
� Social determinants of health affecting care:
� Discussion with other providers (PCP, Hospitalists, Consultants, etc):
� Escalation of care including admission/observation vs risk of discharge considered: Patient remains asymptomatic here 2:43 PM she did a walking trial here her pulse ox remained normal no dyspnea. It is possible patient had
tachycardia that caused her dyspnea, particular because she felt better after taking the metoprolol. No acute ischemic changes to suggest ACS. Highly doubt PE given lack of associated symptoms such as pleuritic chest pain, leg swelling, etc.
Discussed with patient importance of follow-up and reasons return to the ER.
ED Attending Note
-
Portions of this chart may have been created with voice recognition software.� Occasional wrong word or��sound alike� substitutions may have occurred due to the inherent limitations of voice recognition software.
Discharge Plan
Departure
Patient Disposition: Home (Routine Discharge)
Date of Disposition: 04/27/24
Time of Disposition: 14:41
Patient with high blood pressure during this ER visit?: Yes
Condition: Good
Discharge Problem:
Dyspnea
Instructions: Shortness of Breath (Dyspnea) (DC), BLOOD PRESSURE
Prescriptions:
No Action
levothyroxine 125 MCG tablet
125 mcg PO DAILY@0400
cholecalciferol (vitamin D3) 2,000 UNIT tablet
2,000 unit PO DAILY
calcium carbonate 600 MG tablet
600 mg PO DAILY
atorvastatin [Lipitor] 10 mg Tablet
10 mg PO DAILY
omeprazole 20 mg Tablet,Delayed Release (Dr/Ec)
20 mg PO DAILY
potassium chloride 10 mEq Tablet Extended Release
20 meq PO DAILY
cyanocobalamin (vitamin B-12) 500 mcg Tablet
500 mcg PO DAILY
losartan 25 mg tablet
25 mg PO DAILY
Eliquis 5 MG tablet
5 mg PO BID
gabapentin 100 mg Capsule
100 mg PO TID
Aranesp (in polysorbate) 200 mcg/0.4 mL Syringe
200 mcg SC DAILYPRN PRN (Reason: Hgb<11)
furosemide 40 mg Tablet
40 mg PO DAILY
polyethylene glycol 3350 [Miralax] 17 gram Powder In Packet
17 g PO DAILYPRN PRN (Reason: constipation)
albuterol sulfate 90 mcg/actuation Hfa Aerosol Inhaler
2 puff INHALATION R Q6HPRN PRN (Reason: sob)
sennosides-docusate sodium 8.6-50 mg tablet
1 tab-cap PO HS
ferrous sulfate 325 mg (65 mg iron) tablet
325 mg PO DAILY
cefazolin 10 gram Recon Soln
2 g IV Q8H 42 Days Qty: 10 0RF
Rx Instructions:
Continue 6 weeks of IV cefazolin 2g IV q8 through 05/30/24
metoprolol succinate 25 mg Tablet Extended Release 24 Hr
25 mg PO HS Qty: 30 1RF
metoprolol succinate 50 mg Tablet Extended Release 24 Hr
50 mg PO .daily in the morning Qty: 30 1RF
Rx Instructions:
50 mg daily in the morning
acetaminophen 500 mg Tablet
1,000 mg PO [id number] PRN (Reason: mild pain) Qty: 0 0RF
Referrals:
Charlie Stringer MD [Family Provider] - Follow up in 2-3 days
Activity Restrictions/Additional Instructions:
PLEASE TAKE YOUR MEDICATIONS YOU NORMALLY WOULD. IF YOU DEVELOP SHORTNESS OF BREATH, CHEST PAIN, FEVER, VOMITING, DIZZINESS, OR OTHER WORRISOME SIGNS, PLEASE RETURN TO THE ER IMMEDIATELY. PLEASE SEE ATTACHED LAB VALUES WHICH REQUIRE CLOSE
FOLLOW-UP PARTICULAR REGARDING KIDNEY FUNCTION.
Interventions
Interventions:
*Risk Screen - Suicide Last Done: 04/27/24 09:33
*General Assessment Last Done: 04/27/24 09:33
*Neglect/Abuse Screening Last Done: 04/27/24 09:33
ED- Fall Risk Assessment Last Done: 04/27/24 11:56
*ED COVID-19 Vaccine History Last Done: 04/27/24 11:56
ED- Cardiac Assessment Last Done: 04/27/24 11:56
ED- Pulmonary Assessment Last Done: 04/27/24 11:56
Discharge Date and Time
Print Language: KAZAKH
[2024-04-27 11:47] VITALS: BP 123/66
[2024-04-27 11:56] VITALS: BMI 29.6
[2024-04-27 12:00] VITALS: BP 126/68
[2024-04-27 13:53] VITALS: BP 139/74
[2024-04-27 14:00] VITALS: BP 126/70
[2024-04-27 14:13] LABS: Troponin I < 0.012 ng/ml
--- NOTE | 2024-04-27 15:17 | EDRN ---
REviewed discharge instructions with patient. Verbalized understanding.
[2024-04-27 15:20] VITALS: BP 128/74
== END 2024-04-27 15:22 | disposition home or self-care (01) ==
LOC: EMR 09:24
PROVIDERS: Emergency Medicine; EMERGENCY PHYSICIAN Emergency Medicine; FAMILY PHYSICIAN Family Medicine
DX: R06.00 Dyspnea, unspecified (principal); E11.9 Type 2 diabetes mellitus without complications; I38 Endocarditis, valve unspecified; E03.9 Hypothyroidism, unspecified; I48.91 Unspecified atrial fibrillation; Z87.891 Personal history of nicotine dependence; Z90.49 Acquired absence of other specified parts of digestive tract; Z98.51 Tubal ligation status
CPT/HCPCS: 99283; 71046; 80053; 83880; 84484; 85025; 93005

== ENCOUNTER → 2024-05-11 10:14 | Outpatient (REF) | payer MEDICARE, BC, SELFPAY ==
[2024-05-11 10:27] LABS: % Basophils 0.4 % (0-2); % Eosinophils 10.2 % (0-6); % Immature Granulocytes 0.2 % (0-0.5); % Lymphocytes 20.8 % (20.5-51.1); % Monocytes 8.7 % (1.7-9.3); % Neutrophils 59.7 % (42.2-75.2); Absolute Eosinophils 0.5 10^3/uL (0-0.7); Absolute Lymphocytes 1.1 10^3/uL (1.2-3.4); Absolute Monocytes 0.5 10^3/uL (0.1-0.6); Absolute Neutrophils 3.1 10^3/uL (1.4-6.5); Hematocrit 36.9 % (37.0-47.0); Hemoglobin 11.2 g/dL (12.0-16.0); Mean Corp Hgb Conc. 30.4 g/dL (33.0-37.0); Mean Corpuscular Hgb 28.2 pg (27.0-31.0); Mean Corpuscular Volume 92.9 fL (81.0-99.0); Mean Platelet Volume 8.8 fL (7.4-10.4); Platelet Count 233 10^3/uL (130-400); Red Blood Cell Count 3.97 10^6/uL (4.20-5.40); Red Cell Dist. Width 15.7 % (11.5-14.5); White Blood Cell Count 5.2 10^3/uL (4.8-10.8)
[2024-05-11 13:06] LABS: Iron 73 ug/dl (37-170)
[2024-05-11 13:16] LABS: Percent Saturation 27 % (20-50); Total Iron Binding Capacity 264 ug/dl (265-497)
[2024-05-11 13:40] LABS: Ferritin 56.1 ng/ml (11.1-264.0)
== END ==
LOC: OIDL 10:14
PROVIDERS: ATTENDING PHYSICIAN Internal Medicine Hematology & Oncology; FAMILY PHYSICIAN Physician Assistant Medical
DX: D64.9 Anemia, unspecified (principal); D63.8 Anemia in other chronic diseases classified elsewhere; D50.8 Other iron deficiency anemias
CPT/HCPCS: 36415; 82728; 83540; 83550; 85025

== ENCOUNTER 2024-05-11 16:00 | Emergency (ER) | payer MEDICARE, BC, SELFPAY ==
[2024-05-11 16:04] VITALS: BP 131/88
--- NOTE | 2024-05-11 16:04 | ED.GENMED ---
ED Provider Triage
-
Patient seen by provider in Triage?: Seen in Triage
84-year-old female presents complaining that her PICC line has been bleeding since this morning. She has been getting antibiotics 3 times a day for the past 3 weeks for a staph infection in her skin. She has been seen by orthopedics as well as
infectious disease. She last used the PICC line at 2 PM today. No other complaints
Patient is stable through triage. Will contact IV team for troubleshooting of the PICC line
Patient evaluated by healthcare provider at triage but warrants further assessment
Update: Patient evaluated by IV team at triage. Troubleshooting performed. The PICC was slightly pulled out however the PICC is still functional and was flushed. Chest x-ray pending to evaluate for placement stable for discharge if chest x-ray
looks okay
History of Present Illness
General
Chief Complaint: Catheter/Tube Problem
Source: patient
Time Seen by Provider: 05/11/24 16:47
History of Present Illness
History of Present Illness:
See above triage note. Bleeding from PICC line
Past History
Past History
ED Past Medical History: Arrthythmia, NIDDM, Valvular disease, Hypothyroidism and Other
ED Past Surgical History: Appendectomy, Cardiac (Ablation for SVT/A. fib), Gynecological (Tubal ligation), Orthopedic (Shoulder surgery knee surgery), Tonsilectomy and Other (Eye operation)
Social History
Tobacco: Former smoker
Alcohol: Occasional (One glass a wine per day)
Drug: None
Personal:
Living: with family
Employment: Retired
Family History
Family History: Other (Noncontributory)
Phy Exam
Physical Exam
Physical Exam:
General: Well-appearing female no acute respiratory distress
Mild amount of blood at the insertion site of the PICC line of the right upper extremity
Course
Orders/Labs/Results
Orders:
Orders
05/11/24 16:13
CR Chest - 2 Views Urgent
Comment:
Reason For Exam: picc line placement
Vital Signs
Initial and Last Documented VS:
Initial Vital Signs
Temp Pulse Resp BP Pulse Ox
98.4 F 102 20 131/88 97
05/11/24 16:04 05/11/24 16:04 05/11/24 16:04 05/11/24 16:04 05/11/24 16:04
Last Documented Vital Signs
Temp Pulse Resp BP Pulse Ox
98.4 F 102 20 131/88 97
05/11/24 16:04 05/11/24 16:04 05/11/24 16:04 05/11/24 16:04 05/11/24 16:04
MDM/Problems Addressed
Differential Diagnosis Includes:
Patient evaluated by IV team. PICC line was cleaned and flushed and is functional. Chest x-ray shows the PICC line is in the superior vena cava. No indication for any further intervention she may continue her antibiotics through the PICC line as
planned stable for discharge
*Critical Care Note
Total Time (30-74mins, 75-104mins- exclusive of procedures): Not Applicable
ED Attending Note
-
Portions of this chart may have been created with voice recognition software.� Occasional wrong word or��sound alike� substitutions may have occurred due to the inherent limitations of voice recognition software.
Discharge Plan
Departure
Patient Disposition: Home (Routine Discharge)
Date of Disposition: 05/11/24
Time of Disposition: 16:49
Patient with high blood pressure during this ER visit?: No
Discharge Problem:
Bleeding from PICC line
Instructions: How to care for a peripherally inserted central catheter (PICC)
Prescriptions:
No Action
levothyroxine 125 MCG tablet
125 mcg PO DAILY@0400
cholecalciferol (vitamin D3) 2,000 UNIT tablet
2,000 unit PO DAILY
calcium carbonate 600 MG tablet
600 mg PO DAILY
atorvastatin [Lipitor] 10 mg Tablet
10 mg PO DAILY
omeprazole 20 mg Tablet,Delayed Release (Dr/Ec)
20 mg PO DAILY
potassium chloride 10 mEq Tablet Extended Release
20 meq PO DAILY
cyanocobalamin (vitamin B-12) 500 mcg Tablet
500 mcg PO DAILY
losartan 25 mg tablet
25 mg PO DAILY
Eliquis 5 MG tablet
5 mg PO BID
gabapentin 100 mg Capsule
100 mg PO TID
Aranesp (in polysorbate) 200 mcg/0.4 mL Syringe
200 mcg SC DAILYPRN PRN (Reason: Hgb<11)
furosemide 40 mg Tablet
40 mg PO DAILY
polyethylene glycol 3350 [Miralax] 17 gram Powder In Packet
17 g PO DAILYPRN PRN (Reason: constipation)
albuterol sulfate 90 mcg/actuation Hfa Aerosol Inhaler
2 puff INHALATION R Q6HPRN PRN (Reason: sob)
sennosides-docusate sodium 8.6-50 mg tablet
1 tab-cap PO HS
ferrous sulfate 325 mg (65 mg iron) tablet
325 mg PO DAILY
cefazolin 10 gram Recon Soln
2 g IV Q8H 42 Days Qty: 10 0RF
Rx Instructions:
Continue 6 weeks of IV cefazolin 2g IV q8 through 05/30/24
metoprolol succinate 25 mg Tablet Extended Release 24 Hr
25 mg PO HS Qty: 30 1RF
metoprolol succinate 50 mg Tablet Extended Release 24 Hr
50 mg PO .daily in the morning Qty: 30 1RF
Rx Instructions:
50 mg daily in the morning
acetaminophen 500 mg Tablet
1,000 mg PO [id number] PRN (Reason: mild pain) Qty: 0 0RF
Activity Restrictions/Additional Instructions:
Continue your antibiotics as planned. Return if worse otherwise
Interventions
Interventions:
*Risk Screen - Suicide Last Done: 05/11/24 16:04
*General Assessment Last Done: 05/11/24 16:04
*Neglect/Abuse Screening Last Done: 05/11/24 16:04
*Nursing Disposition Last Done: 05/11/24 17:06
Discharge Date and Time
Discharge Date/Time: 05/11/24 17:07
Print Language: BURKINAN
--- NOTE | 2024-05-11 16:31 | VATNOTE ---
Called to assess bleeding PICC line. PICC line place at [facility] on 04/18/24 for 6 weeks of antibiotics. At the time of insertion PICC had 0cm external catheter length. At time of inspection PICC line now has an external catheter length
of 2cm. Dressed and secured in sterile fashion. Flushed with 10 mls NSS. Brisk blood return and no further bleeding noted. Recommended chest x-ray to make sure picc tip remains in the SVC.
== END 2024-05-11 17:07 | disposition home or self-care (01) ==
LOC: EMR 16:00
PROVIDERS: EMERGENCY PHYSICIAN Student in an Organized Health Care Education/Training Program; FAMILY PHYSICIAN Physician Assistant Medical
DX: T82.838A Hemorrhage due to vascular prosthetic devices, implants and grafts, initial encounter (principal); Y83.8 Other surgical procedures as the cause of abnormal reaction of the patient, or of later complication, without mention of misadventure at the time of the procedure; E11.9 Type 2 diabetes mellitus without complications; E03.9 Hypothyroidism, unspecified; I38 Endocarditis, valve unspecified; Z87.891 Personal history of nicotine dependence; Z90.49 Acquired absence of other specified parts of digestive tract; Z98.51 Tubal ligation status
CPT/HCPCS: 99283; 71046

== ENCOUNTER 2024-05-24 14:43 | Inpatient (IN) | payer MEDICARE, BC, SELFPAY ==
[2024-05-24 14:57] VITALS: BMI 28.0
[2024-05-24 15:05] VITALS: BP 116/68
--- NOTE | 2024-05-24 15:22 | CM ---
Reviewed chart. Met with Mrs. Castillo to review discharge plans. She states prior to admission she resides with her spouse in a two story home with three steps to enter. She states she has a first floor set-up. She states prior to admission she
ambulated with a three wheeled walker. She is independent with adl's. She states she has a three wheeled walker and single point cane at home. She states she has a prescription plan and uses [facility]. She states they are planning to move into
[facility] soon. Will check her co-pay for Dofetilide. She will need a three day script to be sent to . Pharmacy to take home with her. Medical work-up in progress. The discharge plan is to return home with her spouse when
medically stable.
--- NOTE | 2024-05-24 15:48 | W.PN.CARDCBS ---
Addendum entered and electronically signed by Mukesh Domingo MD 05/24/24 17:05:
I saw and examined the patient.
The Administrative Assistant Office Manager's note was reviewed and I agree with the note.
Comment: Briefly, 84-year-old woman past medical history of persistent atrial fibrillation who is presenting for Tikosyn loading
Plan to start dofetilide 250 mcg twice daily
Monitor on telemetry
Serial ECGs to reassess QTc
Daily BMP and repeat electrolytes as needed
Discussed with patient that if she remains in atrial fibrillation on we will arrange for direct-current cardioversion
Continue Eliquis for cardioembolic prophylaxis
Original Note:
Today's Communication / Plan
-
Awaiting labs
Tikosyn loading
Cardioversion if remains in A-fib
Continue Eliquis, no missed doses
Impression / Plan
-
*Please refer to office note dated 05/20/2024 to use as H&P*
PCP: Nannette Louise PA-C
Inspector Tubes: Dr. Maria Del Rosario Cortes
EP: Dr. Jose Eduardo Cortes
Impression:
Elective admission for Tikosyn initiation
Symptomatic persistent atrial fibrillation
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
History of PVI 2020
NICM EF 40-45%
Chronic LBBB
Moderate to severe MR by TTE 07/23/22, but more mild to moderate by LYNETTE 08/22/22
Aortic sclerosis without stenosis
HTN
Hyperlipidemia
History of multiple spine fractures s/p back surgery at [facility] 10/2022 with chronic infection
MSSA septic bursitis 04/2024
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
BORIS w/ CPAP
GERD
H/o bowel obstruction
Hypothyroidism
Exercise mibi 06/06/19: Completed 6 minutes Josesito protocol for 107% MPHR and abnormal ECG with 1.[address] depression II, III, aVF that did not improve until 2 min into recovery, but there was normal perfusion imaging
Cardiac catheterization 08/22/2022:�Nonobstructive coronary artery disease with only minor luminal irregularity, Normal/near normal LVEDP measuring 15 mmHg
Echo 10/04/20: EF 52%, possible mild abnormal relaxation, mild MR
ECHO 07/23/22:�EF 40 to 45%, mild global hypokinesis, stage I diastolic dysfunction, severely dilated left atrium, moderate to severe central mitral regurgitation, mild to moderate AAS with peak/mean gradients 19/13 mmHg, HERMINIA 1.3 cm�, mild TR, PAP 45
to 50 mmHg
LYNETTE 08/22/2022:�EF 45%, mildly reduced systolic function.� Mild to moderate central MR.
Echo 01/07/23: EF 46%, stage II diastolic dysfunction, mod to sev MR, mild peak/mean 16/10 mmHg, mild to mod TR with PAP 62 mmHg
Echo 11/19/2023: EF 48%, mild cLVH, stage I diastolic dysfunction, mild MR, mild with peak/mean gradients 18/10 mmHg, mild AI
Plan:
-She was initially scheduled for Tikosyn loading 04/2024, however on arrival was noted to have MSSA septic bursitis requiring IV antibiotic course therefore Tikosyn was deferred at that time.
-She has now been back on her maintenance doxycycline and presents for Tikosyn loading.
-Awaiting labs.
-EKG atrial fibrillation with PVCs and QTc measuring 469 ms
-continue eliquis. no missed doses of eliquis as OP per patient. if remains in afib on 05/26 would plan for CV.
-Continue outpatient Toprol. May need to decrease dosing with addition of Tikosyn
-Appears euvolemic. continue OP lasix
-will follow
-d/w nursing
Progress Note - Inspector Tubes
Subjective
Date of Service: May 24, 2024
Reports feeling fatigued. Reports dyspnea on exertion
Objective
Vital Signs and I&O:
Vital Signs
Temp Pulse Resp BP Pulse Ox
98.2 F 90 18 116/68 97
05/24/24 15:05 05/24/24 15:15 05/24/24 15:05 05/24/24 15:05 05/24/24 15:05
Vital Signs
Temp Pulse Resp BP Pulse Ox
98.2 F 90 18 116/68 97
05/24/24 15:05 05/24/24 15:15 05/24/24 15:05 05/24/24 15:05 05/24/24 15:05
Physical Exam
Physical Exam
GEN: No distress, awake, alert, oriented x3
HEENT: supple, anicteric, mmm, EOMI
LUNGS: CTA bilaterally, no wheezes/rales
CV: irreg, S1/S2, no murmur
ABD: soft, BS+, NT/ND
EXT: No cyanosis, clubbing, edema
NEURO: Gross non-focal
SKIN: Warm, pink, dry. No rash. Blue/garibay pigmentation to bilateral lower extremities
[2024-05-24 16:00] LABS: % Basophils 0.9 % (0-2); % Eosinophils 5.3 % (0-6); % Immature Granulocytes 0.4 % (0-0.5); % Lymphocytes 22.2 % (20.5-51.1); % Neutrophils 63.2 % (42.2-75.2); Absolute Basophils 0.1 10^3/uL (0-0.2); Absolute Eosinophils 0.3 10^3/uL (0-0.7); Absolute Lymphocytes 1.2 10^3/uL (1.2-3.4); Absolute Monocytes 0.4 10^3/uL (0.1-0.6); Absolute Neutrophils 3.5 10^3/uL (1.4-6.5); Hematocrit 35.5 % (37.0-47.0); Hemoglobin 11.1 g/dL (12.0-16.0); Mean Corp Hgb Conc. 31.3 g/dL (33.0-37.0); Mean Corpuscular Volume 92.7 fL (81.0-99.0); Mean Platelet Volume 9.2 fL (7.4-10.4); Nucleated Red Blood Cells % 0 %; Platelet Count 220 10^3/uL (130-400); Red Blood Cell Count 3.83 10^6/uL (4.20-5.40); Red Cell Dist. Width 15.8 % (11.5-14.5); White Blood Cell Count 5.5 10^3/uL (4.8-10.8)
--- NOTE | 2024-05-24 16:00 | W.CARD.TIKOS ---
Initiate Tikosyn
-
I verify that the patient has not taken any verapamil (Isoptin/Calan), ketoconazole (Nizoral), cimetidine (Tagamet), trimethoprim (Trimpex), trimethoprim/sulfamethoxazole (Bactrim), megesterol (Megace), prochlorperazine (Compazine),
hydrochlorothiazide (HCTZ), dolutegravir (Tivicay) or any Class I or Class III anti-arrhythmic within the last three days
AND
I verify that the patient has not taken amiodarone within the last THREE months, or that the patient's amiodarone plasma concentration is <0.3 mcg/mL.
Does patient have a Ventricular Conduction Abnormality: Yes
I have assessed the baseline QTc interval (using QT for heart rate less than 60 bpm) and deemed the patient is appropriate for Dofetilide therapy. I understand that Tikosyn is contraindicated if the QTc is >440msec (500msec in patients with
ventricular conduction abnormalities).
Baseline QTc (in msec): 469
QTc interval is greater than 440msec without conduction abnormality OR greater than 500msec with a conduction abnormality, but acceptable to proceed per Cardiology attending.
Reason for Administration with Prolonged QTc: Bundle Branch Block
Ordering Physician: Marty Cortes
[2024-05-24 16:22] LABS: ALT (SGPT) < 10 U/L (0-35); AST (SGOT) 23 U/L (14-36); Albumin 3.9 g/dl (3.5-5.0); Alkaline Phosphatase 61 U/L (38-126); Blood Urea Nitrogen 33 mg/dl (7-17); Calcium 8.6 mg/dl (8.4-10.2); Carbon Dioxide 30 mmol/L (22-30); Chloride 100 mmol/L (98-107); Estimated Creatinine Clearance 40 ml/min; Glucose 111 mg/dl (70-99); Magnesium 1.7 mg/dl (1.6-2.3); Potassium 4.2 mmol/L (3.5-5.1); Sodium 140 mmol/L (135-145); Total Bilirubin 0.2 mg/dl (0.2-1.3); Total Protein 7.7 g/dl (6.3-8.2); eGFR 49.86
[2024-05-24 16:52] LABS: TSH 0.06 uIU/ml (0.47-4.68)
[2024-05-24] MEDS: TOPROL XL PO (17:31)
[2024-05-24] MEDS: TIKOSYN 250 MCG PO (17:34)
[2024-05-24 18:34] VITALS: BMI 28.0
[2024-05-24 18:54] VITALS: BP 125/61
[2024-05-24] MEDS: SENOKOT-S 1 TABLET PO (21:09)
[2024-05-24] MEDS: ELIQUIS 5 MG PO (21:09)
[2024-05-24] MEDS: VITAMIN B-12 500 MCG PO (21:10)
[2024-05-24] MEDS: OSCAL CAL 500 500 MG PO (21:10)
[2024-05-24] MEDS: TOPROL XL 25 MG PO (21:10)
[2024-05-24] MEDS: VITAMIN D3 (cholecalciferol) 50 MCG PO (21:10)
[2024-05-24 21:12] VITALS: BP 125/90
--- NOTE | 2024-05-24 21:48 | PTCARENOTE ---
Pt received at change of shift. Afib on tele with HR 70s-80s at rest and in the 120s with ambulation. Pt with complaints of SOB which she states is not new for her, POX 96% on RA. EKG obtained 2 hours post dose #1 of Tikosyn, QTc 529 which is
within appropriate range for pt. Pt ambulating independently with rolling walker without difficulty. Can make needs known. Call parker within reach.
--- NOTE | 2024-05-25 02:07 | DOWNTIME ---
There was a [employer] Client Travel Money Advisor Downtime on 05/25/2024 from 0100 to 05/25/2023 at 0205 . Downtime documentation of patient's care, including medication administrations, has been reconciled in the electronic record per guidelines. Refer to the
patient's paper chart under the miscellaneous tab to see printed paper medication records and downtime forms.
[2024-05-25] MEDS: SYNTHROID 125 MCG PO (04:02)
[2024-05-25 04:03] VITALS: BP 128/62
[2024-05-25] MEDS: TIKOSYN 250 MCG PO ×2 (04:03→15:46)
[2024-05-25 04:24] VITALS: BMI 28.1
[2024-05-25 04:48] LABS: Hematocrit 32.3 % (37.0-47.0); Hemoglobin 10.2 g/dL (12.0-16.0); Mean Corp Hgb Conc. 31.6 g/dL (33.0-37.0); Mean Corpuscular Hgb 28.8 pg (27.0-31.0); Mean Corpuscular Volume 91.2 fL (81.0-99.0); Mean Platelet Volume 9.5 fL (7.4-10.4); Platelet Count 194 10^3/uL (130-400); Red Blood Cell Count 3.54 10^6/uL (4.20-5.40); Red Cell Dist. Width 15.9 % (11.5-14.5); White Blood Cell Count 4.6 10^3/uL (4.8-10.8)
[2024-05-25 05:15] LABS: Blood Urea Nitrogen 31 mg/dl (7-17); Calcium 8.5 mg/dl (8.4-10.2); Carbon Dioxide 31 mmol/L (22-30); Chloride 102 mmol/L (98-107); Estimated Creatinine Clearance 40 ml/min; Glucose 99 mg/dl (70-99); Potassium 4.2 mmol/L (3.5-5.1); Sodium 141 mmol/L (135-145); eGFR 49.86
[2024-05-25 07:25] VITALS: BP 125/69
[2024-05-25] MEDS: KCL 20 MEQ PO (08:12)
[2024-05-25] MEDS: FEOSOL 325 MG PO (08:12)
[2024-05-25] MEDS: TOPROL XL 50 MG PO (08:13)
[2024-05-25] MEDS: PROTONIX 40 MG PO (08:13)
[2024-05-25] MEDS: LASIX 40 MG PO (08:13)
[2024-05-25] MEDS: COZAAR 25 MG PO (08:13)
[2024-05-25] MEDS: ELIQUIS 5 MG PO ×2 (08:13→20:55)
[2024-05-25] MEDS: LIPITOR 10 MG PO (08:13)
--- NOTE | 2024-05-25 08:45 | W.PN.CARDCBS ---
Addendum entered and electronically signed by Mukesh Domingo MD 05/25/24 09:20:
I saw and examined the patient.
The Dyed [employer] Stock Blower Feeder's note was reviewed and I agree with the note.
Comment: Briefly, 84-year-old woman past medical history of persistent atrial fibrillation who presented for Tikosyn loading
Cont dofetilide 250 mcg twice daily
Monitor on telemetry
Serial ECGs to reassess QTc, QT interval overestimated on ECG this AM, ok to continue current dosing and monitor
Daily BMP
Discussed with patient that if she remains in atrial fibrillation on we will arrange for direct-current cardioversion
Continue Eliquis for cardioembolic prophylaxis
Original Note:
Today's Communication / Plan
-
continue tikosyn 250mcg Q12H
follow QTc
continue eliquis
for CV in AM if does not convert
Impression / Plan
-
*Please refer to office note dated 05/20/2024 to use as H&P*
PCP: Nannette Louise PA-C
Air Liaison And Special Staff: Dr. Maria Del Rosario Cortes
EP: Dr. Jose Eduardo Cortes
Impression:
Elective admission for Tikosyn initiation
Symptomatic persistent atrial fibrillation
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
History of PVI 2020
NICM EF 40-45%
Chronic LBBB
Moderate to severe MR by TTE 07/23/22, but more mild to moderate by LYNETTE 08/22/22
Aortic sclerosis without stenosis
HTN
Hyperlipidemia
History of multiple spine fractures s/p back surgery at [facility] 10/2022 with chronic infection
MSSA septic bursitis 04/2024
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
BORIS w/ CPAP
GERD
H/o bowel obstruction
Hypothyroidism
Exercise mibi 06/06/19: Completed 6 minutes Josesito protocol for 107% MPHR and abnormal ECG with 1.[address] depression II, III, aVF that did not improve until 2 min into recovery, but there was normal perfusion imaging
Cardiac catheterization 08/22/2022:�Nonobstructive coronary artery disease with only minor luminal irregularity, Normal/near normal LVEDP measuring 15 mmHg
Echo 10/04/20: EF 52%, possible mild abnormal relaxation, mild MR
ECHO 07/23/22:�EF 40 to 45%, mild global hypokinesis, stage I diastolic dysfunction, severely dilated left atrium, moderate to severe central mitral regurgitation, mild to moderate AAS with peak/mean gradients 19/13 mmHg, HERMINIA 1.3 cm�, mild TR, PAP 45
to 50 mmHg
LYNETTE 08/22/2022:�EF 45%, mildly reduced systolic function.� Mild to moderate central MR.
Echo 01/07/23: EF 46%, stage II diastolic dysfunction, mod to sev MR, mild peak/mean 16/10 mmHg, mild to mod TR with PAP 62 mmHg
Echo 11/19/2023: EF 48%, mild cLVH, stage I diastolic dysfunction, mild MR, mild with peak/mean gradients 18/10 mmHg, mild AI
Plan:
-feeling well. no issues overnight
-continue tikosyn 250mcg Q12H. corrected QTc approximated at 490ms, follow.
-continue eliquis. no missed doses of eliquis as OP per patient. if remains in afib on 05/26 would plan for CV. NPO after midnight
-Continue outpatient Toprol. May need to decrease dosing with addition of Tikosyn, will evaluate HR once back in SR
-Appears euvolemic. continue OP lasix
-5th dose of tikosyn will be 05/26 @4PM. for possible DC after if remains stable
Progress Note - Air Liaison And Special Staff
Subjective
Date of Service: May 25, 2024
no issues overnight. ambulatory around unit
Objective
Labs:
05/25/24 04:15
05/25/24 04:15
Labs
Hgb 10.2 g/dL (12.0-16.0) L 05/25/24 04:15
Hct 32.3 % (37.0-47.0) L 05/25/24 04:15
Plt Count 194 10^3/uL (130-400) 05/25/24 04:15
Sodium 141 mmol/L (135-145) 05/25/24 04:15
Potassium 4.2 mmol/L (3.5-5.1) 05/25/24 04:15
BUN 31 mg/dl (7-17) H 05/25/24 04:15
Creatinine 1.1 mg/dL (0.6-1.0) H 05/25/24 04:15
Glucose 99 mg/dl (70-99) 05/25/24 04:15
Vital Signs and I&O:
Vital Signs
Temp Pulse Resp BP Pulse Ox
97.7 F 104 20 125/69 97
05/25/24 07:22 05/25/24 08:13 05/25/24 07:22 05/25/24 08:13 05/25/24 07:22
Vital Signs
Temp Pulse Resp BP Pulse Ox
97.7 F 104 20 125/69 97
05/25/24 07:22 05/25/24 08:13 05/25/24 07:22 05/25/24 08:13 05/25/24 07:22
Intake & Output
05/23/24 05/24/24 05/25/24 05/26/24
07:59 07:59 07:59 07:59
Intake Total 480 / 480
Balance 480 / 480
Physical Exam
Physical Exam
GEN: No distress, awake, alert, oriented x3
HEENT: supple, anicteric, mmm, EOMI
LUNGS: CTA bilaterally, no wheezes/rales
CV: irreg, S1/S2, no murmur
ABD: soft, BS+, NT/ND
EXT: No cyanosis, clubbing, edema
NEURO: Gross non-focal
SKIN: Warm, pink, dry. No rash.
--- NOTE | 2024-05-25 10:10 | PTCARENOTE ---
PT AOx3, no complaints of pain or discomfort. Afib on tele monitor, VSS. Pt ambulating in hallway. Call parker within reach.
[2024-05-25 11:20] VITALS: BP 126/76
[2024-05-25 11:24] LABS: Free T4 1.96 ng/dl (0.78-2.19)
[2024-05-25] MEDS: VIBRAMYCIN 100 MG PO ×2 (11:48→20:56)
--- NOTE | 2024-05-25 15:09 | CM ---
Reviewed chart. Met with Mrs. Castillo to review discharge plans. Telephone call to her pharmacy benefit [facility] ,([phone]) to check on co-pay for Dofetilide 250 mcg bid. Her co-pay for mail order for 90 would be $29.99 and for retail
pharmacy for 90 day supply and her co-pay would be $179.99 for 90 day supply. Good Rx coupon at [facility] is 33.00 for a one month supply. Gave her the Good RX coupon to do her first script by retail pharmacy and then go with mail order. Telephone call
to [facility] to check if they have Dofetilide 250 mcg in stock. [facility] has it in stock. Prior to admission she resides with her spouse in a two story home with three steps to enter. She has a first floor set-up. Prior to admission she
ambulates with three wheeled walker. She has a three wheeled walker and single point cane at home. She has a prescription plan with [facility] and uses [facility]. She is planning on moving to [facility] soon. Medical
work-up in progress. The discharge plan is to return home with her spouse when medically stable.
[2024-05-25 15:48] VITALS: BP 125/72
[2024-05-25 19:05] VITALS: BP 119/77
[2024-05-25] MEDS: VITAMIN B-12 500 MCG PO (20:54)
[2024-05-25] MEDS: SENOKOT-S 1 TABLET PO (20:55)
[2024-05-25] MEDS: OSCAL CAL 500 500 MG PO (20:55)
[2024-05-25] MEDS: TOPROL XL 25 MG PO (20:55)
[2024-05-25] MEDS: VITAMIN D3 (cholecalciferol) 50 MCG PO (20:56)
[2024-05-25 22:42] VITALS: BP 115/66
--- NOTE | 2024-05-25 23:56 | PTCARENOTE ---
Assumed care of the pt @1900 Pt is AAOx3 denies pain A fib on the monitor VSS ambulates independently in the room with walker. Takes pills whole with applesauce. Pt was instructed on NPO status after midnight for possible procedure.
[2024-05-26] MEDS: TIKOSYN 250 MCG PO ×2 (03:57→16:01)
[2024-05-26] MEDS: SYNTHROID 125 MCG PO (03:57)
[2024-05-26 04:06] VITALS: BP 120/83
[2024-05-26 04:08] VITALS: BMI 28.0
[2024-05-26 04:54] LABS: Blood Urea Nitrogen 32 mg/dl (7-17); Calcium 9.1 mg/dl (8.4-10.2); Carbon Dioxide 36 mmol/L (22-30); Chloride 99 mmol/L (98-107); Estimated Creatinine Clearance 40 ml/min; Glucose 104 mg/dl (70-99); Potassium 4.4 mmol/L (3.5-5.1); Sodium 140 mmol/L (135-145); eGFR 49.86
[2024-05-26 07:37] VITALS: BP 125/70
--- NOTE | 2024-05-26 07:44 | W.PN.CARDCBS ---
Addendum entered and electronically signed by Enedina De La Cruz PA-C 05/26/24 16:58:
[id number]
Addendum entered and electronically signed by Marty Cortes MD 05/26/24 11:05:
Patient seen, interviewed and examined by me.
She tells me she is feeling fine this morning. She is very happy that she has converted to sinus rhythm while on antiarrhythmic drug rather than needing cardioversion this morning.
Well-appearing, no acute distress
Regular rate and rhythm with some ectopy with normal S1 and S2, no S3 no S4. There is a grade 1/6 apical holosystolic murmur and no rubs. PMI is normally placed.
Lungs are clear to auscultation bilaterally without wheezes rales or rhonchi.
Abdomen soft nontender nondistended with normoactive bowel sounds
Extremities show trace pretibial edema bilaterally no clubbing or cyanosis.
Neurologic exam is grossly nonfocal.
I have personally reviewed telemetry, she has converted from atrial fibrillation to sinus rhythm (AM 05/26/24) with occasional PACs and some sinus pauses, but nothing longer than 1.5 seconds
EKG from this morning personally reviewed by me demonstrates sinus rhythm with PACs, left bundle branch block. Corrected QT interval is 494 ms.
Continue dofetilide at 250 mcg every 12 hrs.
Will follow ECG after her fifth dose later today and if corrected QT interval remained stable she can be discharged to home on stable dose of dofetilide 250 mg every 12 hours
Maintain oral anticoagulation, Eliquis 5 mg twice daily, maintain uninterrupted oral anticoagulation given recent conversion from A-fib to sinus rhythm AM 05/26/24
Heart rates are a little low in sinus rhythm, will decrease Toprol-XL to 50 mg daily.
All of her questions have been answered, will assess EKG following her fifth dose of dofetilide later today and if QTc is stable, discharge to home
Original Note:
Today's Communication / Plan
-
Continue Tikosyn 250 mcg Q12H
Decrease Toprol to 50mg daily.
Continue Eliquis 5mg BID
Continue to follow QTc.
For d/c this evening after 5th dose of Tikosyn
Impression / Plan
-
*Please refer to office note dated 05/20/2024 to use as H&P*
PCP: Nannette Louise PA-C
Traveling Inventory Associate: Dr. Maria Del Rosario Cortes
EP: Dr. Jose Eduardo Cortes
Impression:
Elective admission for Tikosyn initiation
Symptomatic persistent atrial fibrillation
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
History of PVI 2020
NICM EF 40-45%
Chronic LBBB
Moderate to severe MR by TTE 07/23/22, but more mild to moderate by LYNETTE 08/22/22
Aortic sclerosis without stenosis
HTN
Hyperlipidemia
History of multiple spine fractures s/p back surgery at [facility] 10/2022 with chronic infection
MSSA septic bursitis 04/2024
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
BORIS w/ CPAP
GERD
H/o bowel obstruction
Hypothyroidism
Exercise mibi 06/06/19: Completed 6 minutes Josesito protocol for 107% MPHR and abnormal ECG with 1.[address] depression II, III, aVF that did not improve until 2 min into recovery, but there was normal perfusion imaging
Cardiac catheterization 08/22/2022:�Nonobstructive coronary artery disease with only minor luminal irregularity, Normal/near normal LVEDP measuring 15 mmHg
Echo 10/04/20: EF 52%, possible mild abnormal relaxation, mild MR
ECHO 07/23/22:�EF 40 to 45%, mild global hypokinesis, stage I diastolic dysfunction, severely dilated left atrium, moderate to severe central mitral regurgitation, mild to moderate AAS with peak/mean gradients 19/13 mmHg, HERMINIA 1.3 cm�, mild TR, PAP 45
to 50 mmHg
LYNETTE 08/22/2022:�EF 45%, mildly reduced systolic function.� Mild to moderate central MR.
Echo 01/07/23: EF 46%, stage II diastolic dysfunction, mod to sev MR, mild peak/mean 16/10 mmHg, mild to mod TR with PAP 62 mmHg
Echo 11/19/2023: EF 48%, mild cLVH, stage I diastolic dysfunction, mild MR, mild with peak/mean gradients 18/10 mmHg, mild AI
Plan:
-She has h/o symptomatic persistent atrial fibrillation. Admitted for Tikosyn loading.
-Continues on Tikosyn 250 mcg Q12H. QTc stable at 494 ms this AM in SR. Continue to follow.
-Converted to SR this AM. CV cancelled.
-HR in the 60s, however at times dropping lower into the 50s. Will decrease Toprol to 50mg daily and continue to follow. May need to be reduced further pending HR trends.
-Continue Eliquis 5mg BID. No missed doses.
-Continue PO lasix 40mg daily. Appears euvolemic.
-Plan is for d/c this PM after 5th dose of Tikosyn (@ 1600) if QTc remains stable.
-Follow up arranged.
Progress Note - Traveling Inventory Associate
Subjective
Date of Service: May 26, 2024
Feeling great. No complaints.
Objective
Labs:
05/25/24 04:15
05/26/24 04:13
Labs
Hgb 10.2 g/dL (12.0-16.0) L 05/25/24 04:15
Hct 32.3 % (37.0-47.0) L 05/25/24 04:15
Plt Count 194 10^3/uL (130-400) 05/25/24 04:15
Sodium 140 mmol/L (135-145) 05/26/24 04:13
Potassium 4.4 mmol/L (3.5-5.1) 05/26/24 04:13
BUN 32 mg/dl (7-17) H 05/26/24 04:13
Creatinine 1.1 mg/dL (0.6-1.0) H 05/26/24 04:13
Glucose 104 mg/dl (70-99) H 05/26/24 04:13
Vital Signs and I&O:
Vital Signs
Temp Pulse Resp BP Pulse Ox
97.3 F 94 16 120/83 97
05/26/24 04:07 05/26/24 04:07 05/26/24 04:07 05/26/24 04:06 05/26/24 04:07
Vital Signs
Temp Pulse Resp BP Pulse Ox
97.3 F 94 16 120/83 97
05/26/24 04:07 05/26/24 04:07 05/26/24 04:07 05/26/24 04:06 05/26/24 04:07
Intake & Output
05/24/24 05/25/24 05/26/24 05/27/24
06:59 06:59 06:59 06:59
Intake Total 480 / 480 120 / 120
Balance 480 / 480 120 / 120
Physical Exam
Physical Exam
GEN: No distress, awake, alert, oriented x3
HEENT: supple, anicteric, mmm, EOMI
LUNGS: CTA bilaterally, no wheezes/rales
CV: regular, S1/S2, no murmur
EXT: No cyanosis, clubbing, edema
NEURO: Gross non-focal
SKIN: Warm, pink, dry. No rash.
--- NOTE | 2024-05-26 07:55 | PTCARENOTE ---
Assumed care. Patient appeared to be in NSR with PAC's, confirmed with EKG.
[2024-05-26] MEDS: LASIX 40 MG PO (08:15)
[2024-05-26] MEDS: LIPITOR 10 MG PO (08:16)
[2024-05-26] MEDS: TOPROL XL 50 MG PO (08:16)
[2024-05-26] MEDS: PROTONIX 40 MG PO (08:16)
[2024-05-26] MEDS: KCL 20 MEQ PO (08:16)
[2024-05-26] MEDS: COZAAR 25 MG PO (08:16)
[2024-05-26] MEDS: ELIQUIS 5 MG PO (08:16)
[2024-05-26] MEDS: VIBRAMYCIN 100 MG PO (08:16)
[2024-05-26] MEDS: FEOSOL 325 MG PO (08:16)
[2024-05-26 11:29] VITALS: BP 101/59
--- NOTE | 2024-05-26 13:04 | CM ---
Reviewed chart. Met with Mrs. Castillo to review discharge plans. She states she is feeling well and maybe able to go home soon. Telephone call to [facility] to confirm Dofetilide 250 mcg is in stock. Prior to admission she resides with her spouse
in a two story home with three steps to enter. She has a first floor set-up. Prior to admission she ambulated with a three wheeled walker and independent with ADL's. She has a three wheeled walker and a single point cane at home. She has a
prescription plan with [facility] an uses [facility]. Medical work-up in progress. The discharge plan is to return home with her spouse when medically stable.
[2024-05-26 15:51] VITALS: BP 113/57
--- NOTE | 2024-05-26 16:57 | W.DS.TRANS ---
DC Summary - Planning Specialist
-
Discharge Instructions:
Discharge Diagnosis/Procedures afib, tikosyn load
Diet Low Cholesterol,2 Gram Sodium
Activity As tolerated
Bathing Restrictions None
Other Services VN
Specialty Instructions Weigh Daily
Instructions:
Stand-Alone Forms:
Changes to Home Medications: Yes
Discharge Medications:
DC Medications w/original date entered in [facility]
levothyroxine 125 mcg tablet 125 mcg PO DAILY@0400 Thyroid 12/01/12
cholecalciferol (vitamin D3) 50 mcg (2,000 unit) tablet 2,000 unit PO DAILY Supplement 12/02/12
calcium carbonate 600 mg PO DAILY Supplement 12/10/20
atorvastatin 10 mg tablet (Lipitor) 10 mg PO DAILY High cholesterol 07/23/22
omeprazole 20 mg tablet,delayed release 20 mg PO DAILY gerd 07/23/22
apixaban 5 mg tablet (Eliquis) 5 mg PO BID Blood Clot Prevention/Tx 01/06/23
cyanocobalamin (vitamin B-12) 500 mcg tablet 500 mcg PO DAILY Supplement 01/06/23
losartan 25 mg tablet 25 mg PO DAILY Blood Pressure 01/06/23
potassium chloride 10 mEq tablet,extended release 20 meq PO DAILY Electrolyte Repletion 01/06/23
darbepoetin joseluis in polysorbat 200 mcg/0.4 mL in polysorbate injection syringe (Aranesp) 200 mcg SC DAILYPRN PRN Hgb<11 07/15/23
gabapentin 100 mg capsule 100 mg PO TID Neurological Condition 07/15/23
albuterol sulfate 90 mcg/actuation aerosol inhaler 2 puff inhalation R Q6HPRN PRN sob 03/16/24
furosemide 40 mg tablet 40 mg PO DAILY Fluid Retention/Swelling 03/16/24
polyethylene glycol 3350 17 gram oral powder packet (Miralax) 17 g PO DAILYPRN PRN constipation 03/16/24
ferrous sulfate 325 mg (65 mg iron) tablet 325 mg PO DAILY Supplement 04/19/24
sennosides 8.6 mg-docusate sodium 50 mg tablet 1 tab-cap PO HS Gastrointestinal Issue 04/19/24
acetaminophen 500 mg tablet 1,000 mg (2 x 500 mg) PO [id number] PRN mild pain #0 tabs 04/20/24
metoprolol succinate 50 mg tablet,extended release 24 hr 50 mg PO .daily in the morning #30 tabs 04/20/24
doxycycline hyclate 100 mg capsule 100 mg PO BID 05/25/24
dofetilide 250 mcg capsule 250 mcg PO Q12H #60 caps 05/26/24
Home Medication Changes
dofetilide is new
metoprolol dose reduced to 50mg daily
Pending Results: No
--- NOTE | 2024-05-26 17:47 | PTCARENOTE ---
Discharge teaching completed, patient verbalized understanding. IV and telemetry removed. will be driving patient home later tonight after EKG at 1800
--- NOTE | 2024-05-26 18:19 | PTCARENOTE ---
EKG WNL. Patient discharged to home and escorted to [facility], her is driving her home today
== END 2024-05-26 18:24 | disposition home or self-care (01) | DRG 310 ==
LOC: IVU 14:43
PROVIDERS: Physician Assistant; ADMITTING PHYSICIAN Nuclear Medicine Nuclear Cardiology
DX: I48.19 Other persistent atrial fibrillation (principal); Z79.890 Hormone replacement therapy; Z79.01 Long term (current) use of anticoagulants; I44.7 Left bundle-branch block, unspecified; I70.0 Atherosclerosis of aorta; I10 Essential (primary) hypertension; E78.5 Hyperlipidemia, unspecified; Z22.321 Carrier or suspected carrier of Methicillin susceptible Staphylococcus aureus; G47.33 Obstructive sleep apnea (adult) (pediatric); K21.9 Gastro-esophageal reflux disease without esophagitis; E03.9 Hypothyroidism, unspecified; I42.8 Other cardiomyopathies; I49.3 Ventricular premature depolarization
CPT/HCPCS: 80048; 80053; 83735; 84439; 84443; 85025; 85027; 87070; 93005

== ENCOUNTER → 2024-07-07 09:08 | Outpatient (REF) | payer MEDICARE, BC, SELFPAY | LOC: CLAB 09:08 | PROVIDERS: ATTENDING PHYSICIAN Internal Medicine Infectious Disease | DX: M71.162 Other infective bursitis, left knee (principal) | CPT/HCPCS: 87070; 87205 ==

== ENCOUNTER → 2024-07-14 10:09 | Outpatient (REF) | payer MEDICARE, BC, SELFPAY ==
[2024-07-14 10:34] VITALS: BP 118/81; BP_SYST 75
== END ==
LOC: RADI 10:09
PROVIDERS: ATTENDING PHYSICIAN Internal Medicine Infectious Disease; FAMILY PHYSICIAN Physician Assistant Medical
DX: M71.162 Other infective bursitis, left knee (principal)
CPT/HCPCS: 36573; C1750

== ENCOUNTER → 2024-07-18 14:59 | Outpatient (REF) | payer MEDICARE, BC, SELFPAY | LOC: HWRAD 14:59 | PROVIDERS: ATTENDING PHYSICIAN Physician Assistant Medical; FAMILY PHYSICIAN Family Medicine; REFERRING PHYSICIAN Physician Assistant Medical | DX: M46.26 Osteomyelitis of vertebra, lumbar region (principal); Z98.1 Arthrodesis status; S32.050D Wedge compression fracture of fifth lumbar vertebra, subsequent encounter for fracture with routine healing | CPT/HCPCS: 72128; 72131 ==

== ENCOUNTER → 2024-08-02 07:19 | Outpatient (REF) | payer MEDICARE, BC, SELFPAY | LOC: MRI 07:19 | PROVIDERS: ATTENDING PHYSICIAN Physician Assistant Medical; FAMILY PHYSICIAN Physician Assistant Medical | DX: M46.26 Osteomyelitis of vertebra, lumbar region (principal); M46.46 Discitis, unspecified, lumbar region; S32.010A Wedge compression fracture of first lumbar vertebra, initial encounter for closed fracture; Z98.1 Arthrodesis status; S32.050D Wedge compression fracture of fifth lumbar vertebra, subsequent encounter for fracture with routine healing | CPT/HCPCS: 72158; A9575 ==

== ENCOUNTER → 2024-08-24 15:58 | Outpatient (REF) | payer MEDICARE, BC, SELFPAY | LOC: OLABPV 15:58 | PROVIDERS: ATTENDING PHYSICIAN Internal Medicine Infectious Disease | DX: M71.162 Other infective bursitis, left knee (principal) | CPT/HCPCS: 87070; 87075; 87147; 87205 ==

== ENCOUNTER → 2024-08-31 11:29 | Outpatient (REF) | payer MEDICARE, BC, SELFPAY | LOC: OLABPV 11:29 | PROVIDERS: ATTENDING PHYSICIAN Internal Medicine Infectious Disease | DX: M71.162 Other infective bursitis, left knee (principal); T84.50XA Infection and inflammatory reaction due to unspecified internal joint prosthesis, initial encounter | CPT/HCPCS: 87070; 87205 ==

== ENCOUNTER → 2024-09-12 13:38 | Outpatient (REF) | payer MEDICARE, BC, SELFPAY | LOC: PAVMRI 13:38 | PROVIDERS: ATTENDING PHYSICIAN Orthopaedic Surgery; FAMILY PHYSICIAN Physician Assistant Medical | DX: M70.52 Other bursitis of knee, left knee (principal); Z96.652 Presence of left artificial knee joint | CPT/HCPCS: 73723; A9575 ==

== ENCOUNTER → 2024-09-29 12:33 | Outpatient (REF) | payer MEDICARE, BC, SELFPAY | LOC: WOUND 12:33 | PROVIDERS: ATTENDING PHYSICIAN Surgery; FAMILY PHYSICIAN Physician Assistant Medical | DX: L97.222 Non-pressure chronic ulcer of left calf with fat layer exposed (principal); I73.00 Raynaud's syndrome without gangrene; I48.0 Paroxysmal atrial fibrillation; D64.9 Anemia, unspecified; Z96.653 Presence of artificial knee joint, bilateral | CPT/HCPCS: 11042; 99203 ==

== ENCOUNTER → 2024-10-06 09:23 | Outpatient (REF) | payer MEDICARE, BC, SELFPAY | LOC: WOUND 09:23 | PROVIDERS: ATTENDING PHYSICIAN Surgery; FAMILY PHYSICIAN Physician Assistant Medical | DX: L97.222 Non-pressure chronic ulcer of left calf with fat layer exposed (principal); I73.00 Raynaud's syndrome without gangrene; I48.0 Paroxysmal atrial fibrillation; D64.9 Anemia, unspecified; Z96.653 Presence of artificial knee joint, bilateral | CPT/HCPCS: 11042 ==

== ENCOUNTER → 2024-10-13 10:30 | Outpatient (REF) | payer MEDICARE, BC, SELFPAY | LOC: WOUND 10:30 | PROVIDERS: ATTENDING PHYSICIAN Surgery; FAMILY PHYSICIAN Physician Assistant Medical | DX: L97.222 Non-pressure chronic ulcer of left calf with fat layer exposed (principal); I73.00 Raynaud's syndrome without gangrene; I48.0 Paroxysmal atrial fibrillation; D64.9 Anemia, unspecified; Z96.653 Presence of artificial knee joint, bilateral | CPT/HCPCS: 11042 ==

== ENCOUNTER → 2024-11-03 09:16 | Outpatient (REF) | payer MEDICARE, BC, SELFPAY | LOC: WOUND 09:16 | PROVIDERS: ATTENDING PHYSICIAN Surgery; FAMILY PHYSICIAN Physician Assistant Medical | DX: L97.222 Non-pressure chronic ulcer of left calf with fat layer exposed (principal); I73.00 Raynaud's syndrome without gangrene; I48.0 Paroxysmal atrial fibrillation; D64.9 Anemia, unspecified; Z96.653 Presence of artificial knee joint, bilateral | CPT/HCPCS: 99212 ==

== ENCOUNTER → 2024-12-23 10:46 | Outpatient (REF) | payer MEDICARE, BC, SELFPAY ==
[2024-12-23 10:57] LABS: Hematocrit 37.4 % (37.0-47.0); Hemoglobin 12.1 g/dL (12.0-16.0); Mean Corp Hgb Conc. 32.4 g/dL (33.0-37.0); Mean Corpuscular Volume 95.4 fL (81.0-99.0); Nucleated Red Blood Cells % 0 %; Platelet Count 196 10^3/uL (130-400); Red Cell Dist. Width 14.1 % (11.5-14.5)
[2024-12-23 11:19] LABS: ALT (SGPT) 18 U/L (0-35); AST (SGOT) 30 U/L (14-36); Albumin 4.1 g/dl (3.5-5.0); Alkaline Phosphatase 48 U/L (38-126); Blood Urea Nitrogen 26 mg/dl (7-17); Calcium 9.2 mg/dl (8.4-10.2); Carbon Dioxide 34 mmol/L (22-30); Chloride 106 mmol/L (98-107); Glucose 91 mg/dl (70-99); Potassium 4.1 mmol/L (3.5-5.1); Sodium 143 mmol/L (135-145); Total Protein 7.5 g/dl (6.3-8.2); eGFR 55.90
[2024-12-23 11:23] LABS: C-Reactive Protein < 5.00 mg/L (0.0-10.00)
[2024-12-23 11:45] LABS: Vitamin D, 25-OH*** 114 ng/mL (30-80)
[2024-12-23 11:58] LABS: TSH 2.19 uIU/ml (0.47-4.68)
== END ==
LOC: OLABPV 10:46
PROVIDERS: ATTENDING PHYSICIAN Internal Medicine Infectious Disease; FAMILY PHYSICIAN Physician Assistant Medical
DX: E55.9 Vitamin D deficiency, unspecified (principal); E03.9 Hypothyroidism, unspecified; T14.8XXA Other injury of unspecified body region, initial encounter
CPT/HCPCS: 80053; 82306; 84443; 85025; 85652; 86140

== ENCOUNTER → 2025-01-17 15:24 | Outpatient (REF) | payer MEDICARE, BC, SELFPAY | LOC: CLAB 15:24 | PROVIDERS: ATTENDING PHYSICIAN Orthopaedic Surgery | DX: M25.48 Effusion, other site (principal) | CPT/HCPCS: 87070; 87075; 87205 ==

== ENCOUNTER → 2025-02-28 10:57 | Outpatient (REF) | payer MEDICARE, BC, SELFPAY ==
[2025-02-28 11:49] LABS: Hematocrit 37.0 % (37.0-47.0); Hemoglobin 11.7 g/dL (12.0-16.0); Mean Corp Hgb Conc. 31.6 g/dL (33.0-37.0); Mean Corpuscular Volume 98.9 fL (81.0-99.0); Nucleated Red Blood Cells % 0 %; Platelet Count 175 10^3/uL (130-400); Red Cell Dist. Width 12.8 % (11.5-14.5)
[2025-02-28 12:45] LABS: ALT (SGPT) 24 U/L (0-35); AST (SGOT) 31 U/L (14-36); Albumin 3.8 g/dl (3.5-5.0); Alkaline Phosphatase 40 U/L (38-126); Blood Urea Nitrogen 23 mg/dl (7-17); Calcium 8.4 mg/dl (8.4-10.2); Carbon Dioxide 34 mmol/L (22-30); Chloride 103 mmol/L (98-107); Glucose 94 mg/dl (70-99); HDL Cholesterol 61 mg/dl; LDL Cholesterol, Calculated 80 mg/dl; Potassium 4.2 mmol/L (3.5-5.1); Sodium 141 mmol/L (135-145); Total Protein 6.9 g/dl (6.3-8.2); Very Low Density Lipoprotein 23 mg/dl (0-30); eGFR > 60.00
[2025-02-28 13:19] LABS: Ferritin 170.0 ng/ml (11.1-264.0)
[2025-03-01 14:29] LABS: Vitamin D, 25-OH*** 98.1 ng/mL (30-80)
[2025-03-01 14:43] LABS: TSH 9.50 uIU/ml (0.47-4.68)
[2025-03-02 08:39] LABS: Glycohemoglobin (HgbA1c) 5.3 % (4.0-5.9)
== END ==
LOC: OLABPV 10:57
PROVIDERS: ATTENDING PHYSICIAN Physician Assistant Medical
DX: E03.9 Hypothyroidism, unspecified (principal); E55.9 Vitamin D deficiency, unspecified; E78.2 Mixed hyperlipidemia; E87.1 Hypo-osmolality and hyponatremia; I10 Essential (primary) hypertension; M85.80 Other specified disorders of bone density and structure, unspecified site; R73.9 Hyperglycemia, unspecified; I48.0 Paroxysmal atrial fibrillation; D64.9 Anemia, unspecified; N18.31 Chronic kidney disease, stage 3a
CPT/HCPCS: 36415; 80053; 80061; 82306; 82728; 83036; 84443; 85025

== ENCOUNTER → 2025-03-16 09:22 | Outpatient (REF) | payer MEDICARE, BC, SELFPAY | LOC: RAD 09:22 | PROVIDERS: ATTENDING PHYSICIAN Physician Assistant Medical | DX: R22.32 Localized swelling, mass and lump, left upper limb (principal) | CPT/HCPCS: 76882 ==

== ENCOUNTER 2025-03-24 17:05 | Inpatient (IN) | payer MEDICARE, BC, SELFPAY ==
[2025-03-24] VITALS (8 sets, daily range): BP systolic 110–132; BP diastolic 53–68; BMI 28.3; BMI 28.0
[2025-03-24 12:29] LABS: Hematocrit 37.5 % (37.0-47.0); Hemoglobin 12.3 g/dL (12.0-16.0); Mean Corp Hgb Conc. 32.8 g/dL (33.0-37.0); Mean Corpuscular Volume 96.9 fL (81.0-99.0); Nucleated Red Blood Cells % 0 %; Platelet Count 171 10^3/uL (130-400); Red Cell Dist. Width 13.1 % (11.5-14.5)
[2025-03-24 12:48] LABS: ALT (SGPT) 15 U/L (0-35); AST (SGOT) 23 U/L (14-36); Albumin 3.9 g/dl (3.5-5.0); Alkaline Phosphatase 55 U/L (38-126); Blood Urea Nitrogen 25 mg/dl (7-17); Calcium 8.7 mg/dl (8.4-10.2); Carbon Dioxide 34 mmol/L (22-30); Chloride 98 mmol/L (98-107); Glucose 105 mg/dl (70-99); Potassium 3.7 mmol/L (3.5-5.1); Sodium 135 mmol/L (135-145); Total Protein 7.4 g/dl (6.3-8.2); eGFR 55.55
--- NOTE | 2025-03-24 14:10 | ED.GENMED ---
History of Present Illness
<Jose Oates PA-C - Last Filed: 03/24/25 15:21>
General
Chief Complaint: Skin Problem
Source: patient
Exam Limitations: none
Time Seen by Provider: 03/24/25 13:51
History of Present Illness
History of Present Illness:
85-year-old female on Eliquis presents complaining of increasing pain and instability to the left knee with increasing erythema and drainage. She has a long history of staph infection inferior to the left knee that was treated with long-term IV
antibiotics. She is currently on suppressive cefuroxime twice a day. She noted yesterday she developed shaking chills associated with increased pain to the knee. She also notes while waiting in the waiting room she had several small episodes of
chest discomfort. None currently. She has a history of left total knee replacement done in 2016. She spoke with her orthopedic doctor who was aware that she was coming in here.
Past History
<Jose Oates PA-C - Last Filed: 03/24/25 15:21>
Past History
ED Past Medical History: Arrthythmia, NIDDM, Valvular disease, Hypothyroidism and Other
ED Past Surgical History: Appendectomy, Cardiac (Ablation for SVT/A. fib), Gynecological (Tubal ligation), Orthopedic (Shoulder surgery knee surgery), Tonsilectomy and Other (Eye operation)
Social History
Tobacco: Former smoker
Alcohol: Occasional (One glass a wine per day)
Drug: None
Personal:
Living: with family
Employment: Retired
Family History
Family History: Other (Noncontributory)
Phy Exam
<Jose Oates PA-C - Last Filed: 03/24/25 15:21>
Physical Exam
Physical Exam:
General: Well-appearing female no acute respiratory distress HEENT: Normal cephalic atraumatic
Heart: Regular rate and rhythm
Lungs: Clear no wheeze skin: Sinus tract noted over the inferior portion of the anterior left knee with surrounding erythema. There is significant purulent drainage coming from this. This is tender. Erythema spreads to the medial and lateral
aspect of the knee
Musculoskeletal exam: Range of motion of the knee is limited and is diffusely tender
Vascular: 2+ DP pulse left foot
Sepsis
<Jose Oates PA-C - Last Filed: 03/24/25 15:21>
Sepsis Screening
Sepsis Assessment: Sepsis Ruled Out
Sepsis Screen
Sepsis Screen: Sepsis Ruled Out
Date: 03/24/25
Time: 15:21
Course
<Jose Oates PA-C - Last Filed: 03/24/25 15:21>
Orders/Labs/Results
Orders:
Orders
03/24/25 12:22
Complete Blood Count/With Diff Urgent
Comprehensive Metabolic Panel Urgent
Lactic Acid Urgent
03/24/25 14:11
Electrocardiogram (*1) Urgent
Reason for Study: Chest Pain
EKG- Treatment ONCE
03/24/25 14:25
CRP [C-Reactive Protein] Urgent
Sed Rate [Erythrocyte Sed Rate] Urgent
Blood Culture Q30M
ONEAL Source: Blood/Venous
Specimen Description:
Blood Culture Q30M
ONEAL Source: Blood/Venous
Specimen Description:
Wound Culture [Wound/Abscess/Other Culture] Urgent
ONEAL Source: Knee
Specimen Description: Left
Date Specimen was Collected: 03/24/25
Time Specimen was Collected: 14:16
03/24/25 14:26
CR Knee - Left 4 Or More View* Urgent
Comment:
Reason For Exam: pain
03/24/25 14:51
0.9% Sodium Chloride 500 ml [Nss] 500 ml IV BOLUS
Acetaminophen [Tylenol] 650 mg PO NOW STA
Abnormal Lab Results
03/24/25
12:22
RBC 3.87 L 10^6/uL
(4.20-5.40)
MCH 31.8 H pg
(27.0-31.0)
MCHC 32.8 L g/dL
(33.0-37.0)
Absolute Neuts (auto) 7.7 H 10^3/uL
(1.4-6.5)
Absolute Lymphs (auto) 1.0 L 10^3/uL
(1.2-3.4)
Neutrophils % 81.7 H %
(42.2-75.2)
Lymphocytes % 10.9 L %
(20.5-51.1)
Carbon Dioxide 34 H mmol/L
(22-30)
BUN 25 H mg/dl
(7-17)
Glucose 105 H mg/dl
(70-99)
03/24/25 12:22
03/24/25 12:22
Vital Signs
Initial and Last Documented VS:
Initial Vital Signs
Temp Pulse Resp BP Pulse Ox
100.5 F H 74 16 132/62 95
03/24/25 12:09 03/24/25 12:09 03/24/25 12:09 03/24/25 12:09 03/24/25 12:09
Last Documented Vital Signs
Temp Pulse Resp BP Pulse Ox
100.4 F H 76 16 115/55 96
03/24/25 14:32 03/24/25 14:48 03/24/25 14:48 03/24/25 14:48 03/24/25 14:48
<Marty Locke MD - Last Filed: 03/24/25 14:55>
Orders/Labs/Results
Orders:
Orders
03/24/25 12:22
Complete Blood Count/With Diff Urgent
Comprehensive Metabolic Panel Urgent
Lactic Acid Urgent
03/24/25 14:11
Electrocardiogram (*1) Urgent
Reason for Study: Chest Pain
EKG- Treatment ONCE
03/24/25 14:25
CRP [C-Reactive Protein] Urgent
Sed Rate [Erythrocyte Sed Rate] Urgent
Blood Culture Q30M
ONEAL Source: Blood/Venous
Specimen Description:
Blood Culture Q30M
ONEAL Source: Blood/Venous
Specimen Description:
Wound Culture [Wound/Abscess/Other Culture] Urgent
ONEAL Source: Knee
Specimen Description: Left
Date Specimen was Collected: 03/24/25
Time Specimen was Collected: 14:16
03/24/25 14:26
CR Knee - Left 4 Or More View* Urgent
Comment:
Reason For Exam: pain
03/24/25 14:51
0.9% Sodium Chloride 500 ml [Nss] 500 ml IV BOLUS
Acetaminophen [Tylenol] 650 mg PO NOW STA
Abnormal Lab Results
03/24/25
12:22
RBC 3.87 L 10^6/uL
(4.20-5.40)
MCH 31.8 H pg
(27.0-31.0)
MCHC 32.8 L g/dL
(33.0-37.0)
Absolute Neuts (auto) 7.7 H 10^3/uL
(1.4-6.5)
Absolute Lymphs (auto) 1.0 L 10^3/uL
(1.2-3.4)
Neutrophils % 81.7 H %
(42.2-75.2)
Lymphocytes % 10.9 L %
(20.5-51.1)
Carbon Dioxide 34 H mmol/L
(22-30)
BUN 25 H mg/dl
(7-17)
Glucose 105 H mg/dl
(70-99)
11/21/25 12:22
03/24/25 12:22
Vital Signs
Initial and Last Documented VS:
Initial Vital Signs
Temp Pulse Resp BP Pulse Ox
100.5 F H 74 16 132/62 95
03/24/25 12:09 03/24/25 12:09 03/24/25 12:09 03/24/25 12:09 03/24/25 12:09
Last Documented Vital Signs
Temp Pulse Resp BP Pulse Ox
100.4 F H 76 16 115/55 96
03/24/25 14:32 03/24/25 14:48 03/24/25 14:48 03/24/25 14:48 03/24/25 14:48
<Jose Oates PA-C - Last Filed: 03/24/25 15:21>
MDM/Problems Addressed
Differential Diagnosis Includes:
Patient with increased pain and instability with redness and drainage from the left knee. Temperature on arrival here was 100.5. She describes what sounds like rigors yesterday. Concern for worsening infection of the knee. She tells me she has a
history of staph infection. Currently on suppressive cefuroxime. Wound cultures taken blood cultures taken sed rate and CRP added. Contacted orthopedics.
<Jose Oates PA-C - Last Filed: 03/24/25 15:21>
*Pulse Oximetry
SaO2: 95
Oxygen Mode of Delivery: Room air
Patient hypoxic: no
*Critical Care Note
Total Time (30-74mins, 75-104mins- exclusive of procedures): Not Applicable
<Jose Oates PA-C - Last Filed: 03/24/25 15:21>
Update Note
Update Note:
Labs reviewed x-ray reviewed. Discussed with orthopedics. Will plan on admitting patient to hospital. Orthopedics to see patient here and will decide on antibiotics. Hospitalist made aware
ED Attending Note
<Jose Oates PA-C - Last Filed: 03/24/25 15:21>
-
Portions of this chart may have been created with voice recognition software.� Occasional wrong word or��sound alike� substitutions may have occurred due to the inherent limitations of voice recognition software.
<Marty Locke MD - Last Filed: 03/24/25 14:55>
ED Attending Note
Patient seen and examined by attending physician: Yes
I performed the substantive portion of visit, reviewed & personally made and approve the management plan that is documented in note by myself or ANGEL.: Yes
ED Attending Note:
Patient presents with recurrent infection issue involving the left knee. This has been followed by infectious disease and orthopedics. It has been opened in the past. She is currently on antibiotics. She has some mild systemic symptoms in the
last 24 hours. Increased drainage and swelling noted recently.
On exam patient is nontoxic in no distress. Low-grade fever. Stable vital signs. No respiratory distress. Regular rate and rhythm. Warm and dry. Perfusing well.
Impression is purulent drainage below the left knee. Old scar from a knee replacement. Knee itself does not have significant warmth or significant swelling. Warrants admission for abscess/cellulitis and further evaluation to decide whether this
involves the joint.
Discharge Plan
Departure
Patient Disposition: Admit
Date of Disposition: 03/24/25
Time of Disposition: 15:20
Presentation/result/management discussed w/ accepting MD/DO: Hospitalist
Discharge Problem:
Infection of left knee
Prescriptions:
No Action
levothyroxine 125 MCG tablet
125 mcg PO DAILY@0400
cholecalciferol (vitamin D3) 2,000 UNIT tablet
2,000 unit PO DAILY
calcium carbonate 600 MG tablet
600 mg PO DAILY
atorvastatin [Lipitor] 10 mg Tablet
10 mg PO DAILY
omeprazole 20 mg Tablet,Delayed Release (Dr/Ec)
20 mg PO DAILY
potassium chloride 10 mEq Tablet Extended Release
20 meq PO DAILY
cyanocobalamin (vitamin B-12) 500 mcg Tablet
500 mcg PO DAILY
losartan 25 mg tablet
25 mg PO DAILY
Eliquis 5 MG tablet
5 mg PO BID
gabapentin 100 mg Capsule
100 mg PO TID
Aranesp (in polysorbate) 200 mcg/0.4 mL Syringe
200 mcg SC DAILYPRN PRN (Reason: Hgb<11)
furosemide 40 mg Tablet
40 mg PO DAILY
polyethylene glycol 3350 [Miralax] 17 gram Powder In Packet
17 g PO DAILYPRN PRN (Reason: constipation)
albuterol sulfate 90 mcg/actuation Hfa Aerosol Inhaler
2 puff INHALATION R Q6HPRN PRN (Reason: sob)
sennosides-docusate sodium 8.6-50 mg tablet
1 tab-cap PO HS
ferrous sulfate 325 mg (65 mg iron) tablet
325 mg PO DAILY
metoprolol succinate 50 mg Tablet Extended Release 24 Hr
50 mg PO .COMPLEX Qty: 30 1RF
Rx Instructions:
50 mg daily in the morning
acetaminophen 500 mg Tablet
1,000 mg PO [id number] PRN (Reason: mild pain) Qty: 0 0RF
doxycycline hyclate 100 mg Capsule
100 mg PO BID
dofetilide 250 mcg Capsule
250 mcg PO Q12H Qty: 60 3RF
Referrals:
UNKNOWN - PT DOES,NOT KNOW [Family Provider]
Interventions
Interventions:
*Risk Screen - Suicide Last Done: 03/24/25 12:09
*General Assessment Last Done: 03/24/25 12:09
*Neglect/Abuse Screening Last Done: 03/24/25 12:09
*ED- Fall Risk Assessment Last Done: 03/24/25 14:46
*ED COVID-19 Vaccine History Last Done: 03/24/25 14:46
*ED Influenza Vaccine History Last Done: 03/24/25 14:46
ED-Skin Assessment Last Done: 03/24/25 14:46
Discharge Date and Time
Print Language: URDU
[2025-03-24] MEDS: NSS 500 IV (14:53)
--- NOTE | 2025-03-24 15:20 | HPS.HSE ---
Family Physician
-
Family Physician: NOT KNOW UNKNOWN - PT DOES
Chief Complaint
-
left knee instability and drainage
History of Present Illness
Patient is a 85-year-old female with past medical history significant for hypertension, hyperlipidemia, HFrEF, hypothyroidism, paroxysmal atrial fibrillation, GERD and chronic kidney disease IIIa who presented to [facility] ED for evaluation of left knee
instability and drainage. Patient reports recurrent infection in left knee over past 4-5 months and has been following with Dr. Hamlin. Patient reports she called Dr. Hamlin reporting edema, erythema and drainage when he recommended ED for
evaluation and treatment. Patient reports that left knee was replaced in 2015 and she did well. In October 2022 she had spinal surgery and was informed at that time she had a staph infection and was placed on chronic cefuroxime. Patient states that
yesterday her daughter mentioned she thought patient felt warm, but she never did measure her temperature at that time. Denies any recent illness, cough, shortness of breath, nausea, vomiting, constipation, diarrhea or urinary symptoms.
Medical History
Past Medical History
Past Medical History: Reports Other
Additional Past Medical History:
hypertension
hyperlipidemia
HFrEF
hypothyroidism
paroxysmal atrial fibrillation
GERD
chronic kidney disease IIIa
Hx staph infection
Past Surgical History: Reports Other
Additional Past Surgical History:
Meniscus
cardiac Cath
Left TKR
Knee Surgery-arthroscopic
Hysterectomy-vaginal
shoulder Surgery-arthroscopic
Left breast bx benign age 37 [place]
Right TKR 03/20/2020
Cardiac ablation 12/2020
Back surgery 2022
Social History
Tobacco: Non-smoker
Alcohol: Daily (1 glass of wine or martini )
Drug: None
Personal:
Living: With Family
Employment: Retired
Family History
Family History: Other (Sister: multiple myeloma; Sister: breast cancer )
Allergies / Home Medications
Allergies reflects when Allergies were last updated in [employer].
Home Medications with original date entered in [employer]
Allergy/Medication List:
Allergies
Allergy/AdvReac Type Severity Reaction Status Date / Time
vancomycin Allergy Itching, Verified 03/24/25 15:34
Lip
swelling,
Erythema
amiodarone AdvReac 'my legs Verified 03/24/25 15:34
turned
blue' per
patient
Home Medications
levothyroxine 125 mcg tablet 125 mcg PO DAILY Thyroid 12/01/12
cholecalciferol (vitamin D3) 50 mcg (2,000 unit) tablet 2,000 unit PO Q48H Supplement 12/02/12
atorvastatin 10 mg tablet (Lipitor) 10 mg PO DAILY High cholesterol 07/23/22
omeprazole 20 mg tablet,delayed release 20 mg PO BID gerd 07/23/22
apixaban 5 mg tablet (Eliquis) 5 mg PO BID Blood Clot Prevention/Tx 01/06/23
cyanocobalamin (vitamin B-12) 500 mcg tablet 500 mcg PO DAILY Supplement 01/06/23
potassium chloride 10 mEq tablet,extended release 20 meq PO DAILY Electrolyte Repletion 01/06/23
darbepoetin joseluis in polysorbat 200 mcg/0.4 mL in polysorbate injection syringe (Aranesp) 200 mcg SC DAILYPRN PRN Hgb<11 07/15/23
gabapentin 100 mg capsule 100 mg PO TID Neurological Condition 07/15/23
albuterol sulfate 90 mcg/actuation aerosol inhaler 2 puff inhalation R Q6HPRN PRN sob 03/16/24
furosemide 40 mg tablet 40 mg PO DAILY Fluid Retention/Swelling 03/16/24
Nutraful 1 cap PO BID Supplement 03/24/25
acetaminophen 500 mg tablet 1,000 mg PO TID Pain 03/24/25
dofetilide 250 mcg capsule 250 mcg PO Q12H Heart Disease/Condition 03/24/25
losartan 50 mg tablet 50 mg PO DAILY Heart Disease/Condition 03/24/25
metoprolol succinate 50 mg tablet,extended release 24 hr 50 mg PO DAILY Blood Pressure 03/24/25
Review of Systems
-
History Source: Patient
Constitutional: Reports Fever and Chills
EENT: Denies Sore Throat
Respiratory: Denies Cough, Hemoptysis or Trouble Breathing
Cardiac: Reports Chest Pain; Denies Diaphoresis, Palpitations or Syncope
Abdomen/GI: Denies Abdominal Pain, Nausea, Vomiting or Diarrhea
: Denies Dysuria, Frequency or Urgency
Musculoskeletal: Reports Other (left knee edema, erythema and drainage )
Skin: Denies Rash
Neurological: Denies Dizzy, Headache or Weakness
Endocrine: Denies Polyuria
Physical Exam
Vital Signs
Vital Signs
Temp Pulse Resp BP Pulse Ox
100.4 F H 76 16 115/55 96
03/24/25 14:32 03/24/25 14:48 03/24/25 14:48 03/24/25 14:48 03/24/25 14:48
Physical Exam
General: Well Developed, Well Nourished, No Apparent Distress, Comfortable, Conversant and Obese
HEENT: NormoCephalic, Moist mucous membranes, PERRLA, Ears Appear Normal and Hearing Impaired
Respiratory: Clear and Non Labored Respirations; No Wheezes, Rales or Rhonchi
Cardiac: S1/S2, Regular Rhythm and Peripheral Edema (mild bilateral lower extremity L>R); No Murmur, Rub or Gallop
GI: Soft, Non Tender, Non Distended and Normal Bowel Sounds
Musculoskeletal: Clubbing, No Cyanosis and Other (Left anterior knee with erythema spreading medially and laterally, edema, purulent drainage, tenderness and limited ROM to left knee)
Skin: Warm and IV/Catheter Site
Neuro: Awake and AO x 3
Psych: Calm and Intact Judgment/Insight
Laboratory Results
-
03/24/25 12:22
03/24/25 12:22
Laboratory Results
Lactic Acid 1.0 mmol/L (0.7-2.0) 03/24/25 12:22
Total Bilirubin 0.7 mg/dl (0.2-1.3) 03/24/25 12:22
AST 23 U/L (14-36) 03/24/25 12:22
ALT 15 U/L (0-35) 03/24/25 12:22
Alkaline Phosphatase 55 U/L (38-126) 03/24/25 12:22
Data Reviewed
-
Diagnostic Radiology: Report Reviewed by me (Left Knee: Intact total left knee arthroplasty hardware. No overt complications identified radiographically. No acute fractures or dislocation. Small to moderate suprapatellar joint effusion. Soft tissues
otherwise grossly unremarkable.)
Medical Tests (Nuc Med, Echo, EKG etc): Report Reviewed by me (EKG: SINUS RHYTHM WITH PREMATURE SUPRAVENTRICULAR COMPLEXES LEFT AXIS DEVIATION INCOMPLETE LEFT BUNDLE BLOCK)
Lab Data: Labs Reviewed by me (neut 81.7, BUN 25, creat 1.0, eGFR 55.55, CRP >270.00)
Impression/Plan
-
IMPRESSION/PLAN:
#left knee infection
#Hx staph infection
left anterior knee with erythema spreading medially and laterally, edema, purulent drainage, tenderness and limited ROM to left knee
neut 81.7, CRP >270.00
Blood Cx: pending
Wound Cx: pending
EKG: SINUS RHYTHM WITH PREMATURE SUPRAVENTRICULAR COMPLEXES
LEFT AXIS DEVIATION INCOMPLETE LEFT BUNDLE BLOCK
Left Knee x-ray: Intact total left knee arthroplasty hardware. No overt complications identified radiographically. No acute fractures or dislocation. Small to moderate suprapatellar joint effusion. Soft tissues otherwise grossly unremarkable.
- Admit to med/surg
- Consult ortho
- Consult ID
- IV Cefazolin 2gm q8
- pain regimen
#hypertension
- continue losartan
#hyperlipidemia
- continue atorvastatin
#HFrEF
- daily weights
- I & Os
- continue furosemide
#hypothyroidism
- continue levothyroxine
#paroxysmal atrial fibrillation
- continue dofetilide, metoprolol and Eliquis
#GERD
- continue omeprazole
#chronic kidney disease IIIa
BUN 25, creat 1.0, eGFR 55.55
appears to be close to patient baseline
- monitor BMP
Code status: full code
DVT Prophylaxis: Eliquis
[2025-03-24 15:21] LABS: C-Reactive Protein > 270.00 mg/L (0.0-10.00)
[2025-03-24] MEDS: TYLENOL 650 MG PO (15:33)
--- NOTE | 2025-03-24 15:44 | W.PN.UPDATE ---
Update Note
Progress Note Update
This note serves as an addendum to the H&P by body designer Maya Moe
HPI
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
suppressive antibiotics, HX Chr HFmrEF, NICM EF 40-45% seen ast ER:
- reports increasing pain and instability to the left knee
- associated with increasing erythema and drainage.
- yestersday noted shaking chills associated with increased pain to the knee.
- HX left TKA done in 2016. Primary orthopedic who was aware that she was coming in here.
- HX staph infection inferior to the left knee that was treated with long-term IV antibiotics
- Currently on suppressive cefuroxime twice a day.
ROS:
She also notes while waiting in the waiting room she had several small episodes of chest discomfort.
No CP currently.
Relevant VS
Temp Pulse Resp BP Pulse Ox
100.5 F H 72 22 132/53 94
03/24/25 15:32 03/24/25 15:32 03/24/25 15:32 03/24/25 15:32 03/24/25 15:32
PE
Gen: NAD, not toxic
HEENT: anicteric
Neck: supple
Lungs: Clear
Cor: RRR S1 S2
Abdomen:�soft benign
PATHOLOGY SECRETARY/TRANSCRIPTIONIST: AAO3
MS:
Lt Knee
- decreased RoM due to pain
- sinus tract noted over the inferior portion of the anterior left knee with surrounding erythema and tenderness
- significant purulent drainage coming from this.
- Erythema spreads to the medial and lateral aspect of the knee
Psych: Nl mood and affect
Relevant Data
02/28/25 03/24/25
08:30 12:22
WBC 9.4
Hgb 11.7 L 12.3
Plt Count 171
07/17/23 02/28/25 03/24/25
07:15 08:30 12:22
INR 1.21
Carbon Dioxide 34 H
BUN 25 H
Creatinine 0.9 1.0
eGFR > 60.00 55.55
C-Reactive Protein >270
Last hospitalist admission: 04/18/24 - 04/20/24
DC DXS: Relapsed Left knee MSSA septic bursitis -- abscess in surgical site (from surgical procedure in March 2024)
ASSESSMENT & PLAN
Relapsed Left knee MSSA septic bursitis vs septic joint
- BCx and Wd Cx sent
- Prior HX total 6 weeks of IV cefazolin 2g IV q8 through 05/30/24.
-03/18/24: s/p I+D of bursa. NO left knee prosthetic joint involvement as per Ortho Dr. Hamlin. OR CX POS MSSA sensitive to doxycycline, pt on chronic suppression)
- Prior HX suppressive doxycycline for HX MSSA spine discitis with hardware in place.
- Suspect may have developed sinus tract to bone
- Empiric IV cefazolin 2g IV q8
- To consider PICC
- Routine Consult : ID and Ortho
Chronic HFmrEF HX: stable
HX NICM EF 40-45%
GDMT
- Diuretics: on PO Lasix 40 qd
- BB: Metoprolol succinate 50mg daily
- ACEI/ARB/ARNi: Losartan 50mg daily
- MRA: Not on it
- SGLT2i: Not on it
Paroxysmal AF (s/p PVI and A Tach ablation 12/10/20)
Paroxysmal typical atrial flutter status post cardioversion
- CLOTH PICKER Eliquis 5 mg BID
- Toprol:50 mg daily
- on dofetilide
Known HX:
Aortic sclerosis without stenosis
Chronic LBBB
MR
Hypertension
Hyperlipidemia
Hypothyroidism
GERD
Chronic back pain status post back surgery
Depression
BORIS
Interstitial cystitis
MSSA (pansensitive) bacteremia 10/01/22 ([facility])
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
MSSA left knee bursitis s/p I+D 03/18/24
Left knee TKR 2015
Right knee TKR
Arthroscopy right shoulder.
Tonsillectomy.
Appendectomy.
Tubal ligation.
DVT Prophylaxis: Eliquis
Code Status: Full Code
IP MS
--- NOTE | 2025-03-24 16:44 | CON.ID ---
Consultation
-
Date/Time Consultation Requested: March 24, 2025
Date/Time Consultation Performed: March 24, 2025
Requesting Provider: ANAID Persaud
Performing Provider: Dr. Sushila Bueno
Reason for Consultation: Fever, draining knee wound
Chief Complaint / Past History
Chief Complaint
Left knee pain
History of Present Illness
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
bursitis who presented to ED today due to acute left knee/leg pain, unable to bear weight since yesterday.
History persistent complicated left knee septic bursitis, suspect sinus tract to underlying prosthesis/ PJI:
- 03/18/24 s/p I+D of bursa, no left knee prosthetic joint involvement as per Ortho Dr. Hamlin
- OR cx MSSA (interestingly sensitive to doxycycline, pt on chronic suppression)
- Completed�cephalexin 1000mg po qq8 through 04/01/24, then resumed on suppressive doxycyline for hx MSSA spine discitis with hardware in place.
- 04/12/2024 relapse septic knee bursitis
-04/18/24 - 05/20/24 IV cefazolin with good response
- 06/15/24 Unfortunately relapse of septic knee bursitis on doxycycline suppressive therapy
- 06/22/24 Suspect�MSSA may have developed resistance to doxycycline. Doxy dc'd, replaced with dicloxacillin 500mg po qid.�Infection continued to progress�while on dicloxacillin (3 weeks), abx dc'd
-07/20/24 PICC placed for cefazolin 2g IV q6h x 6 weeks.�Unforunately, no response�with significant purulent drainage from abscess. Cefazolin discontinued on day 36.
-08/24/24 expressed pus from abscess and sent for cx's. 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 The strain is highly resistant to multiple antibiotics.�Daptomycin IV started on 08/29/24.
- 09/12/24 MRI LE w and wo contrast: limited by HW artifact; + 3.8 x 1.2 x 3.5cm rim enhancing complex collection in anteromeidal prox leg below the joint line. No joint effusion. Per Ortho abscess was not contiguous with the prosthetic knee.
-09/20/24 Knee abscess lanced at Ortho office and [facility]
- Completed daptomycin ( 08/29/24 -11/06/24)
-11/08/24 Left knee wound closed, discharged from [facility].
-12/2024, recurrence of left prepatellar fluid underneath wound - follows with Ortho. Has intermittent drainage.
Yesterday she was feeling fine and went out to lunch with her friends. When she walked back to her car, she noted left knee pain. When she got home, she had difficulty bearing weight. The knee wound started draining again. She had chills. She
felt warm to her daughter. She called Ortho today who sent her to the ED. temperature 100.5, normal white count, CRP>270. She states Ortho expressed copious pus from the wound today. No URI sxs. No bodyaches. No cough or shortness of breath. No
chest pain. No abdominal pain. No diarrhea. No urine symptoms.
Past History
Additional Past Medical History:
Afib on dofetilide
CHF
HTN
HLD
Hypothyroidism
Depression
BORIS
Interstitial cystitis
MSSA (pansensitive) bacteremia 10/01/22 ([facility])
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
MSSA left knee bursitis s/p I+D 03/18/24
Left knee TKR 2015
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
Right knee TKR
Arthroscopy right shoulder.
Tonsillectomy.
Appendectomy.
Tubal ligation.
Allergy History:
vancomycin Allergy (Verified 03/24/25 15:34)
Itching, Lip swelling, Erythema
amiodarone Adverse Reaction (Verified 03/24/25 15:34)
'my legs turned blue' per patient
Medications Reviewed: Yes
Current Antibiotics:
Cefazolin
Social History
Tobacco: Non-Smoker
Alcohol: None
Drug: None
Personal:
Living: Other ([facility])
Family History
Family History: Not Pertinent
Review of Systems
Review of Systems
General: Chills; Negative Change in Appetite
HEENT: Negative Sinus Problems, Headache or Pharyngitis
Cardiovascular: Negative Chest Pain or Dyspnea
Respiratory: Negative Dyspnea or Cough
Gasteroenterology: Negative Nausea, Vomiting or Diarrhea
Genital / Urological: Negative Dysuria or Flank Pain
Vital Signs
Temp Pulse Resp BP Pulse Ox
100.5 F H 76 17 131/68 95
03/24/25 15:32 03/24/25 16:00 03/24/25 15:45 03/24/25 16:00 03/24/25 15:45
Physical Exam
Physical Exam
Constitutional: No Acute Distress and Comfortable
Eyes: Sclera Anicteric
Cardiovascular: Regular Rate and S1/S2
Pulmonary: Clear
Gastrointestinal: Soft, Non Tender, Non Distended and Normal Bowel Sounds
Genito-Urinary: Negative CVA Tenderness
Extremities: Edema (LLE)
Wound: Other (Below left knee small wound with cloudy yellow fluid expressed, no surrounding erythema)
Neurological: AO x 3
Lab / Diagnostic Study Results
03/24/25 12:22
03/24/25 12:22
Abs Immat Gran (auto) 0.0 10^3/uL (0-0.05) 03/24/25 12:22
Absolute Neuts (auto) 7.7 10^3/uL (1.4-6.5) H 03/24/25 12:22
Absolute Lymphs (auto) 1.0 10^3/uL (1.2-3.4) L 03/24/25 12:22
Absolute Monos (auto) 0.6 10^3/uL (0.1-0.6) 03/24/25 12:22
Absolute Basos (auto) 0.0 10^3/uL (0-0.2) 03/24/25 12:22
Immature Gran % 0.3 % (0-0.5) 03/24/25 12:22
Neutrophils % 81.7 % (42.2-75.2) H 03/24/25 12:22
Lymphocytes % 10.9 % (20.5-51.1) L 03/24/25 12:22
Monocytes % 6.5 % (1.7-9.3) 03/24/25 12:22
Eosinophils % 0.4 % (0-6) 03/24/25 12:22
Basophils % 0.2 % (0-2) 03/24/25 12:22
ESR 78 mm/hour (0-20) H 03/24/25 14:25
Lactic Acid 1.0 mmol/L (0.7-2.0) 03/24/25 12:22
C-Reactive Protein > 270.00 mg/L (0.0-10.00) H 03/24/25 14:25
Microbiology Results
Micro:
03/24/25 14:25 Wound Culture - Pending
Knee - Left Gram Stain - Preliminary
03/24/25 14: Blood Culture - Pending
Blood/Venous
03/24/25 14:25 Blood Culture - Pending
Blood/Venous
03/24/25 Left knee XRAY: Intact total left knee arthroplasty hardware. No overt complications identified radiographically. No acute fractures or dislocation. Small to moderate suprapatellar joint effusion. Soft tissues otherwise grossly unremarkable.
Assessment / Plan
# Fever
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
# Elevated CRP >270
- Blood cx's pending
- Purulent drainage from sinus tract cx pending
- Await Ortho plan. I recommend 2 stage revision, if feasible. Please send multiple OR aerobic and anaerobic cultures.
- Can continue cefazolin for now.
- Trend fever.
--- NOTE | 2025-03-24 16:46 | CM ---
Chart reviewed and spoke with patient at ED bedside
Lives with at [facility]
Independent with ADLs
ambulating with a rollator, been managing left knee infection over a year under Dr. Nieves ortho doc
DME RW rollator, SPC
PCP Dr. Stringer
RX plan yes
Pharmacy [facility]
hx of [facility]
hx of [facility]'s acute rehab
DCP is to go home
can drive her
CM will continue to follow up for any dcp needs
[2025-03-24] MEDS: ANCEF 10 IV (19:50)
[2025-03-24] MEDS: PROTONIX 40 MG PO (19:51)
[2025-03-24] MEDS: TIKOSYN 250 MCG PO (19:51)
[2025-03-24] MEDS: ELIQUIS 5 MG PO (19:52)
--- NOTE | 2025-03-24 20:47 | W.PN.UPDATE ---
Update Note
Progress Note Update
Full consult dictated. Patient is an 85-year-old female who is well-known to me. She underwent total knee replacement by myself a number of years ago. She did well following her knee replacement and also had her right knee replaced. She went on
to eventually have back surgery at [facility]. This was complicated by an infection and she had hardware placed. She was placed on chronic antisuppressive antibiotics. Approximately a year ago she began having some drainage from her left
knee just distal to her incision in the area of the pes. She was taken to the OR by myself to have this washed out. This eventually healed after being placed on antibiotics. Since that time she has had multiple episodes of recurrence. She has
had radiographs taken of her knee. She had an MRI of her knee to evaluate for possible synovial changes or soft tissue collections. Her knee was never felt to be involved as she always had good range of motion about her knee and no significant
effusion. Attempted aspiration of her knee in the past yielded no fluid. She has been changed on her antibiotics over time and has been on chronic suppressive antibiotics with occasional drainage. We have had discussion about removal of her knee
replacement but as her knee seem to be functioning well we have not explored her knee previously. She looked very good a few weeks ago in the office and was feeling well. There is no significant drainage at that time. She notes that just over the
past day and a half she has had a low-grade fever and started having drainage once again from the same spot. She was sent to the emergency room. In the emergency room there was expression of purulence from the small opening about the proximal
medial tibia in the area of the pes. This was cultured by the ER staff. White blood cell count was 9.4 and her sed rate was elevated at approximately 80 and her C-reactive protein was greater than 270. She did have some limitation with range of
motion of her knee. Physical exam physical exam evaluation of her knee reveals a small pinpoint opening with some purulence draining in similar area that she has had previously. Compression of this area yielded some thick purulent material and
then stopped. There is some thickening of the synovial lining about her knee and I was not sure if there is a specific effusion and her radiographs did not show a specific effusion. She is able to fully extend her knee and was able to bend to
approximately 30 degrees. Her incision was well-healed. There are some increased warmth about her knee. Radiographs revealed no definitive loosening however there was some radiolucency noted about the medial aspect of the tibial stem. I had a
long discussion with the patient. Told her that I wish to aspirate her knee to see if there is any fluid in her knee joint to be cultured. Her knee was prepped with Betadine swabs. Sterile 18-gauge needle and connected to a syringe was inserted
into the suprapatellar pouch. There is no fluid aspirated from the knee. I had a long discussion with the patient. 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
It is possible that this has now been going on over time and the wound closes and then erupts after a recurrent buildup. She has been on chronic antisuppressive antibiotics. She currently is not septic. We have had a discussion about treatment
options moving forward. Will see if there is any other options for oral antibiotics. We may be able to consider sending her home and scheduling a similar elective revision of her knee with removal of hardware and spacer placement. We have
discussed this in the past and I have been hesitant to proceed as I feel that she has multiple medical comorbidities and she has not been septic and her physical exam has not revealed intra-articular pathology. We also had a discussion that if the
infection could not be cleared or if her skin and surrounding tissues did not heal that treatment may result in a amputation. We will follow the current cultures and discussed with infectious disease. I believe this will be a chronic problem and
can be considered for surgical intervention but this is not without its risks as well. I would also like to have a cardiology evaluation prior to surgery. She is on Eliquis. Currently she will remain on Eliquis and she will not be made n.p.o.
currently.
[2025-03-24] MEDS: NEURONTIN 100 MG PO (21:21)
[2025-03-25] MEDS: ANCEF 10 IV ×2 (02:59→09:42)
[2025-03-25 03:00] VITALS: BP 131/56
[2025-03-25] MEDS: TYLENOL 650 MG PO ×2 (04:12→13:56)
[2025-03-25 06:00] VITALS: BMI 27.9
[2025-03-25] MEDS: SYNTHROID 125 MCG PO (06:11)
[2025-03-25 07:15] VITALS: BP 130/52
[2025-03-25 07:35] LABS: Hematocrit 31.6 % (37.0-47.0); Hemoglobin 10.5 g/dL (12.0-16.0); Mean Corp Hgb Conc. 33.2 g/dL (33.0-37.0); Mean Corpuscular Volume 96.0 fL (81.0-99.0); Platelet Count 155 10^3/uL (130-400); Red Cell Dist. Width 13.0 % (11.5-14.5)
[2025-03-25 08:23] LABS: Blood Urea Nitrogen 22 mg/dl (7-17); Calcium 7.9 mg/dl (8.4-10.2); Chloride 102 mmol/L (98-107); Estimated Creatinine Clearance 48 ml/min; Glucose 89 mg/dl (70-99); Potassium 3.7 mmol/L (3.5-5.1); Sodium 139 mmol/L (135-145); eGFR > 60.00
[2025-03-25 08:35] LABS: Carbon Dioxide 33 mmol/L (22-30)
[2025-03-25] MEDS: ELIQUIS 5 MG PO ×2 (09:40→20:55)
[2025-03-25] MEDS: LASIX 40 MG PO (09:40)
[2025-03-25] MEDS: PROTONIX 40 MG PO ×2 (09:41→20:55)
[2025-03-25] MEDS: TOPROL XL 50 MG PO (09:41)
[2025-03-25] MEDS: KCL 20 MEQ PO (09:41)
[2025-03-25] MEDS: LIPITOR 10 MG PO (09:41)
[2025-03-25] MEDS: COZAAR 50 MG PO (09:41)
[2025-03-25] MEDS: TIKOSYN 250 MCG PO ×2 (09:41→20:55)
[2025-03-25] MEDS: NEURONTIN 100 MG PO ×3 (09:41→20:55)
--- NOTE | 2025-03-25 10:04 | W.PN.UPDATE ---
Update Note
Progress Note Update
Patient seen and examined. Feeling better this AM. I had a long discussion with the patient today to discuss treatment options. We had hoped to treat his left leg/knee infection with chronic suppressive antibiotics as she has been treating with
chronic suppressive antibiotics for spine for a few years. We have debrided the area of drainage locally and did not feel that the knee joint itself was affected in the past as she maintained excellent ROM and there was no effusion of the knee
joint on aspiration attempts. MRI revealed no effusion no communication with the joint. 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 Once again, she has no significant effusion and aspiration yielded no joint fluid. We discussed removal of her prosthesis with the placement of a spacer with antibiotic impreganated cement. She has an allergy to
vancomycin. I have spoken to the phamacy about the use of Daptomycin for treating PJI and have asked for powdered Daptomycin and Tobramycin be available with the amounts needed. We will consult cardiology and she is know to them for preop
evaluation and will stop her Eliquis with plan for surgery on . The patient would like to proceed with surgery. All questions answered. Risks, benefits, complications and postop expectations discussed. The procedure itself was discussed and
informed consent was obtained
--- NOTE | 2025-03-25 10:25 | CON.CAR ---
Addendum entered and electronically signed by Lico Jo MD 03/25/25 12:41:
Patient seen and examined
Agree with MICK Whitt's note and assessment
Agree with MICK Whitt's plan
Discussed with Dr. Hamlin plan for surgery on March 29. We are consulted today for preoperative assessment on March 25
Exam:
Left knee wrapped
Trace extremity edema
Sinus rhythm on telemetry
Alert and oriented x 3
Nonfocal neurologically
Cor regular without murmur
Lungs clear to auscultation bilaterally
Abdomen soft nontender positive bowel sounds
PCP: Nannette Louise PA-C
Chief Technologist: Dr. Maria Del Rosario Cortes
EP: Dr. Jose Eduardo Cortes
Impression:
Presents 03/24/2025 with left knee pain and instability
Left knee prosthetic joint infection despite courses of antibiotics as outpatient failed (hx 6 weeks cefazolin, then 8 weeks daptomycin, and suppressive therapy)
Elevated CRP greater than 270
Paroxysmal atrial fibrillation
-s/p PVI and Atach ablation 12/10/20
- Intolerant to amiodarone after patient developed blue-garibay hyper pigmentation on amiodarone, medication stopped 01/30/2024
-Chronic Eliquis OAC
Chronic HFmrEF
NICM EF 40-45%
Paroxysmal typical atrial flutter 07/23/22
urgent CV in ER restoring SR with blocked PACs and PVCs 07/23/22Chronic LBBB
Mitral regurgitation
Aortic sclerosis without stenosis
HTN
Hyperlipidemia
Chronic back pain s/p back surgery at [facility] 10/2022
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
Left knee prepatellar bursitis status post I&D 03/18/2024
BORIS w/ CPAP
GERD
H/o bowel obstruction
Hypothyroidism
Exercise mibi 06/06/19: Completed 6 minutes Josesito protocol for 107% MPHR and abnormal ECG with 1.[address] depression II, III, aVF that did not improve until 2 min into recovery, but there was normal perfusion imaging
Cardiac catheterization 08/22/2022:�Nonobstructive coronary artery disease with only minor luminal irregularity, Normal/near normal LVEDP measuring 15 mmHg
Echo 10/04/20: EF 52%, possible mild abnormal relaxation, mild MR
ECHO 07/23/22:�EF 40 to 45%, mild global hypokinesis, stage I diastolic dysfunction, severely dilated left atrium, moderate to severe central mitral regurgitation, mild to moderate AAS with peak/mean gradients 19/13 mmHg, HERMINIA 1.3 cm�, mild TR, PAP 45
to 50 mmHg
LYNETTE 08/22/2022:�EF 45%, mildly reduced systolic function.� Mild to moderate central MR.
Echo 01/07/23: EF 46%, stage II diastolic dysfunction, mod to sev MR, mild peak/mean 16/10 mmHg, mild to mod TR with PAP 62 mmHg
Echo 11/19/2023: EF 48%, mild cLVH, stage I diastolic dysfunction, mild MR, mild with peak/mean gradients 18/10 mmHg, mild AI
Plan:
-Presents 03/24/2025 with left knee pain and instability with concern for left knee prosthetic joint infection despite courses of antibiotics as outpatient failed (hx 6 weeks cefazolin, then 8 weeks daptomycin, and suppressive therapy)
-Being followed by ID as well as orthopedics. Plan is for removal of prosthetic joint with placement of spacer and antibiotic impregnated cement. Tentative OR date 03/29/2025
-History of paroxysmal atrial fibrillation/flutter status post PVI ablation and atrial tach ablation. Patient has been stable from an arrhythmia standpoint maintained on Tikosyn since May 2024.
-Will need to monitor EKG/QT interval with initiation of antibiotics. EKG from 03/24/2025 QTc 463 ms. Would monitor on telemetry as well
-Chronic anticoagulation with Eliquis. Anticipation for OR 03/29/2025. Hold Eliquis 48 hours prior to surgery. If patient should have recurrent atrial fibrillation/flutter off anticoagulation can consider initiation of heparin drip.
-Last echocardiogram was in November 2023 which showed low normal EF of 48% with mild . Will repeat echocardiogram on this March 27 prior to surgery
-Patient had cardiac catheterization in 2022 which showed no significant coronary artery disease. Does not need ischemic evaluation prior to surgery.
-Patient has heart failure with mildly reduced ejection fraction. Appears to be euvolemic on examination. Continue Lasix 40 mg daily. Can be held morning of surgery.
- Continue outpatient cardiac medications including atorvastatin, losartan and metoprolol.
Original Note:
Consultation
Consultation Request
Date/Time Consultation Requested: 03/25/2025
Date/Time Consultation Performed: 03/25/2025
Requesting Provider: Dr. Ranjeet Nguyen
Performing Provider: Briana Whitt PA-C for Dr. Jo
Reason for Consultation: Preoperative risk assessment
Medical History
-
Chief Complaint: afib
History of Present Illness:
Nicolette is an 85 year old female with PMH of chronic HFmrEF, NICM, paroxysmal atrial fibrillation/flutter, LBBB, MR, HTN, HLD, BORIS, hypothyroidism, GERD, MSSA discitis s/p spinal fusion with hardware on chronic suppressive abx since well as
left knee MSSA soft tissue abscess with septic bursitis. Patient being admitted for septic bursitis of knee. There has been ongoing outpatient treatment with multiple trials of IV antibiotics and chronic oral antibiotics. Now presenting to
emergency department with worsening left knee pain, inability to bear weight and knee wound with drainage/discharge. Patient also noted chills. Patient found to be febrile with temperature of 100.5 on admission.seen by orthopedics who expressed
copious pus from wound now with concern of prosthetic joint infection with possible fistula to tibia. Orthopedics now planning for removal of prosthetic joint with placement of spacer and antibiotic impregnated cement. Cardiology being asked to
see patient for preoperative risk assessment. Tentative surgery on 03/29/2025.
From cardiac standpoint patient last seen in office in January 2025 and was doing well without complaints. EKG showed sinus rhythm with left bundle branch block which is chronic and no evidence of recurrent atrial fibrillation on dofetilide.
PMH:
Paroxysmal atrial fibrillation
-s/p PVI and Atach ablation 12/10/20
- Intolerant to amiodarone after patient developed blue-garibay hyper pigmentation on amiodarone, medication stopped 01/30/2024
-Chronic Eliquis OAC
Chronic HFmrEF
NICM EF 40-45%
Paroxysmal typical atrial flutter 07/23/22
urgent CV in ER restoring SR with blocked PACs and PVCs 07/23/22
Chronic LBBB
Mitral regurgitation
Aortic sclerosis without stenosis
HTN
Hyperlipidemia
Chronic back pain s/p back surgery at [facility] 10/2022
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
Left knee prepatellar bursitis status post I&D 03/18/2024
BORIS w/ CPAP
GERD
H/o bowel obstruction
Hypothyroidism
Past Medical History
Past Medical History: Other (in HPI)
Past Surgical History: Cardiac (PVI and Atach ablation 12/10/20), Gynecological (vaginal hysterectomy) and Orthopedic
Social History
Tobacco: Former Smoker
Alcohol: Other (1-2 drinks four or more times a week, sometimes more than 4 drinks a day)
Drug: None
Personal:
Living: With Family
Family History
Family History: Cancer
Allergies / Home Medications
Allergy/AdvReac Type Severity Reaction Status Date / Time
amiodarone Allergy 'my legs Verified 03/24/25 17:28
turned
blue' per
patient
vancomycin Allergy Itching, Verified 03/24/25 15:34
Lip
swelling,
Erythema
�Medication �Instructions �Recorded �Confirmed �Type
levothyroxine 125 mcg tablet 125 mcg PO DAILY Thyroid 12/01/12 03/24/25 History
cholecalciferol (vitamin D3) 50 2,000 unit PO Q48H Supplement 12/02/12 03/24/25 History
mcg (2,000 unit) tablet
atorvastatin 10 mg tablet (Lipitor) 10 mg PO DAILY High cholesterol 07/23/22 03/24/25 History
omeprazole 20 mg tablet,delayed 20 mg PO BID gerd 07/23/22 03/24/25 History
release
apixaban 5 mg tablet (Eliquis) 5 mg PO BID Blood Clot 01/06/23 03/24/25 History
Prevention/Tx
cyanocobalamin (vitamin B-12) 500 500 mcg PO DAILY Supplement 01/06/23 03/24/25 History
mcg tablet
potassium chloride 10 mEq 20 meq PO DAILY Electrolyte 01/06/23 03/24/25 History
tablet,extended release Repletion
darbepoetin joseluis in polysorbat 200 200 mcg SC DAILYPRN PRN Hgb<11 07/15/23 03/24/25 History
mcg/0.4 mL in polysorbate
injection syringe (Aranesp)
gabapentin 100 mg capsule 100 mg PO TID Neurological 07/15/23 03/24/25 History
Condition
albuterol sulfate 90 mcg/actuation 2 puff inhalation R Q6HPRN PRN sob 03/16/24 03/24/25 History
aerosol inhaler
furosemide 40 mg tablet 40 mg PO DAILY Fluid 03/16/24 03/24/25 History
Retention/Swelling
Nutraful 1 cap PO BID Supplement 03/24/25 03/24/25 History
acetaminophen 500 mg tablet 1,000 mg PO TID Pain 03/24/25 03/24/25 History
cefuroxime axetil 500 mg tablet 500 mg PO BID jail 03/24/25 03/24/25 History
dofetilide 250 mcg capsule 250 mcg PO Q12H Heart 03/24/25 03/24/25 History
Disease/Condition
losartan 50 mg tablet 50 mg PO DAILY Heart 03/24/25 03/24/25 History
Disease/Condition
metoprolol succinate 50 mg 50 mg PO DAILY Blood Pressure 03/24/25 03/24/25 History
tablet,extended release 24 hr
Review of Systems
-
History Source: Patient
All other systems: Negative unless noted
Physical Exam
Vital Signs
Temp Pulse Resp BP Pulse Ox
99.5 F 73 16 130/52 95
03/25/25 07:15 03/25/25 07:15 03/25/25 07:15 03/25/25 07:15 03/25/25 07:15
GEN: No distress, awake, Ox3, sitting in chair
HEENT: supple, anicteric, mmm
LUNGS: CTA, no wheezes/rales
CV: Reg, S1/S2, 1/6 systolic murmur, no rubs or gallop
ABD: soft, BS+, NT/ND
EXT: No edema, clubbing or cyanosis, left knee wrapped with Geovanny dressing
NEURO: Gross non-focal
SKIN: No rash, warm, dry, pink
Lab Results
03/25/25 06:58
03/25/25 06:58
Impression / Plan
-
PCP: Nannette Louise PA-C
Chief Technologist: Dr. Maria Del Rosario Cortes
EP: Dr. Jose Eduardo Cortes
Impression:
Presents 03/24/2025 with left knee pain and instability
Left knee prosthetic joint infection despite courses of antibiotics as outpatient failed (hx 6 weeks cefazolin, then 8 weeks daptomycin, and suppressive therapy)
Elevated CRP greater than 270
Paroxysmal atrial fibrillation
-s/p PVI and Atach ablation 12/10/20
- Intolerant to amiodarone after patient developed blue-garibay hyper pigmentation on amiodarone, medication stopped 01/30/2024
-Chronic Eliquis OAC
Chronic HFmrEF
NICM EF 40-45%
Paroxysmal typical atrial flutter 07/23/22
urgent CV in ER restoring SR with blocked PACs and PVCs 07/23/22
Chronic LBBB
Mitral regurgitation
Aortic sclerosis without stenosis
HTN
Hyperlipidemia
Chronic back pain s/p back surgery at [facility] 10/2022
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
Left knee prepatellar bursitis status post I&D 03/18/2024
BORIS w/ CPAP
GERD
H/o bowel obstruction
Hypothyroidism
Exercise mibi 06/06/19: Completed 6 minutes Josesito protocol for 107% MPHR and abnormal ECG with 1.[address] depression II, III, aVF that did not improve until 2 min into recovery, but there was normal perfusion imaging
Cardiac catheterization 08/22/2022:�Nonobstructive coronary artery disease with only minor luminal irregularity, Normal/near normal LVEDP measuring 15 mmHg
Echo 10/04/20: EF 52%, possible mild abnormal relaxation, mild MR
ECHO 07/23/22:�EF 40 to 45%, mild global hypokinesis, stage I diastolic dysfunction, severely dilated left atrium, moderate to severe central mitral regurgitation, mild to moderate AAS with peak/mean gradients 19/13 mmHg, HERMINIA 1.3 cm�, mild TR, PAP 45
to 50 mmHg
LYNETTE 08/22/2022:�EF 45%, mildly reduced systolic function.� Mild to moderate central MR.
Echo 01/07/23: EF 46%, stage II diastolic dysfunction, mod to sev MR, mild peak/mean 16/10 mmHg, mild to mod TR with PAP 62 mmHg
Echo 11/19/2023: EF 48%, mild cLVH, stage I diastolic dysfunction, mild MR, mild with peak/mean gradients 18/10 mmHg, mild AI
Plan:
-Presents 03/24/2025 with left knee pain and instability with concern for left knee prosthetic joint infection despite courses of antibiotics as outpatient failed (hx 6 weeks cefazolin, then 8 weeks daptomycin, and suppressive therapy)
-Being followed by ID as well as orthopedics. Plan is for removal of prosthetic joint with placement of spacer and antibiotic impregnated cement. Tentative OR date 03/29/2025
-History of paroxysmal atrial fibrillation/flutter status post PVI ablation and atrial tach ablation. Patient has been stable from an arrhythmia standpoint maintained on Tikosyn since May 2024.
-Will need to monitor EKG/QT interval with initiation of antibiotics. EKG from 03/24/2025 QTc 463 ms. Would monitor on telemetry as well
-Chronic anticoagulation with Eliquis. Anticipation for OR 03/29/2025. Hold Eliquis 48 hours prior to surgery. If patient should have recurrent atrial fibrillation/flutter off anticoagulation would consider initiation of heparin drip.
-Last echocardiogram was in November 2023 which showed low normal EF of 48% with mild . Will repeat echocardiogram prior to surgery
-Patient had cardiac catheterization in 2022 which showed no significant coronary artery disease. Does not need ischemic evaluation prior to surgery.
-Patient has heart failure with mildly reduced ejection fraction. Appears to be euvolemic on examination. Continue Lasix 40 mg daily. Can be held morning of surgery.
- Continue outpatient cardiac medications including atorvastatin, losartan and metoprolol.
HPI:
Nicolette is an 85 year old female with PMH of chronic HFmrEF, NICM, paroxysmal atrial fibrillation/flutter, LBBB, MR, HTN, HLD, BORIS, hypothyroidism, GERD, MSSA discitis s/p spinal fusion with hardware on chronic suppressive abx since s well as
left knee MSSA soft tissue abscess with septic bursitis. Patient being admitted for septic bursitis of knee. There has been ongoing outpatient treatment with multiple trials of IV antibiotics and chronic oral antibiotics. Now presenting to
emergency department with worsening left knee pain, inability to bear weight and knee wound with drainage/discharge. Patient also noted chills. Patient found to be febrile with temperature of 100.5 on admission.seen by orthopedics who expressed
copious pus from wound now with concern of prosthetic joint infection with possible fistula to tibia. Orthopedics now planning for removal of prosthetic joint with placement of spacer and antibiotic impregnated cement. Cardiology being asked to
see patient for preoperative risk assessment. Tentative surgery on 03/29/2025.
From cardiac standpoint patient last seen in office in January 2025 and was doing well without complaints. EKG showed sinus rhythm with left bundle branch block which is chronic and no evidence of recurrent atrial fibrillation on dofetilide.
Data Reviewed
-
EKG: Report Reviewed by me, Discussed with Physician, Discussed with Nurse, Discussed with Patient and Discussed with Family
Radiology: Report Reviewed by me, Discussed with Physician, Discussed with Nurse, Discussed with Patient and Discussed with Family
Labs: Labs Reviewed by me, Discussed with Physician, Discussed with Nurse, Discussed with Patient and Discussed with Family
Old Records: Reviewed
[2025-03-25 11:52] VITALS: BP 142/75
--- NOTE | 2025-03-25 12:40 | W.PN.HOSP.TC ---
Today's Communication/Plan
-
Assessment / Plan
Assessment / Plan
NAD
Scleral Anicteric
MMM
No JVD
CTABL
RRR, S1/S2
Soft, NT, ND, BS+
Warm, Dry
Left knee is wrapped
AAOx3
Calm
Left knee PJI
Follow up Bcx and Wcx
IVAtb with ancef per ID
ID following
Ortho planning for explanted/spacer/cement on 03/29
Cards consult for clearance
PAFib, now in SR
On eliquis, hold 48hours prior to surgery
Continue dofetilide and BB
Hypothyroid
Continue levothyroxine
HLD
Conitnue statin
Gerd
conitnue ppi
CKD Stage IIIa
Monitor uop
avoid nephrotoxins andn hypotension
HFrEF, nyha class II
Compensated
Continue BB and lasix
Anticipated Discharge: > 48 hours
Subjective/Interval History
-
Date of Service: March 25, 2025
seen and exmained. no new complaints. no acute overnight events
feeling better
tells me planned for surgery on the
Objective Data
-
Labs:
Laboratory Results
03/25/25
06:58
WBC 7.0
Hgb 10.5 L
Hct 31.6 L
Plt Count 155
Sodium 139
Potassium 3.7
Chloride 102
Carbon Dioxide 33 H
BUN 22 H
Creatinine 0.9
Glucose 89
Calcium 7.9 L
Vital Signs:
Vital Signs
Temp Pulse Resp BP Pulse Ox
98.8 F 76 20 142/75 96
03/25/25 11:52 03/25/25 11:52 03/25/25 11:52 03/25/25 11:52 03/25/25 11:52
I&O
03/24/25 03/25/25 03/26/25
06:59 06:59 06:59
Intake Total 480 / 480
Balance 480 / 480
--- NOTE | 2025-03-25 12:54 | W.PN.ID1 ---
Date of Service
Date of Service: March 25, 2025
Today's Communication
Change cefazolin to cefepime.
Assessment / Plan
# Fever
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
# Elevated CRP >270
- Blood cx's pending
- Purulent drainage from sinus tract cx GNR
- Agree with Ortho plan - for 2 stage revision on Thu. Please send multiple OR aerobic and anaerobic cultures.
- Replace cefazolin with cefepime pending cx data.
- Trend fever.
Conditions present on admission.
Afib on dofetilide
CHF
HTN
HLD
Hypothyroidism
Depression
BORIS
Interstitial cystitis
MSSA (pansensitive) bacteremia 10/01/22 ([facility])
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
MSSA left knee bursitis s/p I+D 03/18/24
Left knee TKR 2016
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
Right knee TKR
Arthroscopy right shoulder.
Tonsillectomy.
Appendectomy.
Chief Complaint
-: Fever and Other (knee infection)
Subjective / Review of Systems
Profuse sweat last night.
Vital Signs / Physical Exam
Vital Signs
Vital Signs
Temp Pulse Resp BP Pulse Ox
98.8 F 76 20 142/75 96
03/25/25 11:52 03/25/25 11:52 03/25/25 11:52 03/25/25 11:52 03/25/25 11:52
Selected Entries
03/25/25
03:00
Temp 100.4 F H
Physical Exam
Constitutional: No Acute Distress and Comfortable
Pulmonary: Clear
Gastrointestinal: Soft, Non Tender and Non Distended
Extremities: Edema (LLE)
Wound: Other (Left knee wound dressing dry)
Neurological: AO x 3
Objective Data
Lab Data
Lab Results
03/25/25 06:58
03/25/25 06:58
ESR 78 mm/hour (0-20) H 03/24/25 14:25
Estimated Creat Clear 48 ml/min 03/25/25 06:58
Lactic Acid 1.0 mmol/L (0.7-2.0) 03/24/25 12:22
Total Bilirubin 0.7 mg/dl (0.2-1.3) 03/24/25 12:22
AST 23 U/L (14-36) 03/24/25 12:22
ALT 15 U/L (0-35) 03/24/25 12:22
Alkaline Phosphatase 55 U/L (38-126) 03/24/25 12:22
C-Reactive Protein > 270.00 mg/L (0.0-10.00) H 03/24/25 14:25
Most recent labs reviewed.
Micro Results:
03/24/25 14:25 Wound Culture - Preliminary
Knee - Left Gram negative bacilli
Gram Stain - Preliminary
03/24/25 20:21 MRSA Screen - Pending
Nose
03/24/25 14:25 Blood Culture - Pending
Blood/Venous
03/24/25 14: Blood Culture - Pending
Blood/Venous
03/24/25 Left knee XRAY: Intact total left knee arthroplasty hardware. No overt complications identified radiographically. No acute fractures or dislocation. Small to moderate suprapatellar joint effusion. Soft tissues otherwise grossly unremarkable.
[2025-03-25 15:38] VITALS: BP 131/64
[2025-03-25] MEDS: STERILE WATER FOR INJECTION 10 ML IV ×2 (16:40→23:59)
[2025-03-25] MEDS: MAXIPIME 1000 MG IV (16:40)
[2025-03-25 19:38] VITALS: BP 114/60
[2025-03-25 23:15] VITALS: BP 128/57
[2025-03-26 03:45] VITALS: BP 118/57
[2025-03-26] MEDS: STERILE WATER FOR INJECTION 10 ML IV (05:26)
[2025-03-26] MEDS: SYNTHROID 125 MCG PO (05:26)
[2025-03-26] MEDS: MAXIPIME 1000 MG IV ×2 (05:26)
[2025-03-26 05:48] VITALS: BMI 27.7
[2025-03-26 07:00] VITALS: BP 115/89
[2025-03-26] MEDS: LIPITOR 10 MG PO (08:05)
[2025-03-26] MEDS: NEURONTIN 100 MG PO ×3 (08:05→20:22)
[2025-03-26] MEDS: PROTONIX 40 MG PO ×2 (08:05→20:23)
[2025-03-26] MEDS: ELIQUIS 5 MG PO (08:05)
[2025-03-26] MEDS: KCL 20 MEQ PO (08:05)
[2025-03-26] MEDS: TIKOSYN 250 MCG PO ×2 (08:05→20:23)
[2025-03-26] MEDS: COZAAR 50 MG PO (08:11)
[2025-03-26] MEDS: TOPROL XL 50 MG PO (08:11)
[2025-03-26] MEDS: LASIX 40 MG PO (08:11)
--- NOTE | 2025-03-26 09:05 | W.PN.HOSP.TC ---
Addendum entered and electronically signed by Ranjeet Nguyen MD 03/26/25 11:18:
discussed with ortho cards and ID
-Hold atb until post procedure to improve IOP cx yeild
-Hold AC starting tonight
Original Note:
Today's Communication/Plan
-
Assessment / Plan
Assessment / Plan
NAD
Scleral Anicteric
MMM
No JVD
CTABL
RRR, S1/S2
Soft, NT, ND, BS+
Warm, Dry
Left knee is wrapped
AAOx3
Calm
Left knee PJI
Follow up Bcx and Wcx
IVAtb with cefepime per ID
ID following
Ortho planning for explanted/spacer/cement on 03/29
Cards consult for clearance
PAFib, now in SR
On eliquis, hold 48hours prior to surgery (hold order already placed)
Continue dofetilide and BB
Hypothyroid
Continue levothyroxine
HLD
Conitnue statin
Gerd
conitnue ppi
CKD Stage IIIa
Monitor uop
avoid nephrotoxins andn hypotension
HFrEF, nyha class II
Compensated
Continue BB and lasix
Anticipated Discharge: > 48 hours
Subjective/Interval History
-
Date of Service: March 26, 2025
seen and examined no new complaints. no acute ovenright events
Objective Data
-
Vital Signs:
Vital Signs
Temp Pulse Resp BP Pulse Ox
98.2 F 83 12 115/89 95
03/26/25 07:00 03/26/25 08:11 03/26/25 07:00 03/26/25 08:11 03/26/25 07:00
I&O
03/25/25 03/26/25 03/27/25
06:59 06:59 06:59
Intake Total 480 / 480 1480 / 1480
Balance 480 / 480 1480 / 1480
--- NOTE | 2025-03-26 10:19 | W.PN.ORTHO ---
Today's Communication / Plan
-
Plan for surgery on
Assessment
.
Distal Motor Intact: Yes
Dressing:
Clean, dry and intact.
Assessment:
Periprosthetic joint infection
Plan for surgery Thursday with I&D, removal of knee implants and placement of knee spacer with antibiotic cement.
Have discussed with pharmacy. Plan to use Daptomycin and Tobramycin impregnated cement.
Will stop Eliquis today.
NPO after MN Thursday for surgery .
Appreciate medical team assistance (Hospitalists, ID and cardiology)
Plan
.
Activity:
Out of bed.
PT/OT
Subjective
.
.:
Patient resting comfortably.
Sitting in chair
Vital Signs and Labs
.
Vital Signs and Labs:
Lab Results
03/25/25 06:58
03/25/25 06:58
Temp Pulse Resp BP Pulse Ox
98.2 F 83 12 115/89 95
03/26/25 07:00 03/26/25 08:11 03/26/25 07:00 03/26/25 08:11 03/26/25 07:00
Physical Exam
-
Pulm: nonlabored
CV: regular
Abd: benign
LLE: Dressing intact. Small pinpoint wound about the pes with drainage. Calf soft. NVI distally.
[2025-03-26 11:00] VITALS: BP 105/45
--- NOTE | 2025-03-26 12:21 | W.PN.ID1 ---
Date of Service
Date of Service: March 26, 2025
Today's Communication
DC cefepime (d1) to increase intra-operative yield.
Assessment / Plan
# Fever - resolved
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
# Elevated CRP >270
- Blood cx's neg to date
- Purulent drainage from sinus tract cx Enterobacter cloacae
- Agree with Ortho plan - for 2 stage revision on Thu. Please send multiple OR aerobic and anaerobic cultures.
- Pt defervesced. Can DC cefepime (d1) to increase intra-operative yield.
Conditions present on admission.
Afib on dofetilide
CHF
HTN
HLD
Hypothyroidism
Depression
BORIS
Interstitial cystitis
MSSA (pansensitive) bacteremia 10/01/22 ([facility])
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
MSSA left knee bursitis s/p I+D 03/18/24
Left knee TKR 2015
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
Right knee TKR
Arthroscopy right shoulder.
Tonsillectomy.
Appendectomy.
Chief Complaint
-: Fever and Other (knee infection)
Subjective / Review of Systems
+ L knee pain
Vital Signs / Physical Exam
Vital Signs
Vital Signs
Temp Pulse Resp BP Pulse Ox
98.4 F 77 20 105/45 99
03/26/25 11:00 03/26/25 11:00 03/26/25 11:00 03/26/25 11:00 03/26/25 11:00
Physical Exam
Constitutional: No Acute Distress and Comfortable
Pulmonary: Clear
Gastrointestinal: Soft, Non Tender and Non Distended
Extremities: Edema (LLE)
Wound: Other (Left knee wound dressing dry)
Neurological: AO x 3
Objective Data
Lab Data
Lab Results
03/25/25 06:58
03/25/25 06:58
ESR 78 mm/hour (0-20) H 03/24/25 14:25
Estimated Creat Clear 48 ml/min 03/25/25 06:58
Lactic Acid 1.0 mmol/L (0.7-2.0) 03/24/25 12:22
Total Bilirubin 0.7 mg/dl (0.2-1.3) 03/24/25 12:22
AST 23 U/L (14-36) 03/24/25 12:22
ALT 15 U/L (0-35) 03/24/25 12:22
Alkaline Phosphatase 55 U/L (38-126) 03/24/25 12:22
C-Reactive Protein > 270.00 mg/L (0.0-10.00) H 03/24/25 14:25
Most recent labs reviewed.
Micro Results:
03/24/25 14:25 Wound Culture - Final
Knee - Left Enterobacter cloacae
Gram Stain - Final
03/24/25 20:21 MRSA Screen - Final
Nose No Methicillin Resistant Staphylococcus aureus isolated.
03/24/25 14:25 Blood Culture - Preliminary
Blood/Venous No Growth in 24 hours- Final report to follow
03/24/25 14: Blood Culture - Preliminary
Blood/Venous No Growth in 24 hours- Final report to follow
03/24/25 Left knee XRAY: Intact total left knee arthroplasty hardware. No overt complications identified radiographically. No acute fractures or dislocation. Small to moderate suprapatellar joint effusion. Soft tissues otherwise grossly unremarkable.
Care Review
Plan reviewed with: Physician (Dr. Dory Nguyen)
[2025-03-26 15:00] VITALS: BP 134/65
[2025-03-26 19:40] VITALS: BP 119/53
[2025-03-26] MEDS: TYLENOL 650 MG PO (20:22)
[2025-03-26 23:15] VITALS: BP 116/47
[2025-03-27 03:35] VITALS: BP 137/66
[2025-03-27 06:00] VITALS: BMI 27.7
[2025-03-27] MEDS: SYNTHROID 125 MCG PO (06:01)
[2025-03-27 07:42] VITALS: BP 139/62
[2025-03-27] MEDS: KCL 20 MEQ PO (08:56)
[2025-03-27] MEDS: COZAAR 50 MG PO (08:56)
[2025-03-27] MEDS: LASIX 40 MG PO (08:57)
[2025-03-27] MEDS: TIKOSYN 250 MCG PO ×2 (08:57→21:14)
[2025-03-27] MEDS: LIPITOR 10 MG PO (08:57)
[2025-03-27] MEDS: NEURONTIN 100 MG PO ×3 (08:57→21:14)
[2025-03-27] MEDS: TOPROL XL 50 MG PO (08:57)
[2025-03-27] MEDS: PROTONIX 40 MG PO ×2 (08:57→21:14)
[2025-03-27 11:19] VITALS: BP 128/68
--- NOTE | 2025-03-27 14:42 | W.PN.HOSP.TC ---
Today's Communication/Plan
-
Continue to hold Eliquis and antibiotics
Continue pain medication.
OR on thursday
Assessment / Plan
Assessment / Plan
Left knee PJI
Ongoing low-grade fevers with sweats. Enterobacter cloacae from the wound culture.
Antibiotics currently on hold for higher yield in the OR. Blood pressure stable. Nontoxic looking. ID following
Ortho planning for explanted/spacer/cement on 03/29
Cards clearance noted
PAFib, now in SR
On eliquis, hold 48hours prior to surgery (hold order already placed)
Continue dofetilide and BB
Hypothyroid
Continue levothyroxine
HLD
Conitnue statin
Gerd
conitnue ppi
CKD Stage IIIa
Monitor uop
avoid nephrotoxins andn hypotension
HFrEF, nyha class II
Compensated
Continue BB and lasix
Anticipated Discharge: > 48 hours
Subjective/Interval History
-
Date of Service: March 27, 2025
Pain from the left knee is okay. She had low-grade fever with sweats yesterday. Doing good so far.
Denies any nausea vomiting. No abdominal pain. Denies shortness of breath.
Objective Data
-
Vital Signs:
Vital Signs
Temp Pulse Resp BP Pulse Ox
99.6 F 76 16 128/68 95
03/27/25 11:19 03/27/25 11:19 03/27/25 11:19 03/27/25 11:19 03/27/25 11:19
I&O
03/26/25 03/27/25 03/28/25
06:59 06:59 06:59
Intake Total 1480 / 1480 480 / 480
Balance 1480 / 1480 480 / 480
Physical Exam
-
General: No Apparent Distress
Respiratory: Clear to Auscultation and Non Labored Respirations; Negative Accessory Resp Muscle Use
Cardiac: Regular Rhythm and S1/S2; Negative Tachycardic
GI: Soft
Neuro: AO x 3
Psych: Calm; Negative Confused
[2025-03-27 15:00] VITALS: BP 113/54
--- NOTE | 2025-03-27 15:27 | CM ---
Chart reviewed. Care ongoing.
Plan for OR on Thursday
CM will cont to follow for d/c needs
Plan: Home, no needs at this time
[2025-03-27] MEDS: TYLENOL 650 MG PO (15:53)
--- NOTE | 2025-03-27 16:12 | W.PN.ID1 ---
Date of Service
Date of Service: March 27, 2025
Today's Communication
Observe off abx.
Assessment / Plan
# Fever recurred off abx
# Left knee PJI
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
# Elevated CRP >270
- Blood cx's neg to date
- Purulent drainage from sinus tract cx Enterobacter cloacae
- Ortho plan - for 2 stage revision on Thu. Please send multiple OR aerobic and anaerobic cultures.
- cefepime (d1) dc'd on 03/26 to increase intra-operative yield.
- Follow temps.
Conditions present on admission.
Afib on dofetilide
CHF
HTN
HLD
Hypothyroidism
Depression
BORIS
Interstitial cystitis
MSSA (pansensitive) bacteremia 10/01/22 ([facility])
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
MSSA left knee bursitis s/p I+D 03/18/24
Left knee TKR 2015
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
Right knee TKR
Arthroscopy right shoulder.
Tonsillectomy.
Appendectomy.
Chief Complaint
-: Fever and Other (knee infection)
Subjective / Review of Systems
Left knee pain stable.
Vital Signs / Physical Exam
Vital Signs
Vital Signs
Temp Pulse Resp BP Pulse Ox
101.1 F H 61 16 113/54 94
03/27/25 15:00 03/27/25 15:00 03/27/25 15:00 03/27/25 15:00 03/27/25 15:00
Physical Exam
Constitutional: No Acute Distress and Comfortable
Pulmonary: Clear
Gastrointestinal: Soft, Non Tender and Non Distended
Extremities: Edema (LLE)
Wound: Other (Left knee wound dressing dry)
Neurological: AO x 3
Objective Data
Lab Data
Lab Results
03/25/25 06:58
03/25/25 06:58
ESR 78 mm/hour (0-20) H 03/24/25 14:25
Estimated Creat Clear 48 ml/min 03/25/25 06:58
Lactic Acid 1.0 mmol/L (0.7-2.0) 03/24/25 12:22
Total Bilirubin 0.7 mg/dl (0.2-1.3) 03/24/25 12:22
AST 23 U/L (14-36) 03/24/25 12:22
ALT 15 U/L (0-35) 03/24/25 12:22
Alkaline Phosphatase 55 U/L (38-126) 03/24/25 12:22
C-Reactive Protein > 270.00 mg/L (0.0-10.00) H 03/24/25 14:25
Most recent labs reviewed.
Micro Results:
03/24/25 14:25 Blood Culture - Preliminary
Blood/Venous No Growth in 72 hours- Final report to follow
03/24/25 14:25 Blood Culture - Preliminary
Blood/Venous No Growth in 72 hours- Final report to follow
03/24/25 14:25 Wound Culture - Final
Knee - Left Enterobacter cloacae
Gram Stain - Final
03/24/25 20:21 MRSA Screen - Final
Nose No Methicillin Resistant Staphylococcus aureus isolated.
03/24/25 Left knee XRAY: Intact total left knee arthroplasty hardware. No overt complications identified radiographically. No acute fractures or dislocation. Small to moderate suprapatellar joint effusion. Soft tissues otherwise grossly unremarkable.
--- NOTE | 2025-03-27 16:59 | W.PN.CARDCBS ---
Today's Communication / Plan
-
RECOMMENDATIONS:
- Continue to monitor periodic QTc
- Apixaban is on hold with planned surgery on 03/29
- Echocardiogram has been completed. Will review later.
- Anticipate no further evaluation before the planned surgical procedure
Impression / Plan
-
PCP: Nannette Louise PA-C
Rail Setter: Dr. Maria Del Rosario Cortes
EP: Dr. Jose Eduardo Cortes
Impression:
Presents 03/24/2025 with left knee pain and instability
Left knee prosthetic joint infection despite courses of antibiotics as outpatient failed (hx 6 weeks cefazolin, then 8 weeks daptomycin, and suppressive therapy): Plan is removal of hardware and placement of spacer
Elevated CRP greater than 270
Paroxysmal atrial fibrillation
-s/p PVI and Atach ablation 12/10/20
- Intolerant to amiodarone after patient developed blue-garibay hyper pigmentation on amiodarone, medication stopped 01/30/2024
-Chronic Eliquis OAC
Chronic HFmrEF
NICM EF 40-45%
Paroxysmal typical atrial flutter 07/23/22
urgent CV in ER restoring SR with blocked PACs and PVCs 07/23/22
Chronic LBBB
Mitral regurgitation
Aortic sclerosis without stenosis
HTN
Hyperlipidemia
Chronic back pain s/p back surgery at [facility] 10/2022
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
Left knee prepatellar bursitis status post I&D 03/18/2024
BORIS w/ CPAP
GERD
H/o bowel obstruction
Hypothyroidism
Exercise mibi 06/06/19: Completed 6 minutes Josesito protocol for 107% MPHR and abnormal ECG with 1.[address] depression II, III, aVF that did not improve until 2 min into recovery, but there was normal perfusion imaging
Cardiac catheterization 08/22/2022:�Nonobstructive coronary artery disease with only minor luminal irregularity, Normal/near normal LVEDP measuring 15 mmHg
Echo 10/04/20: EF 52%, possible mild abnormal relaxation, mild MR
ECHO 07/23/22:�EF 40 to 45%, mild global hypokinesis, stage I diastolic dysfunction, severely dilated left atrium, moderate to severe central mitral regurgitation, mild to moderate AAS with peak/mean gradients 19/13 mmHg, HERMINIA 1.3 cm�, mild TR, PAP 45
to 50 mmHg
LYNETTE 08/22/2022:�EF 45%, mildly reduced systolic function.� Mild to moderate central MR.
Echo 01/07/23: EF 46%, stage II diastolic dysfunction, mod to sev MR, mild peak/mean 16/10 mmHg, mild to mod TR with PAP 62 mmHg
Echo 11/19/2023: EF 48%, mild cLVH, stage I diastolic dysfunction, mild MR, mild with peak/mean gradients 18/10 mmHg, mild AI
Plan:
-Presents 03/24/2025 with left knee pain and instability with concern for left knee prosthetic joint infection despite courses of antibiotics as outpatient failed (hx 6 weeks cefazolin, then 8 weeks daptomycin, and suppressive therapy)
-Being followed by ID as well as orthopedics. Plan is for removal of prosthetic joint with placement of spacer and antibiotic impregnated cement. Tentative OR date 03/29/2025
-History of paroxysmal atrial fibrillation/flutter status post PVI ablation and atrial tach ablation. Patient has been stable from an arrhythmia standpoint maintained on Tikosyn since May 2024.
-Will need to monitor EKG/QT interval with initiation of antibiotics. EKG from 03/24/2025 QTc 463 ms. ECG from today with LBBB and QTc 508
-Chronic anticoagulation with Eliquis. Anticipation for OR 03/29/2025. Hold Eliquis 48 hours prior to surgery. If patient should have recurrent atrial fibrillation/flutter off anticoagulation would consider initiation of heparin drip.
Eliquis last dose was on 03/26/2025 @ 08:05
-Last echocardiogram was in November 2023 which showed low normal EF of 48% with mild .
Echocardiogram done today: Patient was actually in echo when I initially went to see her. Echo will be read later today
-Patient had cardiac catheterization in 2022 which showed no significant coronary artery disease. Does not need ischemic evaluation prior to surgery.
-Patient has heart failure with mildly reduced ejection fraction. Appears to be euvolemic on examination. Continue Lasix 40 mg daily. Can be held morning of surgery.
- Continue outpatient cardiac medications including atorvastatin, losartan and metoprolol.
HPI:
Nicolette is an 85 year old female with PMH of chronic HFmrEF, NICM, paroxysmal atrial fibrillation/flutter, LBBB, MR, HTN, HLD, BORIS, hypothyroidism, GERD, MSSA discitis s/p spinal fusion with hardware on chronic suppressive abx since well as
left knee MSSA soft tissue abscess with septic bursitis. Patient being admitted for septic bursitis of knee. There has been ongoing outpatient treatment with multiple trials of IV antibiotics and chronic oral antibiotics. Now presenting to
emergency department with worsening left knee pain, inability to bear weight and knee wound with drainage/discharge. Patient also noted chills. Patient found to be febrile with temperature of 100.5 on admission.seen by orthopedics who expressed
copious pus from wound now with concern of prosthetic joint infection with possible fistula to tibia. Orthopedics now planning for removal of prosthetic joint with placement of spacer and antibiotic impregnated cement. Cardiology being asked to
see patient for preoperative risk assessment. Tentative surgery on 03/29/2025.
From cardiac standpoint patient last seen in office in January 2025 and was doing well without complaints. EKG showed sinus rhythm with left bundle branch block which is chronic and no evidence of recurrent atrial fibrillation on dofetilide.
Progress Note - Rail Setter
Subjective
Date of Service: March 27, 2025
She has been feeling well and is without complaints
Objective
Labs:
03/25/25 06:58
03/25/25 06:58
Labs
Hgb 10.5 g/dL (12.0-16.0) L 03/25/25 06:58
Hct 31.6 % (37.0-47.0) L 03/25/25 06:58
Plt Count 155 10^3/uL (130-400) 03/25/25 06:58
Sodium 139 mmol/L (135-145) 03/25/25 06:58
Potassium 3.7 mmol/L (3.5-5.1) 03/25/25 06:58
BUN 22 mg/dl (7-17) H 03/25/25 06:58
Creatinine 0.9 mg/dL (0.6-1.0) 03/25/25 06:58
Glucose 89 mg/dl (70-99) 03/25/25 06:58
Vital Signs and I&O:
Vital Signs
Temp Pulse Resp BP Pulse Ox
101.1 F H 61 16 113/54 94
03/27/25 15:00 03/27/25 15:00 03/27/25 15:00 03/27/25 15:00 03/27/25 15:00
Vital Signs
Temp Pulse Resp BP Pulse Ox
101.1 F H 61 16 113/54 94
03/27/25 15:00 03/27/25 15:00 03/27/25 15:00 03/27/25 15:00 03/27/25 15:00
Intake & Output
03/24/25 03/25/25 03/26/25 03/27/25
23:59 23:59 23:59 23:59
Intake Total 1480 / 1480 720 / 720 480 / 480
Balance 1480 / 1480 720 / 720 480 / 480
Physical Exam
Physical Exam
GEN: AAO x 3. Patient seen lying in stretcher. She is in no acute distress, pleasant and conversant
HEENT: NC/AT, sclera are anicteric
LUNGS: Clear anterior and lateral lung johnson
CV: Regular rate and rhythm. Normal S1/S2.
ABD : Soft, Bowel sounds are present.
EXT: No CCE
NEURO: No focal neurologic deficits
[2025-03-27 19:00] VITALS: BP 109/57
[2025-03-27 23:00] VITALS: BP 110/44
[2025-03-28 03:00] VITALS: BP 133/67
[2025-03-28 06:00] VITALS: BMI 27.8
[2025-03-28] MEDS: SYNTHROID 125 MCG PO (06:24)
[2025-03-28 07:00] VITALS: BP 129/99
[2025-03-28 07:18] LABS: Blood Urea Nitrogen 23 mg/dl (7-17); Calcium 8.6 mg/dl (8.4-10.2); Carbon Dioxide 33 mmol/L (22-30); Chloride 102 mmol/L (98-107); Estimated Creatinine Clearance 48 ml/min; Glucose 94 mg/dl (70-99); Potassium 4.7 mmol/L (3.5-5.1); Sodium 139 mmol/L (135-145); eGFR > 60.00
[2025-03-28 07:33] LABS: Hematocrit 34.7 % (37.0-47.0); Hemoglobin 11.4 g/dL (12.0-16.0); Mean Corp Hgb Conc. 32.9 g/dL (33.0-37.0); Mean Corpuscular Volume 95.3 fL (81.0-99.0); Platelet Count 223 10^3/uL (130-400); Red Cell Dist. Width 12.5 % (11.5-14.5)
--- NOTE | 2025-03-28 07:53 | W.PN.UPDATE ---
Update Note
Progress Note Update
85F suspected sinus tract of medial proximal tibia with underlying L TKA PJI
Plan for surgery Thursday with I&D, removal of knee implants and placement of knee spacer with antibiotic cement. Intraop Cxs
Have discussed with pharmacy. Plan to use Daptomycin and Tobramycin impregnated cement.
Eliquis on hold
NPO after MN Thursday for surgery . Irrigation products ordered, consent on file.
ABX on hold to optimize intraop Cx yield.
Appreciate medical team assistance (Hospitalists, ID and cardiology)
[2025-03-28] MEDS: TIKOSYN 250 MCG PO ×2 (09:23→19:47)
[2025-03-28] MEDS: NEURONTIN 100 MG PO ×3 (09:23→21:19)
[2025-03-28] MEDS: PROTONIX 40 MG PO ×2 (09:24→19:47)
[2025-03-28] MEDS: LIPITOR 10 MG PO (09:24)
[2025-03-28] MEDS: KCL 20 MEQ PO (09:24)
[2025-03-28] MEDS: TOPROL XL 50 MG PO (09:27)
[2025-03-28] MEDS: LASIX 40 MG PO (09:27)
[2025-03-28] MEDS: COZAAR 50 MG PO (09:27)
[2025-03-28 11:59] VITALS: BP 113/68
--- NOTE | 2025-03-28 13:51 | W.PN.ID1 ---
Date of Service
Date of Service: March 28, 2025
Today's Communication
- After surgery, start Ertapenem 1g IV q24 [address] Picc.
Assessment / Plan
# Fever recurred off abx
# Left knee PJI
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
# Elevated CRP >270
- Blood cx's neg to date
- Purulent drainage from sinus tract cx Enterobacter cloacae
- Plan for surgery tomorrow with I&D, removal of knee implants and placement of knee spacer with antibiotic cement.
Please send multiple OR aerobic and anaerobic cultures.
- cefepime (d1) dc'd on 03/26 to increase intra-operative yield.
- Follow temps.
- After surgery, start Ertapenem 1g IV q24 [address] Picc[address]
- Ertapenem 1 g IV q24 x 6 weeks through 05/11/2025.
Follow weekly CMP, CBC/diff, ESR, CRP
- Infusion sheet submitted to caseworker intake 03/28 to start process.
Conditions present on admission.
Afib on dofetilide
CHF
HTN
HLD
Hypothyroidism
Depression
BORIS
Interstitial cystitis
MSSA (pansensitive) bacteremia 10/01/22 ([facility])
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
MSSA left knee bursitis s/p I+D 03/18/24
Left knee TKR 2015
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
Right knee TKR
Arthroscopy right shoulder.
Tonsillectomy.
Appendectomy.
Chief Complaint
-: Fever and Other (knee infection)
Subjective / Review of Systems
OR tomorrow.
Vital Signs / Physical Exam
Vital Signs
Vital Signs
Temp Pulse Resp BP Pulse Ox
98 F 62 16 113/68 97
03/28/25 11:59 03/28/25 11:59 03/28/25 11:59 03/28/25 11:59 03/28/25 11:59
Selected Entries
03/27/25
15:00
Temp 101.1 F H
Physical Exam
Constitutional: No Acute Distress
Cardiovascular: Regular Rate and S1/S2
Pulmonary: Clear
Gastrointestinal: Soft, Non Tender and Non Distended
Extremities: Edema (LLE)
Wound: Other (Left knee wound dressing dry)
Neurological: AO x 3
Objective Data
Lab Data
Lab Results
03/28/25 06:19
03/28/25 06:19
ESR 78 mm/hour (0-20) H 03/24/25 14:25
Estimated Creat Clear 48 ml/min 03/28/25 06:19
Lactic Acid 1.0 mmol/L (0.7-2.0) 03/24/25 12:22
Total Bilirubin 0.7 mg/dl (0.2-1.3) 03/24/25 12:22
AST 23 U/L (14-36) 03/24/25 12:22
ALT 15 U/L (0-35) 03/24/25 12:22
Alkaline Phosphatase 55 U/L (38-126) 03/24/25 12:22
C-Reactive Protein > 270.00 mg/L (0.0-10.00) H 03/24/25 14:25
Most recent labs reviewed.
Micro Results:
03/24/25 14:25 Blood Culture - Preliminary
Blood/Venous No Growth in 72 hours- Final report to follow
03/24/25 14:25 Blood Culture - Preliminary
Blood/Venous No Growth in 72 hours- Final report to follow
03/24/25 14:25 Wound Culture - Final
Knee - Left Enterobacter cloacae
Gram Stain - Final
03/24/25 20:21 MRSA Screen - Final
Nose No Methicillin Resistant Staphylococcus aureus isolated.
03/24/25 Left knee XRAY: Intact total left knee arthroplasty hardware. No overt complications identified radiographically. No acute fractures or dislocation. Small to moderate suprapatellar joint effusion. Soft tissues otherwise grossly unremarkable.
--- NOTE | 2025-03-28 14:12 | W.PN.HOSP.TC ---
Today's Communication/Plan
-
OR tomorrow
Assessment / Plan
Assessment / Plan
Left knee PJI
Ongoing low-grade fevers with sweats. Enterobacter cloacae from the wound culture.
Antibiotics currently on hold for higher yield in the OR. Blood pressure stable. Nontoxic looking. ID following
Ortho planning for explanted/spacer/cement on 03/29
Cards clearance noted
PAFib, now in SR
On eliquis, hold 48hours prior to surgery (hold order already placed)
Continue dofetilide and BB
Hypothyroid
Continue levothyroxine
HLD
Conitnue statin
Gerd
conitnue ppi
CKD Stage IIIa
Monitor uop
avoid nephrotoxins andn hypotension
HFrEF, nyha class II
Compensated
Continue BB and lasix
Anticipated Discharge: > 48 hours
Subjective/Interval History
-
Date of Service: March 28, 2025
Overnight events. Voices no specific complaints.
Denies fever chills today. Had a shower and feels good.
Denies shortness of breath or chest pain.
Objective Data
-
Labs:
Laboratory Results
03/28/25
06:19
WBC 5.2
Hgb 11.4 L
Hct 34.7 L
Plt Count 223 D
Sodium 139
Potassium 4.7 D
Chloride 102
Carbon Dioxide 33 H
BUN 23 H
Creatinine 0.9
Glucose 94
Calcium 8.6
Vital Signs:
Vital Signs
Temp Pulse Resp BP Pulse Ox
98 F 62 16 113/68 97
03/28/25 11:59 03/28/25 11:59 03/28/25 11:59 03/28/25 11:59 03/28/25 11:59
I&O
03/27/25 03/28/25 03/29/25
06:59 06:59 06:59
Intake Total 480 / 480 860 / 860
Balance 480 / 480 860 / 860
Physical Exam
-
General: No Apparent Distress
Respiratory: Non Labored Respirations; Negative Accessory Resp Muscle Use
Cardiac: Regular Rhythm
GI: Soft and Nontender
Neuro: AO x 3
Psych: Calm
Data Reviewed
-
Labs: Labs Reviewed by me
--- NOTE | 2025-03-28 14:17 | W.PN.CARDCBS ---
Addendum entered and electronically signed by Sampson Chaves MD 03/28/25 17:08:
I saw and examined the patient.
The Rumper's note was reviewed and I agree with the note.
Comment:
GEN: No distress, awake, Ox3
HEENT: supple, anicteric, mmm
LUNGS: CTA, no wheezes/rales
CV: Reg, S1/S2, 1/6 syst LSB, no gallop
ABD: soft, BS+, NT/ND
EXT: No edema
NEURO: Gross non-focal
SKIN: No rash
PLan:
Okay for OR for joint spacer.
Continue Tikosyn 250 mcg p.o. every 12. Continue Toprol. Holding Eliquis for surgery tomorrow. Resume postoperatively. Remains in sinus rhythm. Continue telemetry postoperatively
Blood pressure is overall stable. Continue metoprolol and losartan.
Original Note:
Today's Communication / Plan
-
Patient anticipates surgery tomorrow
Continue with Tikosyn and Lasix as ordered, follow-up ECG postop
No indication for heparin bridge at this time unless patient has recurrent atrial arrhythmia
Impression / Plan
-
PCP: Nannette Louise PA-C
[facility] [employer] Specialists: Dr. Maria Del Rosario Cortes
EP: Dr. Jose Eduardo Cortes
Impression:
Presents 03/24/2025 with left knee pain and instability
Left knee prosthetic joint infection despite courses of antibiotics as outpatient failed (hx 6 weeks cefazolin, then 8 weeks daptomycin, and suppressive therapy): Plan is removal of hardware and placement of spacer
Elevated CRP greater than 270
Chronic HFmrEF
NICM EF 40-45% by echo 2022, stable and improved at 50% by echo 03/27/2025
Paroxysmal atrial fibrillation
s/p PVI and Atach ablation 12/10/20
Intolerant to amiodarone after patient developed blue-garibay hyper pigmentation on amiodarone, medication stopped 01/30/2024
Chronic Tikosyn therapy since 05/2024
Chronic Eliquis OAC
Last dose of Eliquis 03/26/2025 AM
Paroxysmal typical atrial flutter 07/23/22
s/p urgent CV in ER restoring SR with blocked PACs and PVCs 07/23/22
Chronic LBBB
Mitral regurgitation
Aortic sclerosis without stenosis
HTN
Hyperlipidemia
Chronic back pain s/p back surgery at [facility] 10/2022
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
Left knee prepatellar bursitis status post I&D 03/18/2024
BORIS w/ CPAP
GERD
H/o bowel obstruction
Hypothyroidism
Exercise mibi 06/06/19: Completed 6 minutes Josesito protocol for 107% MPHR and abnormal ECG with 1.[address] depression II, III, aVF that did not improve until 2 min into recovery, but there was normal perfusion imaging
Cardiac catheterization 08/22/2022:�Nonobstructive coronary artery disease with only minor luminal irregularity, Normal/near normal LVEDP measuring 15 mmHg
Echo 10/04/20: EF 52%, possible mild abnormal relaxation, mild MR
ECHO 07/23/22:�EF 40 to 45%, mild global hypokinesis, stage I diastolic dysfunction, severely dilated left atrium, moderate to severe central mitral regurgitation, mild to moderate AAS with peak/mean gradients 19/13 mmHg, HERMINIA 1.3 cm�, mild TR, PAP 45
to 50 mmHg
LYNETTE 08/22/2022:�EF 45%, mildly reduced systolic function.� Mild to moderate central MR.
Echo 01/07/23: EF 46%, stage II diastolic dysfunction, mod to sev MR, mild peak/mean 16/10 mmHg, mild to mod TR with PAP 62 mmHg
Echo 11/19/2023: EF 48%, mild cLVH, stage I diastolic dysfunction, mild MR, mild with peak/mean gradients 18/10 mmHg, mild AI
Echo 03/27/2025: EF 50%, no WMA, mild peak/mean 16/9 mmHg, mild aortic insufficiency, mild to moderate MR, trace TR with PAP 35 mmHg
Plan:
-Admitted 03/24/2025 with left knee pain and instability with concern for left knee prosthetic joint infection despite courses of antibiotics as outpatient failed (previously completed 6 weeks cefazolin, then 8 weeks daptomycin, and suppressive
therapy)
-Plan is for removal of prosthetic joint with placement of spacer and antibiotic impregnated cement. Tentative OR date 03/29/2025
-Patient has known paroxysmal atrial fibrillation/flutter status post PVI ablation and atrial tach ablation. Patient has been stable from an arrhythmia standpoint maintained on Tikosyn since May 2024.
-QTc stable at 498 ms on my review of ECG from 03/28/2025. Outpatient dose of Tikosyn 250 mcg every 12 hours has been continued
-Last dose of Eliquis was 03/26/2025 AM. No plans for heparin bridging at this time as there is no history of thromboembolic event, but if patient develops recurrent atrial arrhythmia would consider initiation of heparin gtt
-EF slightly improved to 50% by echo 03/27/2025 and stable mild .
-Patient had cardiac catheterization in 2022 which showed no significant coronary artery disease. Does not need ischemic evaluation prior to surgery.
-Outpatient dose of Lasix 40 mg PO daily has been continued and there is no evidence of acute HF.
-Outpatient dose of losartan 50 mg daily has been continued
-Outpatient dose of Toprol-XL 50 mg daily has been continued
HPI:
Nicolette is an 85 year old female with PMH of chronic HFmrEF, NICM, paroxysmal atrial fibrillation/flutter, LBBB, MR, HTN, HLD, BORIS, hypothyroidism, GERD, MSSA discitis s/p spinal fusion with hardware on chronic suppressive abx since well as
left knee MSSA soft tissue abscess with septic bursitis. Patient being admitted for septic bursitis of knee. There has been ongoing outpatient treatment with multiple trials of IV antibiotics and chronic oral antibiotics. Now presenting to
emergency department with worsening left knee pain, inability to bear weight and knee wound with drainage/discharge. Patient also noted chills. Patient found to be febrile with temperature of 100.5 on admission.seen by orthopedics who expressed
copious pus from wound now with concern of prosthetic joint infection with possible fistula to tibia. Orthopedics now planning for removal of prosthetic joint with placement of spacer and antibiotic impregnated cement. Cardiology being asked to
see patient for preoperative risk assessment. Tentative surgery on 03/29/2025.
From cardiac standpoint patient last seen in office in January 2025 and was doing well without complaints. EKG showed sinus rhythm with left bundle branch block which is chronic and no evidence of recurrent atrial fibrillation on dofetilide.
Progress Note - [facility]
Subjective
Date of Service: March 28, 2025
She feels well and expects to have surgery tomorrow
Objective
Labs:
03/28/25 06:19
03/28/25 06:19
Labs
Hgb 11.4 g/dL (12.0-16.0) L 03/28/25 06:19
Hct 34.7 % (37.0-47.0) L 03/28/25 06:19
Plt Count 223 10^3/uL (130-400) D 03/28/25 06:19
Sodium 139 mmol/L (135-145) 03/28/25 06:19
Potassium 4.7 mmol/L (3.5-5.1) D 03/28/25 06:19
BUN 23 mg/dl (7-17) H 03/28/25 06:19
Creatinine 0.9 mg/dL (0.6-1.0) 03/28/25 06:19
Glucose 94 mg/dl (70-99) 03/28/25 06:19
Vital Signs and I&O:
Vital Signs
Temp Pulse Resp BP Pulse Ox
98 F 62 16 113/68 97
03/28/25 11:59 03/28/25 11:59 03/28/25 11:59 03/28/25 11:59 03/28/25 11:59
Vital Signs
Temp Pulse Resp BP Pulse Ox
98 F 62 16 113/68 97
03/28/25 11:59 03/28/25 11:59 03/28/25 11:59 03/28/25 11:59 03/28/25 11:59
Intake & Output
03/26/25 03/27/25 03/28/25 03/29/25
06:59 06:59 06:59 06:59
Intake Total 1480 / 1480 480 / 480 860 / 860
Balance 1480 / 1480 480 / 480 860 / 860
Physical Exam
Physical Exam
GEN: AAOx3
LUNGS: RA. No audible wheeze
CV: SR on tele
[2025-03-28 15:00] VITALS: BP 138/65
--- NOTE | 2025-03-28 16:16 | CM ---
Chart reviewed. Plan for OR tomorrow
Patient will start IV abx tomorrow after surgery. Will need continuous IV abx for 6 weeks
Met w/ patient bedside, aware she'll need IV abx at d/c. Patient stated she is familiar w/ IV abx process as she had it previously and spouse is able to administer w/ no problem. Patient used [facility] previously and would like to use again
PICC tomorrow after surgery
Script provided by ID
PT to see following surgery
Plan: Home w/ IV abx, will watch for PT needs
[2025-03-28 19:46] VITALS: BP 109/54
[2025-03-28 23:19] VITALS: BP 111/56
[2025-03-29] VITALS (14 sets, daily range): BP systolic 100–121; BP diastolic 48–62; BMI 27.6
--- NOTE | 2025-03-29 07:38 | W.PN.UPDATE ---
Update Note
Progress Note Update
Nicolette is resting comfortably in bed this morning. She is scheduled today for a left revision total knee arthroplasty with I&D and placement of articulating spacer. All questions were answered. Surgical consent has been signed. NPO until surgery.
Pain control prn.
[2025-03-29] MEDS: TOPROL XL 50 MG PO (08:53)
[2025-03-29] MEDS: COZAAR 50 MG PO (08:53)
[2025-03-29] MEDS: SYNTHROID 125 MCG PO (08:56)
--- NOTE | 2025-03-29 11:13 | W.PN.CARDCBS ---
Addendum entered and electronically signed by Slim Diamond DO 03/29/25 14:12:
I saw and examined the patient.
The Chemical Processing Equipment Repairer's note was reviewed and I agree with the note.
Comment:
Stable for OR
Eliquis held and resume once ok with surgery
Cont Tikosyn
Remains euvolemic on oral lasix
Original Note:
Today's Communication / Plan
-
For OR today.
Eliquis on hold, resume once safe post-op
Continue Tikosyn 250 mcg Q12H
Continue losartan, Toprol, Lasix.
Impression / Plan
-
PCP: Nannette Louise PA-C
Cook Mess: Dr. Maria Del Rosario Cortes
EP: Dr. Jose Eduardo Cortes
Impression:
Presented 03/24/2025 with left knee pain and instability
Left knee prosthetic joint infection despite courses of antibiotics as outpatient failed (hx 6 weeks cefazolin, then 8 weeks daptomycin, and suppressive therapy): Plan is removal of hardware and placement of spacer
Elevated CRP greater than 270
Chronic HFmrEF
NICM EF 40-45% by echo 2022, stable and improved at 50% by echo 03/27/2025
Paroxysmal atrial fibrillation
s/p PVI and Atach ablation 12/10/20
Intolerant to amiodarone after patient developed blue-garibay hyper pigmentation on amiodarone, medication stopped 01/30/2024
Chronic Tikosyn therapy since 05/2024
Chronic Eliquis OAC
Last dose of Eliquis 03/26/2025 AM
Paroxysmal typical atrial flutter 07/23/22
s/p urgent CV in ER restoring SR with blocked PACs and PVCs 07/23/22
Chronic LBBB
Mitral regurgitation
Aortic sclerosis without stenosis
HTN
Hyperlipidemia
Chronic back pain s/p back surgery at [facility] 10/2022
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
Left knee prepatellar bursitis status post I&D 03/18/2024
BORIS w/ CPAP
GERD
H/o bowel obstruction
Hypothyroidism
Exercise mibi 06/06/19: Completed 6 minutes Josesito protocol for 107% MPHR and abnormal ECG with 1.[address] depression II, III, aVF that did not improve until 2 min into recovery, but there was normal perfusion imaging
Cardiac catheterization 08/22/2022:�Nonobstructive coronary artery disease with only minor luminal irregularity, Normal/near normal LVEDP measuring 15 mmHg
Echo 10/04/20: EF 52%, possible mild abnormal relaxation, mild MR
ECHO 07/23/22:�EF 40 to 45%, mild global hypokinesis, stage I diastolic dysfunction, severely dilated left atrium, moderate to severe central mitral regurgitation, mild to moderate AAS with peak/mean gradients 19/13 mmHg, HERMINIA 1.3 cm�, mild TR, PAP 45
to 50 mmHg
LYNETTE 08/22/2022:�EF 45%, mildly reduced systolic function.� Mild to moderate central MR.
Echo 01/07/23: EF 46%, stage II diastolic dysfunction, mod to sev MR, mild peak/mean 16/10 mmHg, mild to mod TR with PAP 62 mmHg
Echo 11/19/2023: EF 48%, mild cLVH, stage I diastolic dysfunction, mild MR, mild with peak/mean gradients 18/10 mmHg, mild AI
Echo 03/27/2025: EF 50%, no WMA, mild peak/mean 16/9 mmHg, mild aortic insufficiency, mild to moderate MR, trace TR with PAP 35 mmHg
Plan:
-Admitted 03/24/2025 with left knee pain and instability with concern for left knee prosthetic joint infection despite courses of antibiotics as outpatient failed (previously completed 6 weeks cefazolin, then 8 weeks daptomycin, and suppressive
therapy).
-Plan is for removal of prosthetic joint with placement of spacer and antibiotic impregnated cement today, 03/29/2025.
-Known h/o paroxysmal atrial fibrillation/flutter. s/p PVI ablation and atrial tach ablation. Stable on Tikosyn 250 mcg Q12H without recurrence. QTc stable.
-Eliquis on hold in anticipation of surgery. Last dose 03/26 AM. Resume once safe following surgery.
-Echo stable 03/27 with EF 50% and mild as noted above.
-Appears euvolemic. Continue PO lasix 40mg daily.
-BP stable. Continue losartan, toprol.
HPI: Nicolette is an 85 year old female with PMH of chronic HFmrEF, NICM, paroxysmal atrial fibrillation/flutter, LBBB, MR, HTN, HLD, BORIS, hypothyroidism, GERD, MSSA discitis s/p spinal fusion with hardware on chronic suppressive abx since well
as left knee MSSA soft tissue abscess with septic bursitis. Patient being admitted for septic bursitis of knee. There has been ongoing outpatient treatment with multiple trials of IV antibiotics and chronic oral antibiotics. Now presenting to
emergency department with worsening left knee pain, inability to bear weight and knee wound with drainage/discharge. Patient also noted chills. Patient found to be febrile with temperature of 100.5 on admission.seen by orthopedics who expressed
copious pus from wound now with concern of prosthetic joint infection with possible fistula to tibia. Orthopedics now planning for removal of prosthetic joint with placement of spacer and antibiotic impregnated cement. Cardiology being asked to
see patient for preoperative risk assessment. Tentative surgery on 03/29/2025. From cardiac standpoint patient last seen in office in January 2025 and was doing well without complaints. EKG showed sinus rhythm with left bundle branch block which
is chronic and no evidence of recurrent atrial fibrillation on dofetilide.
Progress Note - Cook Mess
Subjective
Date of Service: March 29, 2025
No chest pain.
Objective
Labs:
03/28/25 06:19
03/28/25 06:19
Labs
Hgb 11.4 g/dL (12.0-16.0) L 03/28/25 06:19
Hct 34.7 % (37.0-47.0) L 03/28/25 06:19
Plt Count 223 10^3/uL (130-400) D 03/28/25 06:19
Sodium 139 mmol/L (135-145) 03/28/25 06:19
Potassium 4.7 mmol/L (3.5-5.1) D 03/28/25 06:19
BUN 23 mg/dl (7-17) H 03/28/25 06:19
Creatinine 0.9 mg/dL (0.6-1.0) 03/28/25 06:19
Glucose 94 mg/dl (70-99) 03/28/25 06:19
Vital Signs and I&O:
Vital Signs
Temp Pulse Resp BP Pulse Ox
98.7 F 75 18 113/62 92
03/29/25 07:30 03/29/25 08:53 03/29/25 07:30 03/29/25 08:53 03/29/25 07:30
Vital Signs
Temp Pulse Resp BP Pulse Ox
98.7 F 75 18 113/62 92
03/29/25 07:30 03/29/25 08:53 03/29/25 07:30 03/29/25 08:53 03/29/25 07:30
Intake & Output
03/27/25 03/28/25 03/29/25 03/30/25
06:59 06:59 06:59 06:59
Intake Total 480 / 480 860 / 860 240 / 240
Balance 480 / 480 860 / 860 240 / 240
Physical Exam
Physical Exam
GEN: AAOx3
LUNGS: RA. No audible wheeze
CV: SR on tele
[2025-03-29] MEDS: NEURONTIN PO (13:36)
--- NOTE | 2025-03-29 13:40 | PTCARENOTE ---
Pt received from the PACU via bed. Transport was w/o incident. Pt is AAOx3, HRR, lungs are clear, resp. easy. Pt's left leg Mepilex dressing with noted sanguinous drainage at base(lowest point) of dressing. Multiples sm. skin tear's noted under knee
dressing. Pt left knee with 2+ Edema. Positive pedal pulses to B/l feet. Pt denies pain at this time to left knee. VSS, Pt is afebrile. Pt instructed on plan of care. Pt verbalized understanding of instructions. Call parker is within reach.
[2025-03-29] MEDS: KCL PO (13:43)
[2025-03-29] MEDS: LASIX PO (13:44)
[2025-03-29] MEDS: TIKOSYN PO (13:44)
[2025-03-29] MEDS: LIPITOR PO (13:44)
[2025-03-29] MEDS: PROTONIX PO (13:44)
[2025-03-29] MEDS: KCL 20 MEQ PO (14:17)
[2025-03-29] MEDS: LIPITOR 10 MG PO (14:17)
[2025-03-29] MEDS: LASIX 40 MG PO (14:17)
[2025-03-29] MEDS: INVANZ 60 MG IV (14:18)
--- NOTE | 2025-03-29 14:37 | W.PN.ID1 ---
Date of Service
Date of Service: March 29, 2025
Today's Communication
Start Ertapenem 1 g IV q24 x 6 weeks through 05/11/2025.
Place Picc today.
Infusion sheet submitted to case management associate 03/28 to start process.
Assessment / Plan
# Fever recurred off abx
# Left knee PJI
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
# Elevated CRP >270
- Blood cx's neg to date
- Purulent drainage from sinus tract cx Enterobacter cloacae
- 03/29 s/p I&D, removal of knee implants and placement of permanent knee spacer with antibiotic cement. Per Dr. Hamlin, +necrotic tissue sinus tract to pretibial portion of prosthesis.
multiple OR aerobic and anaerobic cultures.
- After surgery, start Ertapenem 1g IV q24 [address] Picc[address]
- Start Ertapenem 1 g IV q24 x 6 weeks through 05/11/2025.
Follow weekly CMP, CBC/diff, ESR, CRP
- Place Picc today.
- Infusion sheet submitted to case management associate 03/28 to start process.
Conditions present on admission.
Afib on dofetilide
CHF
HTN
HLD
Hypothyroidism
Depression
BORIS
Interstitial cystitis
MSSA (pansensitive) bacteremia 10/01/22 ([facility])
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
MSSA left knee bursitis s/p I+D 03/18/24
Left knee TKR 2015
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
Right knee TKR
Arthroscopy right shoulder.
Tonsillectomy.
Appendectomy.
Chief Complaint
-: Fever and Other (knee infection)
Subjective / Review of Systems
Just returned from surgery.
Vital Signs / Physical Exam
Vital Signs
Vital Signs
Temp Pulse Resp BP Pulse Ox
97.7 F 69 17 112/51 95
03/29/25 13:36 03/29/25 13:36 03/29/25 13:36 03/29/25 13:36 03/29/25 13:36
Physical Exam
Constitutional: No Acute Distress
Pulmonary: Clear
Gastrointestinal: Soft, Non Tender and Non Distended
Extremities: Edema (LLE)
Musculoskeletal: Other (Left knee dressing in place, mild blood distally)
Neurological: AO x 3
Objective Data
Lab Data
Lab Results
03/28/25 06:19
03/28/25 06:19
ESR 78 mm/hour (0-20) H 03/24/25 14:25
Estimated Creat Clear 48 ml/min 03/28/25 06:19
Lactic Acid 1.0 mmol/L (0.7-2.0) 03/24/25 12:22
Total Bilirubin 0.7 mg/dl (0.2-1.3) 03/24/25 12:22
AST 23 U/L (14-36) 03/24/25 12:22
ALT 15 U/L (0-35) 03/24/25 12:22
Alkaline Phosphatase 55 U/L (38-126) 03/24/25 12:22
C-Reactive Protein > 270.00 mg/L (0.0-10.00) H 03/24/25 14:25
Most recent labs reviewed.
Micro Results:
03/24/25 14:25 Blood Culture - Preliminary
Blood/Venous No Growth in 4 days- Final report to follow
03/24/25 14:25 Blood Culture - Preliminary
Blood/Venous No Growth in 4 days- Final report to follow
03/24/25 14:25 Wound Culture - Final
Knee - Left Enterobacter cloacae
Gram Stain - Final
03/24/25 20:21 MRSA Screen - Final
Nose No Methicillin Resistant Staphylococcus aureus isolated.
03/24/25 Left knee XRAY: Intact total left knee arthroplasty hardware. No overt complications identified radiographically. No acute fractures or dislocation. Small to moderate suprapatellar joint effusion. Soft tissues otherwise grossly unremarkable.
Care Review
Plan reviewed with: Physician (Dr. Hamlin)
--- NOTE | 2025-03-29 15:10 | W.PN.HOSP.TC ---
Today's Communication/Plan
-
PICC line requested
Started on IV ertapenem
Continue the pain regimen
Continue the PT OT
DC planning
Assessment / Plan
Assessment / Plan
Left knee PJI
Ongoing low-grade fevers with sweats. Enterobacter cloacae from the wound culture.
Antibiotics currently on hold for higher yield in the OR. Blood pressure stable. Nontoxic looking. ID following
s/p Left revision total knee arthroplasty with I&D and placement of articulating spacer today
Now started on ertapenem IV by ID. PICC line requested.
PAFib, now in SR
On eliquis
And Ortho is recommending half dose Eliquis for 3 4 days and then resume therapeutic dose anticoagulation for A-fib
Continue dofetilide and BB
Hypothyroid
Continue levothyroxine
HLD
Conitnue statin
Gerd
conitnue ppi
CKD Stage IIIa
Monitor uop
avoid nephrotoxins andn hypotension
HFrEF, nyha class II
Compensated
Continue BB and lasix
Discussed with Ortho
Anticipated Discharge: > 48 hours
Subjective/Interval History
-
Date of Service: March 29, 2025
Status post left knee surgery this morning
Currently having her dinner room without any issues. Denies any fever or chills.
Denies any chest pain or shortness of breath. No nausea vomiting.
Objective Data
-
Vital Signs:
Vital Signs
Temp Pulse Resp BP Pulse Ox
98.6 F 70 17 110/54 95
03/29/25 14:35 03/29/25 14:35 03/29/25 14:35 03/29/25 14:35 03/29/25 14:35
I&O
03/28/25 03/29/25 03/30/25
06:59 06:59 06:59
Intake Total 860 / 860 240 / 240 100 / 100
Balance 860 / 860 240 / 240 100 / 100
Physical Exam
-
General: No Apparent Distress
Respiratory: Clear to Auscultation and Non Labored Respirations; Negative Accessory Resp Muscle Use
Cardiac: Regular Rhythm and S1/S2; Negative Tachycardic
GI: Soft
Neuro: AO x 3
Psych: Calm; Negative Confused
--- NOTE | 2025-03-29 15:15 | CM ---
Pt for OR today.
Spoke with Tori Hernandez IV antibiotic script and all clinical faxed to Tori in anticipation for dc later this week.
Spoke with Luz at [facility] referral placed in care port.
Antibiotics are given every 24 hours.
Pt can receive antibiotic day of surgery and SOC can be next day.
Pt has hx of IV antibiotic infusion.
Will need PICC line and CXR faxed to Brianda and Mercedes hernandez after placement.
PLAN Home with Mercedes hernandez and Brianda MONTALVO
[2025-03-29] MEDS: TYLENOL 650 MG PO ×2 (17:44→20:19)
[2025-03-29] MEDS: ANCEF 5 IV (17:44)
[2025-03-29] MEDS: NEURONTIN 100 MG PO ×2 (17:49→21:19)
[2025-03-29] MEDS: ELIQUIS 2.5 MG PO (20:18)
[2025-03-29] MEDS: BACTROBAN 2% OINTMENT 1 APPLIC NASAL (20:18)
[2025-03-29] MEDS: PROTONIX 40 MG PO (20:19)
[2025-03-29] MEDS: SENOKOT 17.2 MG PO (20:19)
[2025-03-29] MEDS: TIKOSYN 250 MCG PO (20:20)
[2025-03-29] MEDS: COLACE 100 MG PO (21:19)
[2025-03-30] VITALS (8 sets, daily range): BP systolic 102–146; BP diastolic 44–69; PULSE 73–74; O2SAT 97–98; BMI 28.1
[2025-03-30] MEDS: TYLENOL PO ×3 (00:03→23:40)
[2025-03-30] MEDS: ANCEF 5 IV (00:54)
[2025-03-30] MEDS: SYNTHROID 125 MCG PO (05:59)
--- NOTE | 2025-03-30 07:58 | W.PN.CARDCBS ---
Today's Communication / Plan
-
Overall doing well
Remains in sinus. Cont Tikosyn.
Cont Eliquis 2.5mg po bid x3 days then increase to 5mg po bid
Cont Toprol/Losartan/Lasix
will follow peripherally
Impression / Plan
-
PCP: Nannette Louise PA-C
Mule Driver: Dr. Maria Del Rosario Cortes
EP: Dr. Jose Eduardo Cortes
Impression:
Presented 03/24/2025 with left knee pain and instability
Left knee prosthetic joint infection despite courses of antibiotics as outpatient failed (hx 6 weeks cefazolin, then 8 weeks daptomycin, and suppressive therapy): s/p spacer 03/29
Elevated CRP greater than 270
Chronic HFmrEF
NICM EF 40-45% by echo 2022, stable and improved at 50% by echo 03/27/2025
Paroxysmal atrial fibrillation
s/p PVI and Atach ablation 12/10/20
Intolerant to amiodarone after patient developed blue-garibay hyper pigmentation on amiodarone, medication stopped 01/30/2024
Chronic Tikosyn therapy since 05/2024
Chronic Eliquis OAC
Last dose of Eliquis 03/26/2025 AM
Paroxysmal typical atrial flutter 07/23/22
s/p urgent CV in ER restoring SR with blocked PACs and PVCs 07/23/22
Chronic LBBB
Mitral regurgitation
Aortic sclerosis without stenosis
HTN
Hyperlipidemia
Chronic back pain s/p back surgery at [facility] 10/2022
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
Left knee prepatellar bursitis status post I&D 03/18/2024
BORIS w/ CPAP
GERD
H/o bowel obstruction
Hypothyroidism
Exercise mibi 06/06/19: Completed 6 minutes Josesito protocol for 107% MPHR and abnormal ECG with 1.[address] depression II, III, aVF that did not improve until 2 min into recovery, but there was normal perfusion imaging
Cardiac catheterization 08/22/2022:�Nonobstructive coronary artery disease with only minor luminal irregularity, Normal/near normal LVEDP measuring 15 mmHg
Echo 10/04/20: EF 52%, possible mild abnormal relaxation, mild MR
ECHO 07/23/22:�EF 40 to 45%, mild global hypokinesis, stage I diastolic dysfunction, severely dilated left atrium, moderate to severe central mitral regurgitation, mild to moderate AAS with peak/mean gradients 19/13 mmHg, HERMINIA 1.3 cm�, mild TR, PAP 45
to 50 mmHg
LYNETTE 08/22/2022:�EF 45%, mildly reduced systolic function.� Mild to moderate central MR.
Echo 01/07/23: EF 46%, stage II diastolic dysfunction, mod to sev MR, mild peak/mean 16/10 mmHg, mild to mod TR with PAP 62 mmHg
Echo 11/19/2023: EF 48%, mild cLVH, stage I diastolic dysfunction, mild MR, mild with peak/mean gradients 18/10 mmHg, mild AI
Echo 03/27/2025: EF 50%, no WMA, mild peak/mean 16/9 mmHg, mild aortic insufficiency, mild to moderate MR, trace TR with PAP 35 mmHg
Plan:
-Admitted 03/24/2025 with left knee pain and instability with concern for left knee prosthetic joint infection despite courses of antibiotics as outpatient failed (previously completed 6 weeks cefazolin, then 8 weeks daptomycin, and suppressive
therapy).
-s/p removal of prosthetic joint with placement of spacer and antibiotic impregnated cement today, 03/29/2025.
-Known h/o paroxysmal atrial fibrillation/flutter. s/p PVI ablation and atrial tach ablation. Stable on Tikosyn 250 mcg Q12H without recurrence. QTc stable.
- tele with one brief episode of Atach
-Continue Eliquis 2.5mg po bid for 3 days then increase to 5mg po bid
-Echo stable 03/27 with EF 50% and mild as noted above.
-Appears euvolemic. Continue PO lasix 40mg daily.
-BP stable. Continue losartan, toprol.
HPI: Nicolette is an 85 year old female with PMH of chronic HFmrEF, NICM, paroxysmal atrial fibrillation/flutter, LBBB, MR, HTN, HLD, BORIS, hypothyroidism, GERD, MSSA discitis s/p spinal fusion with hardware on chronic suppressive abx since well
as left knee MSSA soft tissue abscess with septic bursitis. Patient being admitted for septic bursitis of knee. There has been ongoing outpatient treatment with multiple trials of IV antibiotics and chronic oral antibiotics. Now presenting to
emergency department with worsening left knee pain, inability to bear weight and knee wound with drainage/discharge. Patient also noted chills. Patient found to be febrile with temperature of 100.5 on admission.seen by orthopedics who expressed
copious pus from wound now with concern of prosthetic joint infection with possible fistula to tibia. Orthopedics now planning for removal of prosthetic joint with placement of spacer and antibiotic impregnated cement. Cardiology being asked to
see patient for preoperative risk assessment. Tentative surgery on 03/29/2025. From cardiac standpoint patient last seen in office in January 2025 and was doing well without complaints. EKG showed sinus rhythm with left bundle branch block which
is chronic and no evidence of recurrent atrial fibrillation on dofetilide.
Progress Note - Mule Driver
Subjective
Date of Service: March 30, 2025
overall feels well. NO palpitations and stable joint pain.
Objective
Labs:
03/28/25 06:19
03/28/25 06:19
Labs
Hgb 11.4 g/dL (12.0-16.0) L 03/28/25 06:19
Hct 34.7 % (37.0-47.0) L 03/28/25 06:19
Plt Count 223 10^3/uL (130-400) D 03/28/25 06:19
Sodium 139 mmol/L (135-145) 03/28/25 06:19
Potassium 4.7 mmol/L (3.5-5.1) D 03/28/25 06:19
BUN 23 mg/dl (7-17) H 03/28/25 06:19
Creatinine 0.9 mg/dL (0.6-1.0) 03/28/25 06:19
Glucose 94 mg/dl (70-99) 03/28/25 06:19
Vital Signs and I&O:
Vital Signs
Temp Pulse Resp BP Pulse Ox
98.5 F 80 16 146/69 95
03/30/25 03:00 03/30/25 03:00 03/30/25 03:00 03/30/25 03:00 03/30/25 03:00
Vital Signs
Temp Pulse Resp BP Pulse Ox
98.5 F 80 16 146/69 95
03/30/25 03:00 03/30/25 03:00 03/30/25 03:00 03/30/25 03:00 03/30/25 03:00
Intake & Output
03/28/25 03/29/25 03/30/25 03/31/25
06:59 06:59 06:59 06:59
Intake Total 860 / 860 240 / 240 580 / 580
Balance 860 / 860 240 / 240 580 / 580
Physical Exam
Physical Exam
GEN: No distress, awake, Ox3
HEENT: supple, anicteric, mmm
LUNGS: CTA, no wheezes/rales
CV: Reg, S1/S2, 1/6 syst LSB, no gallop
ABD: soft, BS+, NT/ND
EXT: dressing intact
NEURO: Gross non-focal
SKIN: No rash
[2025-03-30] MEDS: BACTROBAN 2% OINTMENT 1 APPLIC NASAL ×2 (08:45→20:38)
[2025-03-30] MEDS: COLACE 100 MG PO ×2 (08:47→20:38)
[2025-03-30] MEDS: COZAAR 50 MG PO (08:47)
[2025-03-30] MEDS: KCL 20 MEQ PO (08:47)
[2025-03-30] MEDS: ELIQUIS 2.5 MG PO ×2 (08:47→20:40)
[2025-03-30] MEDS: LASIX 40 MG PO (08:48)
[2025-03-30] MEDS: TIKOSYN 250 MCG PO ×2 (08:49→20:39)
[2025-03-30] MEDS: NEURONTIN 100 MG PO ×3 (08:49→22:18)
[2025-03-30] MEDS: LIPITOR 10 MG PO (08:49)
[2025-03-30] MEDS: PROTONIX 40 MG PO ×2 (08:49→20:39)
[2025-03-30] MEDS: TOPROL XL 50 MG PO (08:49)
[2025-03-30] MEDS: TYLENOL 650 MG PO ×4 (08:49→20:38)
[2025-03-30] MEDS: SENOKOT 17.2 MG PO ×2 (08:49→20:39)
--- NOTE | 2025-03-30 10:23 | W.PN.ID1 ---
Date of Service
Date of Service: March 30, 2025
Today's Communication
Continue Ertapenem.
Dr. Hamlin will search for missing OR cx's.
Assessment / Plan
# Fever resolved
# Left knee PJI
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
# Elevated CRP >270
- Blood cx's neg to date
- Purulent drainage from sinus tract cx Enterobacter cloacae
- 03/29 s/p I&D, removal of knee implants and placement of permanent knee spacer with antibiotic cement. Per Dr. Hamlin, +necrotic tissue sinus tract to pretibial portion of prosthesis.
Multiple OR cultures obtained, but micro lab did not receive specimen. Dr. Hamlin will investigate.
- Continue Ertapenem 1 g IV q24 x 6 weeks through 05/11/2025.
Follow weekly CMP, CBC/diff, ESR, CRP
- Picc in place.
- Infusion sheet submitted to case management specialist 03/28.
- Anticipate dc home Thursday, per Ortho.
Conditions present on admission.
Afib on dofetilide
CHF
HTN
HLD
Hypothyroidism
Depression
BORIS
Interstitial cystitis
MSSA (pansensitive) bacteremia 10/01/22 ([facility])
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
MSSA left knee bursitis s/p I+D 03/18/24
Left knee TKR 2015
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
Right knee TKR
Arthroscopy right shoulder.
Tonsillectomy.
Appendectomy.
Chief Complaint
-: Other (knee infection)
Subjective / Review of Systems
+ post-op left knee pain
Vital Signs / Physical Exam
Vital Signs
Vital Signs
Temp Pulse Resp BP Pulse Ox
97.7 F 68 16 131/55 95
03/30/25 07:10 03/30/25 07:10 03/30/25 07:10 03/30/25 07:10 03/30/25 07:10
Physical Exam
Constitutional: No Acute Distress
Pulmonary: Clear
Gastrointestinal: Soft, Non Tender and Non Distended
Extremities: Edema (LLE)
Musculoskeletal: Other (Left knee dressing in place, mild blood distally)
Wound: Other (Left knee dressing blood strike trough)
Neurological: AO x 3
Lines: PICC (RUE intact)
Objective Data
Lab Data
Lab Results
03/28/25 06:19
03/28/25 06:19
ESR 78 mm/hour (0-20) H 03/24/25 14:25
Estimated Creat Clear 48 ml/min 03/28/25 06:19
Lactic Acid 1.0 mmol/L (0.7-2.0) 03/24/25 12:22
Total Bilirubin 0.7 mg/dl (0.2-1.3) 03/24/25 12:22
AST 23 U/L (14-36) 03/24/25 12:22
ALT 15 U/L (0-35) 03/24/25 12:22
Alkaline Phosphatase 55 U/L (38-126) 03/24/25 12:22
C-Reactive Protein > 270.00 mg/L (0.0-10.00) H 03/24/25 14:25
Most recent labs reviewed.
Micro Results:
03/24/25 14:25 Blood Culture - Final
Blood/Venous No Growth - Final Report
03/24/25 14:25 Blood Culture - Final
Blood/Venous No Growth - Final Report
03/24/25 14:25 Wound Culture - Final
Knee - Left Enterobacter cloacae
Gram Stain - Final
03/24/25 20:21 MRSA Screen - Final
Nose No Methicillin Resistant Staphylococcus aureus isolated.
03/24/25 Left knee XRAY: Intact total left knee arthroplasty hardware. No overt complications identified radiographically. No acute fractures or dislocation. Small to moderate suprapatellar joint effusion. Soft tissues otherwise grossly unremarkable.
Care Review
Plan reviewed with: Physician (Drs. Ren and Yakelin)
--- NOTE | 2025-03-30 11:23 | W.PN.HOSP.TC ---
Today's Communication/Plan
-
Continue with current treatments
Continue with PT
Assessment / Plan
Assessment / Plan
Left knee PJI
Ongoing low-grade fevers with sweats. Enterobacter cloacae from the wound culture.
Antibiotics currently on hold for higher yield in the OR. Blood pressure stable. Nontoxic looking. ID following
s/p Left revision total knee arthroplasty with I&D and placement of articulating spacer 03/29
Now started on ertapenem IV by ID.
PAFib, now in SR
On eliquis
And Ortho is recommending half dose Eliquis for 3 days and then resume therapeutic dose anticoagulation for A-fib
Continue dofetilide and BB
Hypothyroid
Continue levothyroxine
HLD
Conitnue statin
Gerd
conitnue ppi
CKD Stage IIIa
Monitor uop
avoid nephrotoxins andn hypotension
HFrEF, nyha class II
Compensated
Continue BB and lasix
Anticipated Discharge: > 48 hours
Subjective/Interval History
-
Date of Service: March 30, 2025
No overnight events.
Pain is under control. Working with therapy.
No nausea or vomiting.
No shortness of breath, chest pain or dizziness
Objective Data
-
Vital Signs:
Vital Signs
Temp Pulse Resp BP Pulse Ox
97.7 F 68 16 131/55 95
03/30/25 07:10 03/30/25 07:10 03/30/25 07:10 03/30/25 07:10 03/30/25 07:10
I&O
03/29/25 03/30/25 03/31/25
06:59 06:59 06:59
Intake Total 240 / 240 580 / 580
Balance 240 / 240 580 / 580
Physical Exam
-
General: No Apparent Distress
HEENT: Moist Mucous Membranes
Respiratory: Clear to Auscultation and Non Labored Respirations; Negative Accessory Resp Muscle Use
Cardiac: Regular Rhythm and S1/S2; Negative Tachycardic
Neuro: AO x 3
Psych: Calm
Data Reviewed
-
Labs: Labs Reviewed by me
--- NOTE | 2025-03-30 11:49 | W.PN.UPDATE ---
Update Note
Progress Note Update
Spoke to Dr. Hamlin. OR tissues unfortunately sent to Pathology instead of Micro. Specimens already in formalin, and thus unable to culture.
[2025-03-30] MEDS: INVANZ 60 MG IV (14:25)
[2025-03-31 03:00] VITALS: BP 128/54
[2025-03-31] MEDS: TYLENOL PO ×2 (03:45→08:33)
[2025-03-31] MEDS: SYNTHROID 125 MCG PO (05:59)
[2025-03-31 06:00] VITALS: BMI 28.0
[2025-03-31] MEDS: TYLENOL 650 MG PO ×2 (06:02→12:45)
[2025-03-31 07:00] VITALS: BP 117/52
--- NOTE | 2025-03-31 07:22 | W.PN.ORTHO ---
Documented by User: Atiya León PA-C 03/31/25 07:26
Today's Communication / Plan
-
85 yo F POD2 revision left TKA with I&D and placement of articulating spacer under the direction of Dr. Hamlin
--WBAT to LLE with walker. We appreciate the assistance of PT/OT while patient admitted.
--Resume Eliquis. Half dose for 3-4 days, then resume usual dose.
--Dressing changed this morning and foam dressing placed over skin tear. Maintain surgical dressing until 7-10 days post-op. Staple removal at 2 weeks post-op.
--PICC line has been placed. Continue abx per ID, currently ertapenem.
--Case management for dc planning.
Assessment
.
Distal Motor Intact: Yes
Dressing:
Clean, dry and intact.
Plan
.
Surgery / Date: Left revision TKA, [place], 03/29
DVT Prophylaxis: Other (Eliquis)
Activity:
Out of bed.
PT/OT
Subjective
.
.:
Ms. Capps is POD2 following her left revision total knee arthroplasty with I&D and articulating spacer performed by Dr. Hamlin. She is resting comfortably in bed this morning. She reports her symptoms are well controlled at present. She is eager to
be discharged home.
Vital Signs and Labs
.
Vital Signs and Labs:
Lab Results
03/28/25 06:19
03/28/25 06:19
Temp Pulse Resp BP Pulse Ox
98.9 F 71 18 128/54 96
03/31/25 03:00 03/31/25 03:00 03/31/25 03:00 03/31/25 03:00 03/31/25 03:47
Non-invasive Hgb result: 10.0
Physical Exam
-
Directed exam of the left lower extremity reveals surgical dressing saturated with blood distally. This was removed to reveal surgical incision well approximated with belkis. No active drainage or bleeding at present. Skin tear superomedial to the
proximal aspect of the incision. Expected post-operative edema and ecchymosis throughout the left lower extremity. Calf soft and nontender. Neurovascularly intact distally.

Documented by User: Erich Hamlin MD 03/31/25 10:01
Plan
.
Discharge Information:
Appreciate Medical Team assistance with care. IV antibiotics per ID recommendation. Will require chronic suppressive oral antibiotics as well.
Subjective
.
.:
Ms. Castillo is POD2 following her left revision total knee arthroplasty with I&D and articulating spacer performed by Dr. Hamlin. She is resting comfortably in bed this morning. She reports her symptoms are well controlled at present. She is eager to
be discharged home.
.
Events discussed with patient regarding tissue cultures from surgery. Tissue cultures designated for microbiology sent by OR nursing to pathology and processed in formalin and unable to be cultured.
[2025-03-31 08:15] VITALS: BP 117/52
[2025-03-31] MEDS: NEURONTIN 100 MG PO (08:30)
[2025-03-31] MEDS: LIPITOR 10 MG PO (08:30)
[2025-03-31] MEDS: TOPROL XL 50 MG PO (08:30)
[2025-03-31] MEDS: TIKOSYN 250 MCG PO (08:30)
[2025-03-31] MEDS: KCL 20 MEQ PO (08:30)
[2025-03-31] MEDS: COLACE 100 MG PO (08:31)
[2025-03-31] MEDS: LASIX 40 MG PO (08:31)
[2025-03-31] MEDS: SENOKOT 17.2 MG PO (08:31)
[2025-03-31] MEDS: COZAAR 50 MG PO (08:31)
[2025-03-31] MEDS: PROTONIX 40 MG PO (08:32)
[2025-03-31] MEDS: ELIQUIS 2.5 MG PO (08:32)
--- NOTE | 2025-03-31 09:21 | W.PN.HOSP.TC ---
Today's Communication/Plan
-
DC home once IV antibiotics are arranged at home
Assessment / Plan
Assessment / Plan
Left knee PJI
Enterobacter cloacae from the wound culture. No further fever chills.
s/p Left revision total knee arthroplasty with I&D and placement of articulating spacer 03/29
Now started on ertapenem IV by ID.
PAFib, now in SR
On eliquis
And Ortho is recommending half dose Eliquis for 1 day and then resume therapeutic dose anticoagulation for A-fib
Continue dofetilide and BB
Hypothyroid
Continue levothyroxine
HLD
Conitnue statin
Gerd
conitnue ppi
CKD Stage IIIa
Monitor uop
avoid nephrotoxins andn hypotension
HFrEF, nyha class II
Compensated
Continue BB and lasix
Medically stable for discharge home once IV antibiotics are arranged
Anticipated Discharge: Today
Subjective/Interval History
-
Date of Service: March 31, 2025
Pain from the left knee under control. Not using much of pain medication.
Denies any fever or chills.
Did okay with PT and home health suggested. She is keen to go home.
No nausea vomiting or diarrhea.
No chest pain or shortness of breath or dizziness.
Objective Data
-
Vital Signs:
Vital Signs
Temp Pulse Resp BP Pulse Ox
98.7 F 74 18 117/52 94
03/31/25 07:00 03/31/25 08:31 03/31/25 07:00 03/31/25 08:31 03/31/25 07:00
I&O
03/30/25 03/31/25 04/01/25
06:59 06:59 06:59
Intake Total 580 / 580 840 / 840
Balance 580 / 580 840 / 840
Physical Exam
-
General: Comfortable
Respiratory: Non Labored Respirations; Negative Accessory Resp Muscle Use
Cardiac: Regular Rhythm and S1/S2; Negative Tachycardic
GI: Soft
Musculoskeletal: Other (Swollen left knee from surgery. Dressing changed today by orthopedics.)
Neuro: AO x 3
Psych: Calm
[2025-03-31 11:03] VITALS: BP 102/51
--- NOTE | 2025-03-31 11:27 | CM ---
CM following re: discharge planning.
Reviewed pt's chart, met with pt.
According to pt is medically stable to be discharged today. Pt is aware, expressed her agreement and she stated her will transport home.
IMM reviewed, placed on chart, pt has a copy.
A referral to [facility] and [facility] noted. Pt will need continue Ertapenem 1 g IV q24 x 6 weeks through 05/11/2025.
CM spoke to [facility] liaison, requested PICC line information with Chest X-Ray faxed to [facility] and liaison confirmed that medications will be delivered to pt's home tomorrow and they with [facility] will start home infusion therapy
tomorrow.
Please fax discharge instruction to [facility] [phone] and [facility] [phone]
D/C plan: home with [facility] and [facility]. to transport.
--- NOTE | 2025-03-31 12:42 | W.PN.ID1 ---
Date of Service
Date of Service: March 31, 2025
Today's Communication
Continue antibiotics.
Assessment / Plan
# Fever; resolved
# Left knee PJI
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
# Elevated CRP >270
- Blood cx's neg to date
- Purulent drainage from sinus tract. Cx: Enterobacter cloacae
- 03/29 s/p I&D, removal of knee implants and placement of permanent knee spacer with antibiotic cement. Per Dr. Hamlin: (+)necrotic tissue sinus tract to pretibial portion of prosthesis.
Multiple OR cultures obtained, but micro lab did not receive specimen. Dr. Hamlin will investigate.
--> Continue Ertapenem 1 g IV q24 x 6 weeks through 05/11/2025.
Follow weekly CMP, CBC/diff, ESR, CRP
- Picc in place.
- Infusion sheet submitted to medical case manager 03/28.
- Anticipate dc home Thursday, per Ortho.
Conditions present on admission.
Afib on dofetilide
CHF
HTN
HLD
Hypothyroidism
Depression
BORIS
Interstitial cystitis
MSSA (pansensitive) bacteremia 10/01/22 ([facility] [address])
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
MSSA left knee bursitis s/p I+D 03/18/24
Left knee TKR 2015
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
Right knee TKR
Arthroscopy right shoulder.
Tonsillectomy.
Appendectomy.
Chief Complaint
-: Other (knee infection)
Subjective / Review of Systems
Review of Systems: No Fever and No Chills
Vital Signs / Physical Exam
Vital Signs
Vital Signs
Temp Pulse Resp BP Pulse Ox
98.7 F 78 18 102/51 96
03/31/25 11:03 03/31/25 11:03 03/31/25 11:03 03/31/25 11:03 03/31/25 11:03
Physical Exam
Constitutional: No Acute Distress
Pulmonary: Clear
Gastrointestinal: Soft, Non Tender and Non Distended
Extremities: Edema (LLE)
Musculoskeletal: Other (Left knee dressing in place, mild blood distally)
Wound: Other (Left knee dressing blood strike trough)
Neurological: AO x 3
Lines: PICC (RUE intact)
Objective Data
Lab Data
Lab Results
03/28/25 06:19
03/28/25 06:19
ESR 78 mm/hour (0-20) H 03/24/25 14:25
Estimated Creat Clear 48 ml/min 03/28/25 06:19
Lactic Acid 1.0 mmol/L (0.7-2.0) 03/24/25 12:22
Total Bilirubin 0.7 mg/dl (0.2-1.3) 03/24/25 12:22
AST 23 U/L (14-36) 03/24/25 12:22
ALT 15 U/L (0-35) 03/24/25 12:22
Alkaline Phosphatase 55 U/L (38-126) 03/24/25 12:22
C-Reactive Protein > 270.00 mg/L (0.0-10.00) H 03/24/25 14:25
Most recent labs reviewed.
Micro Results:
03/24/25 14:25 Blood Culture - Final
Blood/Venous No Growth - Final Report
03/24/25 14: Blood Culture - Final
Blood/Venous No Growth - Final Report
03/24/25 14:25 Wound Culture - Final
Knee - Left Enterobacter cloacae
Gram Stain - Final
03/24/25 20:21 MRSA Screen - Final
Nose No Methicillin Resistant Staphylococcus aureus isolated.
Imaging:
03/24/25 Left knee XRAY: Intact total left knee arthroplasty hardware. No overt complications identified radiographically. No acute fractures or dislocation. Small to moderate suprapatellar joint effusion. Soft tissues otherwise grossly unremarkable.
--- NOTE | 2025-03-31 14:07 | W.DCSUMMARY ---
Discharge Summary
Discharge Data
Date of Admission: 03/24/25
Date of Discharge: 03/31/25
-
Pending Results: No
Hospital Course
Primary diagnosis:
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 Hamlin
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
Secondary diagnosis:
Chronic heart failure with midrange EF in 2023. Improved EF on echo 03/27/25 to 50%
Paroxysmal atrial fibrillation
Essential hypertension
Hyperlipidemia
Obstructive sleep apnea
history of MSSA discitis s/p spinal fusion with hardware on chronic suppressive abx since 2022
Hospital course:
Patient with a history of persistent complicated left knee septic bursitis, suspected sinus tract underlying prosthetic joint in the left knee came in with left knee pain on the left knee wound draining again. She had fevers and chills. CRP was
more than 270. She has longstanding issue with left knee. Orthopedics feels that maybe. Correction to the tibia. They could not aspirate much joint fluid. After discussion with the family orthopedics went on to do a revision of left TKA with
incision and drainage and placement of articulating spacer. Was seen by ID who recommended IV ertapenem home antibiotic infusion.
Today she was doing well from pain standpoint after revision TKA. She had no fever or chills. She was ambulating okay with the therapist who recommended home health. PICC line was obtained and she was discharged home on home antibiotics.
Consultants on board:
Orthopedics-Erich Alvarez
Infectious disease-Sushila Lopez
Cardiology-Dr. Lico Jo
Discharge Plan
-
Patient Disposition: Home with Home Care
Discharge Diagnosis/Procedures: Left Knee PJI S/P revision left TKA with I&D and placement of articulating spacer
Condition: Good
Diet: Low Cholesterol
Activity: As tolerated
Driving Restrictions: Not until seen by your Dr
Bathing Restrictions: None
Other Services: [facility]
Wound Care: Dressing changed this morning and foam dressing placed over skin tear. Maintain surgical dressing until 7-10 days post-op. Staple removal at 2 weeks post-op
Referrals:
UNKNOWN - PT DOES,NOT KNOW [Family Provider] - in less than 1 week
Referral Note: Follow with your PCP
Sushila Bueno MD [Active, Infectious Diseases] - in three to four weeks
Additional Discharge Medication Instructions: Take half a tablet of eliquis 03/31 and 04/01 and then regular strength starting 04/02
Prescriptions:
New
docusate sodium 100 mg Capsule
100 mg PO BID Qty: 60 0RF
oxycodone 5 mg Tablet
2.5 mg PO Q4HPRN PRN (Reason: mild pain) Qty: 20 0RF
Ertapenem [Invanz] 1000 MG
0.9% Sodium Chloride [Nss] 50 ML
120 mls/hr IV Q24H
Ordered By: Richard Ren MD
Last Taken: 03/30/25 14:25 60 mls
polyethylene glycol 3350 [ClearLax] 17 gram powder in packet
17 g PO DAILY PRN (Reason: Constipation) Qty: 14 0RF
Continued
levothyroxine 125 MCG tablet
125 mcg PO DAILY
cholecalciferol (vitamin D3) 2,000 UNIT tablet
2,000 unit PO Q48H
atorvastatin [Lipitor] 10 mg Tablet
10 mg PO DAILY
omeprazole 20 mg Tablet,Delayed Release (Dr/Ec)
20 mg PO BID
potassium chloride 10 mEq Tablet Extended Release
20 meq PO DAILY
cyanocobalamin (vitamin B-12) 500 mcg Tablet
500 mcg PO DAILY
gabapentin 100 mg Capsule
100 mg PO TID
furosemide 40 mg Tablet
40 mg PO DAILY
albuterol sulfate 90 mcg/actuation Hfa Aerosol Inhaler
2 puff INHALATION R Q6HPRN PRN (Reason: sob)
losartan 50 mg Tablet
50 mg PO DAILY
Nutraful
1 cap PO BID
metoprolol succinate 50 mg tablet extended release 24 hr
50 mg PO DAILY
dofetilide 250 mcg capsule
250 mcg PO Q12H
Eliquis 5 MG tablet
5 mg PO BID Qty: 0 0RF
Rx Instructions:
Take half a tablet of eliquis 03/31 and 04/01 and then regular strength starting 04/02
Changed
acetaminophen 500 mg tablet
1,000 mg PO TID PRN (Reason: Pain) Qty: 0 0RF
Discontinued
Aranesp (in polysorbate) 200 mcg/0.4 mL Syringe
200 mcg SC DAILYPRN PRN (Reason: Hgb<11)
cefuroxime axetil 500 mg Tablet
500 mg PO BID
Discharge Orders:
Discharge Patient (As Directed); Ordered 03/31/25
Ordered By: Richard Ren
Discharge Date and Time
Print Language: [id number]
[2025-03-31] MEDS: INVANZ 60 MG IV (14:09)
[2025-03-31 14:22] VITALS: BP 114/53
== END 2025-03-31 15:38 | disposition home health service (06) | DRG 467 ==
LOC: 2 SOUTH 17:05
PROVIDERS: Nurse Practitioner Family; Nurse Practitioner Gerontology; Physician Assistant; Student in an Organized Health Care Education/Training Program; ADMITTING PHYSICIAN Internal Medicine; ATTENDING PHYSICIAN Internal Medicine; CONSULT PHYSICIAN Internal Medicine Cardiovascular Disease; CONSULT PHYSICIAN Internal Medicine Infectious Disease; CONSULT PHYSICIAN Orthopaedic Surgery; EMERGENCY PHYSICIAN Emergency Medicine
PROC: 0SRD0J9 Replacement of Left Knee Joint with Synthetic Substitute, Cemented, Open Approach (ICD-10-PCS; 2025-03-29)
PROC: 0SPD0JZ Removal of Synthetic Substitute from Left Knee Joint, Open Approach (ICD-10-PCS; 2025-03-29)
DX: T84.54XA Infection and inflammatory reaction due to internal left knee prosthesis, initial encounter (principal); I13.0 Hypertensive heart and chronic kidney disease with heart failure and stage 1 through stage 4 chronic kidney disease, or unspecified chronic kidney disease; I50.22 Chronic systolic (congestive) heart failure; I42.8 Other cardiomyopathies; I48.3 Typical atrial flutter; Y83.1 Surgical operation with implant of artificial internal device as the cause of abnormal reaction of the patient, or of later complication, without mention of misadventure at the time of the procedure; M25.362 Other instability, left knee; N18.31 Chronic kidney disease, stage 3a; I48.0 Paroxysmal atrial fibrillation; G47.33 Obstructive sleep apnea (adult) (pediatric); Z86.19 Personal history of other infectious and parasitic diseases; Z98.1 Arthrodesis status; E03.9 Hypothyroidism, unspecified; K21.9 Gastro-esophageal reflux disease without esophagitis; Z80.7 Family history of other malignant neoplasms of lymphoid, hematopoietic and related tissues; Z80.3 Family history of malignant neoplasm of breast; Z87.891 Personal history of nicotine dependence; Z88.1 Allergy status to other antibiotic agents; Z79.899 Other long term (current) drug therapy; Z79.890 Hormone replacement therapy; Z90.710 Acquired absence of both cervix and uterus; Z96.651 Presence of right artificial knee joint; Z79.01 Long term (current) use of anticoagulants; I44.7 Left bundle-branch block, unspecified; I70.0 Atherosclerosis of aorta; G89.29 Other chronic pain; A49.01 Methicillin susceptible Staphylococcus aureus infection, unspecified site; E11.22 Type 2 diabetes mellitus with diabetic chronic kidney disease; E78.00 Pure hypercholesterolemia, unspecified; F32.A Depression, unspecified; I25.10 Atherosclerotic heart disease of native coronary artery without angina pectoris; N30.10 Interstitial cystitis (chronic) without hematuria; Z79.2 Long term (current) use of antibiotics
CPT/HCPCS: 71045; 73560; 73564; 80048; 80053; 83605; 85025; 85027; 85652; 86140; 87040; 87070; 87077; 87186; 87205; 88304; 93005; 93306; 96360; 96361; 97110; 97162; 97166; 99285; C1713; C1776; J0878; J1335